=== PATIENT | male | born 1950 | race Hispanic/Latino ===

== ENCOUNTER 2018-11-11 11:47 | Inpatient (IN) | payer MEDICARE, BC, OTHER ==
[2018-11-11 11:47] VITALS: BMI 32.3
[2018-11-11] MEDS ORDERED: Piperacillin/Tazobact 3.375 GM in Sodium Chloride 0.9% 100 ML IVPB STA (12:49)
[2018-11-11] MEDS ORDERED: Morphine 4 MG/ML VIAL IVP STA (12:52)
[2018-11-11] MEDS ORDERED: Piperacillin/Tazobact 3.375 gm Inj IVPB ONE (13:08)
[2018-11-11] MEDS ORDERED: Vancomycin 1 g Inj ONE (13:09)
--- NOTE | 2018-11-11 13:09 | ED PDOC ---
Lower Extremity Pain/Injury Time Seen by Provider: 11/11/18 12:16 Chief Complaint (Nursing): Lower Extremity Problem/Injury Chief Complaint (Provider): Wound to left ankle History Per: Patient History/Exam Limitations: no limitations Onset/Duration Of Symptoms: Persistent Current Symptoms Are (Timing): Still Present Additional Complaint(s): 68yo male, with history of hypertension, HCH, diabetes, right BKA, comes to ER for evaluation of a wound on his left ankle. Patient states he was instructed by Dr. Deluna to come to ER for further evaluation. Patient states he had a wound vac placed on October 23 and since yesterday, he developed chill. He took a Tylenol as well as a Percocet, with no relief of symptoms. Patient otherwise denies any cough, congestion, shortness of breath, chest pain, numbness or tingling. He offers no additional complaints. PMD: Dr. Hutton Past Medical History Reviewed: Historical Data, Nursing Documentation, Vital Signs Vital Signs: Last Vital Signs Temp 98.5 F 11/11/18 12:11 Pulse 113 H 11/11/18 12:11 Resp 20 11/11/18 12:11 BP 132/79 11/11/18 12:11 Pulse Ox 97 11/11/18 12:11 - Medical History PMH: CAD, Diabetes, HTN, Hypercholesterolemia, Peripheral Edema Denies: Fractures, Chronic Kidney Disease - Surgical History Surgical History: Coronary Stent (x 4 ) - Family History Family History: States: Unknown Family Hx - Home Medications Home Medications: Ambulatory Orders Medication Instructions Recorded Atorvastatin [Lipitor] 40 mg PO HS 07/25/18 Carvedilol [Coreg] 3.125 mg PO Q12 07/25/18 Clopidogrel [Plavix] 75 mg PO DAILY 07/25/18 Empagliflozin/Metformin HCl 1 tab PO BID 07/25/18 [Synjardy Xr 12.5-1,000 mg Tab] Ergocalciferol (Vitamin D2) 50,000 unit PO SAT 07/25/18 [Vitamin D2] Insulin Degludec/Liraglutide 38 units SQ HS 07/25/18 [Xultophy 100 Unit-3.6 mg/ml] Lisinopril [Zestril] 5 mg PO DAILY 07/25/18 Multivit-Min/FA/Lycopen/Lutein 1 each PO DAILY 07/25/18 [Centrum Silver Tablet] Propylene Glycol/Peg 400 [Systane 1 drop BOTHEYES DAILY 07/25/18 0.3-0.4% Eye Drops] RX: Aspirin 325 mg PO DAILY 07/25/18 Cu/Se/Vit A/Vit C/Vit E/Zinc 1 tab PO DAILY 11/11/18 [Ocuvite] Ojiis-5-Ewpl Ethyl Esters 1 GM 2 gm PO HS 11/11/18 [Lovaza] - Allergies Allergies/Adverse Reactions: Allergies Allergy/AdvReac Type Severity Reaction Status Date / Time No Known Allergies Allergy Verified 07/25/18 13:54 Review of Systems ROS Statement: Except As Marked, All Systems Reviewed And Found Negative Constitutional: Positive for: Chills. Negative for: Fever Cardiovascular: Negative for: Chest Pain Respiratory: Negative for: Shortness of Breath Musculoskeletal: Positive for: Other (wound to left foot) Skin: Negative for: Rash Physical Exam - Reviewed Nursing Documentation Reviewed: Yes Vital Signs Reviewed: Yes - Physical Exam Appears: Positive for: Non-toxic, No Acute Distress Head Exam: Positive for: ATRAUMATIC, NORMAL INSPECTION, NORMOCEPHALIC Skin: Positive for: Normal Color Eye Exam: Positive for: Normal appearance Neck: Positive for: Supple Cardiovascular/Chest: Positive for: Regular Rate, Rhythm Respiratory: Positive for: Normal Breath Sounds Pulses-Dorsalis Pedis (L): 1+ Back: Positive for: Normal Inspection Extremity: Positive for: Other (right BKA; left lateral malleolus with superficial ulcer; (+) yellow drainage noted, with moderate surrounding erythema and warmth). Negative for: Tenderness, Calf Tenderness Neurologic/Psych: Positive for: Alert, Oriented - Laboratory Results Result Diagrams: 11/11/18 13:15 11/11/18 13:15 - ECG ECG: Positive for: Interpreted By Me, Viewed By Me ECG Rhythm: Positive for: Sinus Tachycardia Rate: 105 O2 Sat by Pulse Oximetry: 97 (RA) Pulse Ox Interpretation: Normal - Radiology X-Ray: Interpreted by Me, Viewed By Me X-Ray Interpretation: No Acute Disease, Other (poor inspiration) Medical Decision Making Medical Decision Making: Impression: 68yo male with non-healing wound to left lateral malleolus Plan: -- Podiatry consult -- Labs -- Morphine 2mg IV -- Zofran 4mg IV 1250 Case discussed with Meenakshi, podiatry resident, who is requesting ankle films, IV Vancomysin and IV Zosyn. She states to not remove the dressing at this time. 1415 XR Left ankle FINDINGS: BONES: Plantar and Achilles Tendon insertion calcaneal spurs. No fractures identified. JOINTS: Normal. No osteoarthritis. Ankle mortise maintained. Talar dome intact SOFT TISSUES: Soft tissue swelling about the ankle anteriorly and laterally. There may be an ulcer related to the distal fibula. No adjacent underlying osseous abnormalities. OTHER FINDINGS: None. IMPRESSION: Soft tissue swelling without acute articular or osseous abnormality. 1415 Lactate noted to be 2.[address] Perkins, recommends bolus and repeat VBG in 3 hours. Patient informed of plan, agrees and states is pain has improved. 1545 Patient seen and evaluated by podiatry resident at bedside. [address] Pino, and patient to be admitted under his service. Dr. Anderson for ID consult per Dr. Pino's request. Plan for admission discussed with patient, who is agreeable. Scribe Attestation: Documented by Gracy Mcadams, acting as a scribe for KEVON Valverde. Provider Scribe Attestation: All medical record entries made by the Scribe were at my direction and personally dictated by me. I have reviewed the chart and agree that the record accurately reflects my personal performance of the history, physical exam, medical decision making, and the department course for this patient. I have also personally directed, reviewed, and agree with the discharge instructions and disposition. Disposition - Clinical Impression Clinical Impression: Cellulitis, Diabetic foot ulcer - Patient ED Disposition Is Patient to be Admitted: Yes - Disposition Disposition Time: 18:05 Condition: FAIR - Pt Status Changed To: Hospital Disposition Of: Inpatient - Admit Certification Admit to Inpatient:: After my assessment, the patient will require hospitalization for at least two midnights. This is because of the severity of symptoms shown, intensity of services needed, and/or the medical risk in this patient being treated as an outpatient.
--- NOTE | 2018-11-11 14:16 | RAD ---
Date of service: 11/11/2018 PROCEDURE: Left Ankle Radiographs. HISTORY: Pain. No history of recent/ related trauma provided COMPARISON: None available. FINDINGS: BONES: Plantar and Achilles Tendon insertion calcaneal spurs. No fractures identified. JOINTS: Normal. No osteoarthritis. Ankle mortise maintained. Talar dome intact SOFT TISSUES: Soft tissue swelling about the ankle anteriorly and laterally. There may be an ulcer related to the distal fibula. No adjacent underlying osseous abnormalities. OTHER FINDINGS: None. IMPRESSION: Soft tissue swelling without acute articular or osseous abnormality.
[2018-11-11 14:17] LABS: VENOUS BLOOD GAS BASE EXCESS 1.5 mmol/L (0.0-2.0); VENOUS BLOOD GAS PCO2 49 mmHg (40-60); VENOUS BLOOD GAS PO2 28 mm/Hg (30-55); VENOUS BLOOD PH 7.36 (7.32-7.43)
[2018-11-11] MEDS ORDERED: Sodium Chloride 0.9% 1,000 ML IV STA (14:21)
[2018-11-11 14:51] LABS: BASO # 0.1 K/uL (0.0-0.2); EOS # 0.3 K/uL (0.0-0.7); MEAN CORPUSCULAR HEMOGLOBIN 26.6 pg (27.0-31.0); MONO # 1.2 K/uL (0.0-0.8)
[2018-11-11 14:55] LABS: ALB/GLOB RATIO 1.2 (1.0-2.1); ALBUMIN 4.6 g/dL (3.5-5.0); BLOOD UREA NITROGEN 30 mg/dl (9-20); CALCIUM 10.2 mg/dL (8.4-10.2); GFR NON-AFRICAN AMERICAN > 60
[2018-11-11 14:56] LABS: ALT/SGPT 20 U/L (21-72); AST/SGOT 25 U/L (17-59)
[2018-11-11 15:00] LABS: BASO % 0.7 % (0.0-2.0); EOS % 2.7 % (0.0-4.0); HEMOGLOBIN 14.9 g/dL (12.0-18.0); LYMPH % 8.5 % (20.0-40.0); MEAN CELL VOLUME 82.8 fl (80.0-94.0); MEAN CORPUSCULAR HGB CONC 32.2 g/dL (33.0-37.0); MEAN PLATELET VOLUME 9.7 fl (7.2-11.7); MONO % 10.7 % (0.0-10.0); NEUT # 8.7 K/uL (1.8-7.0); NEUT % 77.4 % (50.0-75.0); NRBC % 0.1 % (0.0-0.0); PLATELET COUNT 199 K/uL (130-400); RBC 5.59 Mil/uL (4.40-5.90); RED CELL DISTRIBUTION WIDTH 14.9 % (11.5-14.5); WHITE BLOOD COUNT 11.2 K/uL (4.8-10.8)
--- NOTE | 2018-11-11 16:08 | CP.PCM.CON ---
History of Present Illness - History of Present Illness History of Present Illness: Podiatry Consult Note: Dr. Deluna 68 year old male patient with PMHx of DM, seen and evaluated for L ankle ulceration. Patient states that he saw Dr. Deluna today who recommended he come to the ED for IV antibiotics. Patient states that he has had the ulcer for over two and a half years, however it has not fully healed. He reports chills over the past day and states that his ulceration has caused him significant pain. Patient accompanied by his bedside at today's visit. Denies any additional acute complaints at this time. Denies N/V/F/SOB/CP. PMD: Dr. Hutton PMHx: DM2, HTN, CAD with stent placement, chronic PAD PSHx: R BKA SHx: Denies tobacco use, denies alcohol use ALL: NKDA Review of Systems - Constitutional Constitutional: As Per HPI Past Patient History - Past Medical History & Family History Past Medical History?: Yes - Past Social History Smoking Status: Never Smoked - CARDIAC Hx Hypercholesterolemia: Yes Hx Hypertension: Yes Hx Peripheral Edema: Yes - PULMONARY Hx Respiratory Disorders: No - NEUROLOGICAL Hx Neurological Disorder: No - HEENT Hx HEENT Problems: Yes Hx Cataracts: Yes Other/Comment: wears glasses, retinal hemorrhage 05/2014 - RENAL Hx Chronic Kidney Disease: No - ENDOCRINE/METABOLIC Hx Endocrine Disorders: Yes Hx Diabetes Mellitus Type 2: Yes - INTEGUMENTARY Hx Dermatological Problems: Yes (STUMP ULCER RT.) - MUSCULOSKELETAL/RHEUMATOLOGICAL Hx Fractures: No - GASTROINTESTINAL Hx Gastrointestinal Disorders: No Hx Gastroesophageal Reflux: Yes (no problems in the last 10 months) - GENITOURINARY/GYNECOLOGICAL Hx Genitourinary Disorders: No - PSYCHIATRIC Hx Emotional Abuse: No Hx Physical Abuse: No Hx Substance Use: No - SURGICAL HISTORY Hx Coronary Stent: Yes (x 4 ) - ANESTHESIA Hx Anesthesia Reactions: No Hx Malignant Hyperthermia: No Meds Allergies/Adverse Reactions: Allergies Allergy/AdvReac Type Severity Reaction Status Date / Time No Known Allergies Allergy Verified 07/25/18 13:54 Physical Exam - Constitutional Appears: Non-toxic, No Acute Distress - Head Exam Head Exam: ATRAUMATIC, NORMOCEPHALIC - Extremities Exam Additional comments: Left lower extremity exam, right BKA: Vascular: DP/PT 1/4, CFT < 3seconds, TG warm to [place]-wound area, + 1 edema noted perimalleolar region Ortho: Tenderness to palpation of malleolar site, R BKA, MMT 4/5, no pain with calf compression Neuro: Gross and protective sensation diminished Derm: Ulceration appreciated to lateral malleolus, measuring approximately 3cm x2cm x .4cm, with fibrous wound base. Mild serous drainage appreciated, no purulence, no malodor. Cellulitis appreciated to L anterior aspect of inferior 1/3 of leg extending to ankle joint and laterally to ulceration. No tunneling, no tracking, no probe to bone. - Neurological Exam Neurological exam: Alert, Oriented x3 - Psychiatric Exam Psychiatric exam: Normal Affect, Normal Mood Results - Vital Signs Recent Vital Signs: Last Vital Signs Temp 98.5 F 11/11/18 12:11 Pulse 105 H 11/11/18 15:47 Resp 20 11/11/18 12:11 BP 132/79 11/11/18 12:11 Pulse Ox 97 11/11/18 15:47 - Labs Result Diagrams: 11/11/18 13:15 11/11/18 13:15 Labs: Laboratory Results - last 24 hr 11/11/18 11/11/18 11/11/18 13:15 13:15 14:08 WBC 11.2 H RBC 5.59 Hgb 14.9 Hct 46.3 MCV 82.8 MCH 26.6 L MCHC 32.2 L RDW 14.9 H Plt Count 199 MPV 9.7 Neut % (Auto) 77.4 H Lymph % (Auto) 8.5 L Warren % (Auto) 10.7 H Eos % (Auto) 2.7 Baso % (Auto) 0.7 Neut # (Auto) 8.7 H Lymph # (Auto) 1.0 Warren # (Auto) 1.2 H Eos # (Auto) 0.3 Baso # (Auto) 0.1 pO2 28 L VBG pH 7.36 VBG pCO2 49 VBG HCO3 24.8 VBG Total CO2 29.2 H VBG O2 Sat (Calc) 54.5 VBG Base Excess 1.5 VBG Potassium 4.8 Glucose 162 H Lactate 2.3 H FiO2 21.0 Sodium 139 135.0 Potassium 4.8 Chloride 101 107.0 Carbon Dioxide 22 Anion Gap 21 H BUN 30 H Creatinine 0.9 Est GFR ( Amer) > 60 Est GFR (Non-Af Amer) > 60 Random Glucose 156 H Calcium 10.2 Total Bilirubin 0.7 AST 25 ALT 20 L D Alkaline Phosphatase 140 H D Total Protein 8.5 H Albumin 4.6 Globulin 3.9 Albumin/Globulin Ratio 1.2 Venous Blood Potassium 4.8 Influenza Typ A,B (EIA) 11/11/18 14:55 WBC RBC Hgb Hct MCV MCH MCHC RDW Plt Count MPV Neut % (Auto) Lymph % (Auto) Warren % (Auto) Eos % (Auto) Baso % (Auto) Neut # (Auto) Lymph # (Auto) Warren # (Auto) Eos # (Auto) Baso # (Auto) pO2 VBG pH VBG pCO2 VBG HCO3 VBG Total CO2 VBG O2 Sat (Calc) VBG Base Excess VBG Potassium Glucose Lactate FiO2 Sodium Potassium Chloride Carbon Dioxide Anion Gap BUN Creatinine Est GFR ( Amer) Est GFR (Non-Af Amer) Random Glucose Calcium Total Bilirubin AST ALT Alkaline Phosphatase Total Protein Albumin Globulin Albumin/Globulin Ratio Venous Blood Potassium Influenza Typ A,B (EIA) Negative for flu a/b Assessment & Plan - Assessment and Plan (Free Text) Assessment: 68 year old male patient with PMHx of DM, seen and evaluated for L ankle ulcer ation secondary to PAD and Diabetes . Plan: Patient seen and evaluated with all questions and concerns addressed Labs, vitals, chart reviewed; WBC 11.2, afebrile, lactate 2.3 Local wound care to L ankle ulceration; betadine, telfa, DSD L ankle x-ray taken; soft tissue swelling without acute articular or osseous abnormality Continue IV abx; vanc/zosyn C/w with pain control Wound cx taken; pending Will continue to follow Thank you for the consult - Date & Time Date: 11/11/18 Time: 16:04
--- NOTE | 2018-11-11 16:54 | RAD ---
Date of service: 11/11/2018 HISTORY: tachycardia COMPARISON: 07/20/2014. FINDINGS: LUNGS: No active pulmonary disease. PLEURA: No significant pleural effusion identified, no pneumothorax apparent. CARDIOVASCULAR: Atherosclerotic calcifications identified primarily aortic arch. No radiographic findings to suggest acute or significant cardiovascular disease. OSSEOUS STRUCTURES: No significant abnormalities. VISUALIZED UPPER ABDOMEN: Normal. OTHER FINDINGS: None. IMPRESSION: No active disease. No significant interval change compared to the prior examination(s).
[2018-11-11 17:07] LABS: EOSINOPHIL 4 % (0-7); LYMPHOCYTE 14 % (20-50); MONOCYTE 9 % (0-10); NEUTROPHIL 73 % (42-75); PLATELET ESTIMATE NORMAL (NORMAL); TOTAL CELLS COUNTED 100
[2018-11-11 17:08] LABS: ANISOCYTOSIS SLIGHT; OVALOCYTES SLIGHT
[2018-11-11 17:41] LABS: VENOUS BLOOD GAS BASE EXCESS -1.3 mmol/L (0.0-2.0); VENOUS BLOOD GAS PCO2 46 mmHg (40-60); VENOUS BLOOD GAS PO2 36 mm/Hg (30-55); VENOUS BLOOD PH 7.34 (7.32-7.43)
[2018-11-11 18:52] LABS: URINE BACTERIA RARE (<OCC); URINE BILIRUBIN NEGATIVE (NEGATIVE); URINE BLOOD NEGATIVE (NEGATIVE); URINE CLARITY CLEAR (Clear); URINE COLOR YELLOW (YELLOW); URINE GLUCOSE (UA) >=500 mg/dL (NEGATIVE); URINE LEUKOCYTE ESTERASE TRACE Leu/uL (Negative); URINE PROTEIN NEGATIVE (NEGATIVE); URINE UROBILINOGEN 0.2-1.0 mg/dL (0.2-1.0)
[2018-11-11] MEDS: Omega-3-Acid Ethyl Esters 1 GM Cap PO SCH (23:00)
[2018-11-11] MEDS: Piperacillin/Tazobact 3.375 GM in Sodium Chloride 0.9% 100 ML IVPB SCH (23:00)
[2018-11-12] MEDS ORDERED: Morphine 4 MG/ML VIAL IVP ONE (00:33)
[2018-11-12] MEDS: Piperacillin/Tazobact 3.375 GM in Sodium Chloride 0.9% 100 ML IVPB SCH ×4 (04:12→21:14)
--- NOTE | 2018-11-12 08:14 | CP.PCM.PN ---
Subjective - Date & Time of Evaluation Date of Evaluation: 11/12/18 Time of Evaluation: 08:14 - Subjective Subjective: Podiatry Consult Note: Dr. Deluna 68 year old male patient seen and evaluated for L ankle ulceration. Patient is resting comfortably and in NAD. He states that the outside of his ankle where his ulceration is located causes pain when he walks. Denies any additional acute complaints at this time. Denies N/V/F/SOB/CP. Objective - Vital Signs/Intake and Output Vital Signs (last 24 hours): Temp Pulse Resp BP Pulse Ox 98.0 F 98 H 16 113/76 95 11/12/18 05:13 11/12/18 05:13 11/12/18 05:13 11/12/18 05:13 11/12/18 05:13 - Medications Medications: Current Medications Aspirin (Aspirin) 325 mg PO DAILY [facility] Atorvastatin Calcium (Lipitor) 40 mg PO HS [facility] Last Admin: 11/11/18 23:00 Dose: Not Given Carvedilol (Coreg) 3.125 mg PO Q12 [facility] Clopidogrel Bisulfate (Plavix) 75 mg PO DAILY [facility] Ergocalciferol (Drisdol 50,000 Intl Units Cap) 1 cap PO SAT [facility] Home Med (Cu/Se/Vit A/Vit C/Vit E/Zinc [Ocuvite]) 1 tab PO DAILY [facility] Home Med (Empagliflozin/Metformin Hcl [Synjardy Xr 12.5-1,000 Mg Tab]) 1 tab PO BID [facility] Home Med (Insulin Degludec/Liraglutide [Xultophy 100 Unit-3.6mg/Ml Pen]) 38 units SQ HS [facility] Home Med (Multivit-Min/Fa/Lycopen/Lutein [Centrum Silver Tablet]) 1 each PO DAILY [facility] Home Med (Propylene Glycol/Peg 400 [Systane 0.3-0.4% Eye Drops]) 1 drop BOTHEYES DAILY [facility] Vancomycin HCl 1 gm/ Sodium (Chloride) 250 mls @ 166.667 mls/hr IVPB DAILY [facility]; Protocol Piperacillin Sod/Tazobactam (Sod 3.375 gm/ Sodium Chloride) 100 mls @ 100 mls/hr IVPB Q6 [facility]; Protocol Last Admin: 11/12/18 04:12 Dose: 100 mls/hr Lisinopril (Zestril) 5 mg PO DAILY [facility] [id number] Ethyl Esters (Lovaza) 2 gm PO HS [facility] Last Admin: 11/11/18 23:00 Dose: Not Given - Labs Labs: 11/11/18 13:15 11/11/18 13:15 - Constitutional Appears: Non-toxic, No Acute Distress - Extremities Exam Additional comments: Left lower extremity exam, right BKA: Vascular: DP/PT 1/4, CFT < 3seconds, TG warm to touch to [place]-wound area, + 1 edema noted perimalleolar region Ortho: Tenderness to palpation of malleolar site, R BKA, MMT 4/5, no pain with calf compression Neuro: Gross and protective sensation diminished Derm: Ulceration appreciated to lateral malleolus, measuring approximately 3cm x2cm x .4cm, with fibrous wound base. Mild serous drainage appreciated, no purulence, no malodor. Cellulitis appreciated to L anterior aspect of inferior 1/3 of leg extending to ankle joint and laterally to ulceration. No tunneling, no tracking, no probe to bone. - Neurological Exam Neurological Exam: Alert, Awake, Oriented x3 - Psychiatric Exam Psychiatric exam: Normal Mood Assessment and Plan - Assessment and Plan (Free Text) Assessment: 68 year old male patient with PMHx of DM, seen and evaluated for L ankle ulceration secondary to PAD and diabetes Plan: Patient seen and evaluated with all questions and concerns addressed Labs, vitals, chart reviewed; WBC 11.2, afebrile Local wound care to L ankle ulceration; betadine, telfa, DSD L ankle x-ray taken; soft tissue swelling without acute articular or osseous abnormality Continue IV abx; vanc/zosyn ID reccs appreciated C/w with pain control Wound cx taken; results pending Will continue to follow
--- NOTE | 2018-11-12 10:09 | CP.PCM.CON ---
Past Patient History - Past Medical History & Family History Past Medical History?: Yes - Past Social History Smoking Status: Never Smoked - CARDIAC Hx Hypercholesterolemia: Yes Hx Hypertension: Yes Hx Peripheral Edema: Yes - PULMONARY Hx Respiratory Disorders: No - NEUROLOGICAL Hx Neurological Disorder: No - HEENT Hx HEENT Problems: Yes Hx Cataracts: Yes Other/Comment: wears glasses, retinal hemorrhage 05/2014 - RENAL Hx Chronic Kidney Disease: No - ENDOCRINE/METABOLIC Hx Endocrine Disorders: Yes Hx Diabetes Mellitus Type 2: Yes - INTEGUMENTARY Hx Dermatological Problems: No - MUSCULOSKELETAL/RHEUMATOLOGICAL Hx Fractures: No - GASTROINTESTINAL Hx Gastrointestinal Disorders: No Hx Gastroesophageal Reflux: No - GENITOURINARY/GYNECOLOGICAL Hx Genitourinary Disorders: No - PSYCHIATRIC Hx Psychophysiologic Disorder: No Hx Emotional Abuse: No Hx Physical Abuse: No Hx Substance Use: No - SURGICAL HISTORY Hx Coronary Stent: Yes (x 4 ) - ANESTHESIA Hx Anesthesia: Yes Hx Anesthesia Reactions: No Hx Malignant Hyperthermia: No Has any member of the family had a problem w/ anesthesia?: No Meds Allergies/Adverse Reactions: Allergies Allergy/AdvReac Type Severity Reaction Status Date / Time No Known Allergies Allergy Verified 07/25/18 13:54 - Medications Medications: Current Medications Aspirin (Aspirin) 325 mg PO DAILY [facility] Last Admin: 11/12/18 09:08 Dose: 325 mg Atorvastatin Calcium (Lipitor) 40 mg PO HS [facility] Last Admin: 11/11/18 23:00 Dose: Not Given Carvedilol (Coreg) 3.125 mg PO Q12 [facility] Last Admin: 11/12/18 09:02 Dose: 3.125 mg Clopidogrel Bisulfate (Plavix) 75 mg PO DAILY [facility] Last Admin: 11/12/18 09:02 Dose: 75 mg Ergocalciferol (Drisdol 50,000 Intl Units Cap) 1 cap PO SAT [facility] Home Med (Cu/Se/Vit A/Vit C/Vit E/Zinc [Ocuvite]) 1 tab PO DAILY [facility] Home Med (Empagliflozin/Metformin Hcl [Synjardy Xr 12.5-1,000 Mg Tab]) 1 tab PO BID [facility] Home Med (Insulin Degludec/Liraglutide [Xultophy 100 Unit-3.6mg/Ml Pen]) 38 units SQ HS [facility] Home Med (Multivit-Min/Fa/Lycopen/Lutein [Centrum Silver Tablet]) 1 each PO DAILY [facility] Home Med (Propylene Glycol/Peg 400 [Systane 0.3-0.4% Eye Drops]) 1 drop BOTHEYES DAILY [facility] Vancomycin HCl 1 gm/ Sodium (Chloride) 250 mls @ 166.667 mls/hr IVPB DAILY [facility]; Protocol Last Admin: 11/12/18 09:03 Dose: 166.667 mls/hr Piperacillin Sod/Tazobactam (Sod 3.375 gm/ Sodium Chloride) 100 mls @ 100 mls/hr IVPB Q6 [facility]; Protocol Last Admin: 11/12/18 09:04 Dose: 100 mls/hr Lisinopril (Zestril) 5 mg PO DAILY [facility] Last Admin: 11/12/18 09:04 Dose: 5 mg [id number] Ethyl Esters (Lovaza) 2 gm PO HS [facility] Last Admin: 11/11/18 23:00 Dose: Not Given Results - Vital Signs Recent Vital Signs: Last Vital Signs Temp 98.2 F 11/12/18 08:27 Pulse 97 H 11/12/18 09:04 Resp 18 11/12/18 08:27 BP 130/83 11/12/18 09:04 Pulse Ox 94 L 11/12/18 08:27 - Labs Result Diagrams: 11/11/18 13:15 11/11/18 13:15 Labs: Laboratory Results - last 24 hr 11/11/18 11/11/18 11/11/18 13:15 13:15 14:08 WBC 11.2 H RBC 5.59 Hgb 14.9 Hct 46.3 MCV 82.8 MCH 26.6 L MCHC 32.2 L RDW 14.9 H Plt Count 199 MPV 9.7 Neut % (Auto) 77.4 H Lymph % (Auto) 8.5 L Bond % (Auto) 10.7 H Eos % (Auto) 2.7 Baso % (Auto) 0.7 Neut # (Auto) 8.7 H Lymph # (Auto) 1.0 Bond # (Auto) 1.2 H Eos # (Auto) 0.3 Baso # (Auto) 0.1 Neutrophils % (Manual) 73 Lymphocytes % (Manual) 14 L Monocytes % (Manual) 9 Eosinophils % (Manual) 4 Platelet Estimate Normal Anisocytosis (manual) Slight Ovalocytes Slight pO2 28 L VBG pH 7.36 VBG pCO2 49 VBG HCO3 24.8 VBG Total CO2 29.2 H VBG O2 Sat (Calc) 54.5 VBG Base Excess 1.5 VBG Potassium 4.8 Glucose 162 H Lactate 2.3 H FiO2 21.0 Sodium 139 135.0 Potassium 4.8 Chloride 101 107.0 Carbon Dioxide 22 Anion Gap 21 H BUN 30 H Creatinine 0.9 Est GFR ( Amer) > 60 Est GFR (Non-Af Amer) > 60 POC Glucose (mg/dL) Random Glucose 156 H Calcium 10.2 Total Bilirubin 0.7 AST 25 ALT 20 L D Alkaline Phosphatase 140 H D Total Protein 8.5 H Albumin 4.6 Globulin 3.9 Albumin/Globulin Ratio 1.2 Venous Blood Potassium 4.8 Urine Color Urine Clarity Urine pH Ur Specific Franklin Urine Protein Urine Glucose (UA) Urine Ketones Urine Blood Urine Nitrate Urine Bilirubin Urine Urobilinogen Ur Leukocyte Esterase Urine RBC (Auto) Urine Microscopic WBC Urine Bacteria Influenza Typ A,B (EIA) 11/11/18 11/11/18 11/11/18 14:55 17:30 18:40 WBC RBC Hgb Hct MCV MCH MCHC RDW Plt Count MPV Neut % (Auto) Lymph % (Auto) Bond % (Auto) Eos % (Auto) Baso % (Auto) Neut # (Auto) Lymph # (Auto) Bond # (Auto) Eos # (Auto) Baso # (Auto) Neutrophils % (Manual) Lymphocytes % (Manual) Monocytes % (Manual) Eosinophils % (Manual) Platelet Estimate Anisocytosis (manual) Ovalocytes pO2 36 VBG pH 7.34 VBG pCO2 46 VBG HCO3 23.0 VBG Total CO2 26.2 VBG O2 Sat (Calc) 71.3 H VBG Base Excess -1.3 L VBG Potassium 4.1 Glucose 229 H Lactate 2.0 FiO2 21.0 Sodium 136.0 Potassium Chloride 107.0 Carbon Dioxide Anion Gap BUN Creatinine Est GFR ( Amer) Est GFR (Non-Af Amer) POC Glucose (mg/dL) Random Glucose Calcium Total Bilirubin AST ALT Alkaline Phosphatase Total Protein Albumin Globulin Albumin/Globulin Ratio Venous Blood Potassium 4.1 Urine Color Yellow Urine Clarity Clear Urine pH 6.0 Ur Specific Franklin 1.026 Urine Protein Negative Urine Glucose (UA) >=500 Urine Ketones Negative Urine Blood Negative Urine Nitrate Negative Urine Bilirubin Negative Urine Urobilinogen 0.2-1.0 Ur Leukocyte Esterase Trace Urine RBC (Auto) 3 Urine Microscopic WBC 9 H Urine Bacteria Rare Influenza Typ A,B (EIA) Negative for flu a/b 11/11/18 11/12/18 22:14 05:59 WBC RBC Hgb Hct MCV MCH MCHC RDW Plt Count MPV Neut % (Auto) Lymph % (Auto) Bond % (Auto) Eos % (Auto) Baso % (Auto) Neut # (Auto) Lymph # (Auto) Bond # (Auto) Eos # (Auto) Baso # (Auto) Neutrophils % (Manual) Lymphocytes % (Manual) Monocytes % (Manual) Eosinophils % (Manual) Platelet Estimate Anisocytosis (manual) Ovalocytes pO2 VBG pH VBG pCO2 VBG HCO3 VBG Total CO2 VBG O2 Sat (Calc) VBG Base Excess VBG Potassium Glucose Lactate FiO2 Sodium Potassium Chloride Carbon Dioxide Anion Gap BUN Creatinine Est GFR ( Amer) Est GFR (Non-Af Amer) POC Glucose (mg/dL) 194 H 165 H Random Glucose Calcium Total Bilirubin AST ALT Alkaline Phosphatase Total Protein Albumin Globulin Albumin/Globulin Ratio Venous Blood Potassium Urine Color Urine Clarity Urine pH Ur Specific Franklin Urine Protein Urine Glucose (UA) Urine Ketones Urine Blood Urine Nitrate Urine Bilirubin Urine Urobilinogen Ur Leukocyte Esterase Urine RBC (Auto) Urine Microscopic WBC Urine Bacteria Influenza Typ A,B (EIA)
--- NOTE | 2018-11-12 12:32 | CARD ---
APPROVED REPORT Date of service: 11/11/2018 EKG Measurement Heart [id number] <Conclusion> Sinus tachycardia with 1st degree AV block Left axis deviation Right bundle branch block Abnormal ECG
[2018-11-12] MEDS: Omega-3-Acid Ethyl Esters 1 GM Cap PO SCH (21:16)
--- NOTE | 2018-11-13 07:02 | CP.PCM.HP ---
History of Present Illness - History of Present Illness History of Present Illness: This is a 68 y/o male admitted due to left ankle wound infection. He has a hx of PVD and recurrent left ankle ulcer and follows up with Podiatry. At his last visit he was noted to have infected wound hence was advised hospitalization for Iv antibiotics. Medical Hx PVD HTN Uncontrolled DM 2 right BKA Present on Admission - Present on Admission Any Indicators Present on Admission: No History of DVT/PE: No History of Uncontrolled Diabetes: Yes Urinary Catheter: No Decubitus Ulcer Present: No Review of Systems - Genitourinary Genitourinary: Urinary Frequency, Urinary Urgency Past Patient History - Past Medical History & Family History Past Medical History?: Yes - Past Social History Smoking Status: Never Smoked - CARDIAC Hx Hypercholesterolemia: Yes Hx Hypertension: Yes Hx Peripheral Edema: Yes - PULMONARY Hx Respiratory Disorders: No - NEUROLOGICAL Hx Neurological Disorder: No - HEENT Hx HEENT Problems: Yes Hx Cataracts: Yes Other/Comment: wears glasses, retinal hemorrhage 05/2014 - RENAL Hx Chronic Kidney Disease: No - ENDOCRINE/METABOLIC Hx Endocrine Disorders: Yes Hx Diabetes Mellitus Type 2: Yes - INTEGUMENTARY Hx Dermatological Problems: No - MUSCULOSKELETAL/RHEUMATOLOGICAL Hx Fractures: No - GASTROINTESTINAL Hx Gastrointestinal Disorders: No Hx Gastroesophageal Reflux: No - GENITOURINARY/GYNECOLOGICAL Hx Genitourinary Disorders: No - PSYCHIATRIC Hx Psychophysiologic Disorder: No Hx Emotional Abuse: No Hx Physical Abuse: No Hx Substance Use: No - SURGICAL HISTORY Hx Coronary Stent: Yes (x 4 ) - ANESTHESIA Hx Anesthesia: Yes Hx Anesthesia Reactions: No Hx Malignant Hyperthermia: No Has any member of the family had a problem w/ anesthesia?: No Meds Allergies/Adverse Reactions: Allergies Allergy/AdvReac Type Severity Reaction Status Date / Time No Known Allergies Allergy Verified 07/25/18 13:54 Physical Exam - Head Exam Head Exam: NORMAL INSPECTION - Eye Exam Eye Exam: Normal appearance - ENT Exam ENT Exam: Mucous Membranes Moist - Respiratory Exam Respiratory Exam: Clear to Auscultation Bilateral - Cardiovascular Exam Cardiovascular Exam: REGULAR RHYTHM - GI/Abdominal Exam GI & Abdominal Exam: Normal Bowel Sounds - Neurological Exam Neurological exam: CN II-XII Intact, Oriented x3 - Psychiatric Exam Psychiatric exam: Normal Mood Results - Vital Signs Recent Vital Signs: Last Vital Signs Temp 98.4 F 11/13/18 01:00 Pulse 100 H 11/13/18 01:00 Resp 18 11/13/18 01:00 BP 112/72 11/13/18 01:00 Pulse Ox 94 L 11/13/18 01:00 - Labs Result Diagrams: 11/11/18 13:15 11/11/18 13:15 Labs: Laboratory Results - last 24 hr 11/12/18 11/12/18 11/12/18 11:21 16:09 21:43 POC Glucose (mg/dL) 246 H 269 H 221 H Vancomycin Trough 11/13/18 11/13/18 05:05 05:16 POC Glucose (mg/dL) 226 H Vancomycin Trough 6.4 Assessment & Plan (1) Diabetic foot ulcer Status: Acute (2) Cellulitis Status: Acute (3) Diabetes mellitus type 2 in obese Status: Acute (4) Anemia Status: Chronic (5) CAD (coronary artery disease) Status: Chronic Priority: Medium (6) Hypertension Status: Chronic (7) Peripheral vascular disease of extremity Status: Chronic Priority: High Onset Date: 10/20/14 - Assessment and Plan (Free Text) Plan: start IV antibiotics ID eval podiatry cont home meds. pain meds.
[2018-11-13] MEDS ORDERED: Povidone Iodine Topical 10% Sol ONE (07:52)
[2018-11-13] MEDS: METFORMIN HCL PO SCH ×2 (08:31→17:21)
[2018-11-13] MEDS: Patient's Own Med (Cu/Se/Vit A/Vit C/Vit E/Zinc [Ocuvite] 1 TAB) PO SCH (08:31)
[2018-11-13] MEDS: EMPAGLIFLOZIN PO SCH ×2 (08:31→17:21)
[2018-11-13] MEDS: LYCOPEN PO SCH ×2 (08:32→08:34)
[2018-11-13] MEDS: [UNRECOGNIZED DRUG - OTHER] PO SCH ×2 (08:32→08:34)
[2018-11-13] MEDS: MULTIVIT MIN PO SCH ×2 (08:32→08:34)
[2018-11-13] MEDS: LUTEIN PO SCH ×2 (08:32→08:34)
[2018-11-13] MEDS: PEG BOTHEYES SCH (08:35)
[2018-11-13] MEDS: PROPYLENE GLYCOL BOTHEYES SCH (08:35)
--- NOTE | 2018-11-13 09:09 | CP.PCM.PN ---
Subjective - Date & Time of Evaluation Date of Evaluation: 11/13/18 Time of Evaluation: 09:09 - Subjective Subjective: Podiatry Consult Note: Dr. Deluna 68 year old male patient seen and evaluated for L ankle ulceration and cellulitis. Patient AAOx3 and in NAD. Patient states that he has not been able to sleep well the past two days. He states that his leg is causing him pain especially during the middle of the night, however the Tylenol typically helps. Patient denies any additional acute pedal complaints at this time. Denies N/V/F/SOB/CP. Objective - Vital Signs/Intake and Output Vital Signs (last 24 hours): Temp Pulse Resp BP Pulse Ox 97.2 F L 95 H 20 129/74 95 11/13/18 08:49 11/13/18 08:49 11/13/18 08:49 11/13/18 08:49 11/13/18 08:49 - Medications Medications: Current Medications Acetaminophen (Tylenol 325mg Tab) 650 mg PO Q6 PRN PRN Reason: Pain, Mild (1-3) Last Admin: 11/13/18 08:25 Dose: 650 mg Aspirin (Aspirin) 325 mg PO DAILY [facility] Last Admin: 11/12/18 09:08 Dose: 325 mg Atorvastatin Calcium (Lipitor) 40 mg PO HS [facility] Last Admin: 11/12/18 21:15 Dose: 40 mg Carvedilol (Coreg) 3.125 mg PO Q12 [facility] Last Admin: 11/13/18 08:30 Dose: 3.125 mg Clopidogrel Bisulfate (Plavix) 75 mg PO DAILY [facility] Last Admin: 11/13/18 08:34 Dose: 75 mg Ergocalciferol (Drisdol 50,000 Intl Units Cap) 1 cap PO SAT [facility] Home Med (Cu/Se/Vit A/Vit C/Vit E/Zinc [Ocuvite]) 1 tab PO DAILY [facility] Last Admin: 11/13/18 08:31 Dose: 1 tab Home Med (Empagliflozin/Metformin Hcl [Synjardy Xr 12.5-1,000 Mg Tab]) 1 tab PO BID [facility] Last Admin: 11/13/18 08:31 Dose: 1 tab Home Med (Insulin Degludec/Liraglutide [Xultophy 100 Unit-3.6mg/Ml Pen]) 38 units SQ [facility] Home Med (Multivit-Min/Fa/Lycopen/Lutein [Centrum Silver Tablet]) 1 each PO DAILY [facility] Last Admin: 11/13/18 08:34 Dose: 1 each Home Med (Propylene Glycol/Peg 400 [Systane 0.3-0.4% Eye Drops]) 1 drop BOTHEYES DAILY [facility] Last Admin: 11/13/18 08:35 Dose: 1 drop Lisinopril (Zestril) 5 mg PO DAILY [facility] Last Admin: 11/13/18 08:35 Dose: 5 mg [id number]-9-[id number] Ethyl Esters (Lovaza) 2 gm PO HS [facility] Last Admin: 11/12/18 21:16 Dose: 2 gm - Labs Labs: 11/11/18 13:15 11/11/18 13:15 - Constitutional Appears: Non-toxic, No Acute Distress - Head Exam Head Exam: ATRAUMATIC, NORMOCEPHALIC - Extremities Exam Additional comments: Vascular: DP/PT 1/4, CFT < 3seconds, TG warm to touch to [place]-wound area, + 1 edema noted perimalleolar region Ortho: Tenderness to palpation of malleolar site, R BKA, MMT 4/5, no pain with calf compression Neuro: Gross and protective sensation diminished Derm: Ulceration appreciated to lateral malleolus, measuring approximately 3cm x2cm x .4cm, with fibrous wound base and macerated wound border. Mild serous drainage appreciated, no purulence, no malodor. Cellulitis appreciated to L anterior aspect of inferior 1/3 of leg extending to ankle joint and laterally to ulceration. No tunneling, no tracking, no probe to bone. - Neurological Exam Neurological Exam: Alert, Awake, Oriented x3 - Psychiatric Exam Psychiatric exam: Normal Affect, Normal Mood Assessment and Plan - Assessment and Plan (Free Text) Assessment: 68 year old male patient with PMHx of DM, seen and evaluated for L ankle ulceration secondary to PAD and diabetes Plan: Patient seen and evaluated with all questions and concerns addressed Labs, vitals, chart reviewed; afebrile Local wound care to L ankle ulceration; betadine, DSD L ankle x-ray taken; soft tissue swelling without acute articular or osseous abnormality Continue IV abx; vanc/zosyn Wound cx taken; staph aureus ID reccs appreciated C/w with pain control Will continue to follow
[2018-11-13 10:19] LABS: BASO % 0.3 % (0.0-2.0); EOS # 0.4 K/uL (0.0-0.7); EOS % 3.8 % (0.0-4.0); HEMOGLOBIN 13.6 g/dL (12.0-18.0); LYMPH # 0.9 K/uL (1.0-4.3); LYMPH % 8.2 % (20.0-40.0); MEAN CORPUSCULAR HEMOGLOBIN 26.7 pg (27.0-31.0); MEAN CORPUSCULAR HGB CONC 31.8 g/dL (33.0-37.0); MEAN PLATELET VOLUME 9.8 fl (7.2-11.7); MONO % 9.5 % (0.0-10.0); NEUT # 8.4 K/uL (1.8-7.0); NEUT % 78.2 % (50.0-75.0); NRBC % 0.1 % (0.0-0.0); RBC 5.1 Mil/uL (4.40-5.90); RED CELL DISTRIBUTION WIDTH 14.8 % (11.5-14.5); WHITE BLOOD COUNT 10.8 K/uL (4.8-10.8)
--- NOTE | 2018-11-13 11:37 | CP.PCM.CON ---
History of Present Illness - History of Present Illness History of Present Illness: 68 year old male patient with PMHx of DM, seen and evaluated for L ankle ulceration. Patient states that he has had the ulcer for over two and a half years, however it has not fully healed. He reports chills over the past day and states that his ulceration has caused him significant pain. Referred for ID evl for antibiotic management Started on empiric Vanco/Zosyn PMHx: DM2, HTN, CAD with stent placement, chronic PAD PSHx: R BKA SHx: Denies tobacco use, denies alcohol use ALL: NKDA Review of Systems - Review of Systems All systems: reviewed and no additional remarkable complaints except - Constitutional Constitutional: As Per HPI - EENT Eyes: absent: As Per HPI, Blind Spots, Blurred Vision, Change in Vision, Decreased Night Vision, Diplopia, Discharge, Dry Eye, Exophthalmos, Floaters, Irritation, Itchy Eyes, Loss of Peripheral Vision, Pain, Photophobia, Requires Corrective Lenses, Sees Flashes, Spots in Vision, Tunnel Vision, Other Visual Disturbances, Loss of Vision, Other Ears: absent: As Per HPI, Decreased Hearing, Ear Discharge, Ear Pain, Tinnitus, Abnormal Hearing, Disequilibrium, Dizziness, Other Nose/Mouth/Throat: absent: As Per HPI, Epistaxis, Nasal Congestion, Nasal Discharge, Nasal Obstruction, Nasal Trauma, Nose Pain, Post Nasal Drip, Sinus Pain, Sinus Pressure, Bleeding Gums, Change in Voice, Dental Pain, Dry Mouth, Dysphagia, Halitosis, Hoarsness, Lip Swelling, Mouth Lesions, Mouth Pain, Odyn ophagia, Sore Throat, Throat Swelling, Tongue Swelling, Facial Pain, Neck Pain, Neck Mass, Other - Cardiovascular Cardiovascular: absent: As Per HPI, Acrocyanosis, Chest Pain, Chest Pain at Rest, Chest Pain with Activity, Claudication, Diaphoresis, Dyspnea, Dyspnea on Exertion, Edema, Irregular Heart Rhythm, Pain Radiating to Arm/Neck/Jaw, Leg Edema, Leg Ulcers, Lightheadedness, Orthopnea, Palpitations, Paroxysmal Nocturnal Dyspnea, Pedal Edema, Radiating Pain, Rapid Heart Rate, Slow Heart Rate, Syncope, Other - Respiratory Respiratory: absent: Cough, Dyspnea, Hemoptysis, Dyspnea on Exertion, Wheezing, Snoring, Stridor, Pain on Inspiration, Chest Congestion, Excessive Mucous Production, Change in Mucous Color, Pain with Coughing, Other - Gastrointestinal Gastrointestinal: absent: As Per HPI, Abdominal Pain, Belching, Bloating, Change in Bowel Habits, Change in Stool Character, Coffee Ground Emesis, Constipation, Cramping, Diarrhea, Dyspepsia, Dysphagia, Early Satiety, Excessive Flatus, Fecal Incontinence, Heartburn, Hematemesis, Hematochezia, Loose Stools, Melena, Na usea, Odynophagia, Temesmus, Vomiting, Other - Genitourinary Genitourinary: absent: As Per HPI, Change in Urinary Stream, Difficulty Urinating, Dysuria, Flank Pain, Hematuria, Pyuria, Nocturia, Urinary Incontinence, Urinary Frequency, Urinary Hesitance, Urinary Urgency, Voiding Freq/Small Amts, Freq UTI, Hx Renal/Bladder Calculi, Hx /Renal Surgery, Bladder Distension, Other - Musculoskeletal Musculoskeletal: As Per HPI - Integumentary Integumentary: As Per HPI, Skin Pain, Wounds - Neurological Neurological: As Per HPI - Psychiatric Psychiatric: absent: As Per HPI, Abnormal Sleep Pattern, Anhedonia, Anxiety, Auditory Hallucinations, Behavioral Changes, Change in Appetite, Change in Libido, Confusion, Depression, Difficulty Concentrating, Hallucinations, Homicidal Ideation, Hopelessness, Irritability, Memory Loss, Mood Swings, Panic Attacks, Paranoia, Suicidal Ideation, Visual Hallucinations, Tactile Hallucinations, Other - Endocrine Endocrine: absent: As Per HPI, Change in Body Appearance, Change in Libido, Cold Intolorance, Deepening of Voice, Excessive Sweating, Fatigue, Flushing, Heat Intolorance, Increase in Ring/Shoe/Hat Size, Palpitations, Polydipsia, Polyphagia, Polyuria, Other Past Patient History - Past Medical History & Family History Past Medical History?: Yes - Past Social History Smoking Status: Never Smoked - CARDIAC Hx Hypercholesterolemia: Yes Hx Hypertension: Yes Hx Peripheral Edema: Yes - PULMONARY Hx Respiratory Disorders: No - NEUROLOGICAL Hx Neurological Disorder: No - HEENT Hx HEENT Problems: Yes Hx Cataracts: Yes Other/Comment: wears glasses, retinal hemorrhage 05/2014 - RENAL Hx Chronic Kidney Disease: No - ENDOCRINE/METABOLIC Hx Endocrine Disorders: Yes Hx Diabetes Mellitus Type 2: Yes - INTEGUMENTARY Hx Dermatological Problems: No - MUSCULOSKELETAL/RHEUMATOLOGICAL Hx Fractures: No - GASTROINTESTINAL Hx Gastrointestinal Disorders: No Hx Gastroesophageal Reflux: No - GENITOURINARY/GYNECOLOGICAL Hx Genitourinary Disorders: No - PSYCHIATRIC Hx Psychophysiologic Disorder: No Hx Emotional Abuse: No Hx Physical Abuse: No Hx Substance Use: No - SURGICAL HISTORY Hx Coronary Stent: Yes (x 4 ) - ANESTHESIA Hx Anesthesia: Yes Hx Anesthesia Reactions: No Hx Malignant Hyperthermia: No Has any member of the family had a problem w/ anesthesia?: No Meds Allergies/Adverse Reactions: Allergies Allergy/AdvReac Type Severity Reaction Status Date / Time No Known Allergies Allergy Verified 07/25/18 13:54 - Medications Medications: Current Medications Acetaminophen (Tylenol 325mg Tab) 650 mg PO Q6 PRN PRN Reason: Pain, Mild (1-3) Last Admin: 11/13/18 08:25 Dose: 650 mg Aspirin (Aspirin) 325 mg PO DAILY [facility] Last Admin: 11/12/18 09:08 Dose: 325 mg Atorvastatin Calcium (Lipitor) 40 mg PO HS [facility] Last Admin: 11/12/18 21:15 Dose: 40 mg Carvedilol (Coreg) 3.125 mg PO Q12 [facility] Last Admin: 11/13/18 08:30 Dose: 3.125 mg Clopidogrel Bisulfate (Plavix) 75 mg PO DAILY [facility] Last Admin: 11/13/18 08:34 Dose: 75 mg Ergocalciferol (Drisdol 50,000 Intl Units Cap) 1 cap PO SAT [facility] Home Med (Cu/Se/Vit A/Vit C/Vit E/Zinc [Ocuvite]) 1 tab PO DAILY [facility] Last Admin: 11/13/18 08:31 Dose: 1 tab Home Med (Empagliflozin/Metformin Hcl [Synjardy Xr 12.5-1,000 Mg Tab]) 1 tab PO BID [facility] Last Admin: 11/13/18 08:31 Dose: 1 tab Home Med (Insulin Degludec/Liraglutide [Xultophy 100 Unit-3.6mg/Ml Pen]) 38 units SQ HS [facility] Home Med (Multivit-Min/Fa/Lycopen/Lutein [Centrum Silver Tablet]) 1 each PO DAILY [facility] Last Admin: 11/13/18 08:34 Dose: 1 each Home Med (Propylene Glycol/Peg 400 [Systane 0.3-0.4% Eye Drops]) 1 drop BOTHEYES DAILY [facility] Last Admin: 11/13/18 08:35 Dose: 1 drop Vancomycin HCl 1 gm/ Sodium (Chloride) 250 mls @ 166.667 mls/hr IVPB Q12H [facility]; Protocol Piperacillin Sod/Tazobactam (Sod 3.375 gm/ Sodium Chloride) 100 mls @ 100 mls/hr IVPB Q6 [facility]; Protocol Lisinopril (Zestril) 5 mg PO DAILY [facility] Last Admin: 11/13/18 08:35 Dose: 5 mg Ihxrh-3-Oztp Ethyl Esters (Lovaza) 2 gm PO HS [facility] Last Admin: 11/12/18 21:16 Dose: 2 gm Tramadol HCl (Ultram) 50 mg PO Q6 PRN PRN Reason: Pain, moderate (4-7) Physical Exam - Constitutional Appears: Non-toxic, Chronically Ill - Head Exam Head Exam: NORMOCEPHALIC - Eye Exam Eye Exam: absent: Scleral icterus - ENT Exam ENT Exam: Mucous Membranes Dry - Neck Exam Neck exam: Negative for: Lymphadenopathy - Respiratory Exam Respiratory Exam: Decreased Breath Sounds, Prolonged Expiratory Phase, Rhonchi - Cardiovascular Exam Cardiovascular Exam: REGULAR RHYTHM, +S1, +S2 - GI/Abdominal Exam GI & Abdominal Exam: Diminished Bowel Sounds, Soft. absent: Tenderness - Rectal Exam Rectal Exam: Deferred - Exam Exam: NORMAL INSPECTION - Extremities Exam Extremities exam: Negative for: calf tenderness Additional comments: right BKA left foot with 4th and 5th digits amputated ulcer lateral malleolus ankle cellulitis ; left ankle pulses diminished - n/p Results - Vital Signs Recent Vital Signs: Last Vital Signs Temp 97.2 F L 11/13/18 08:49 Pulse 95 H 11/13/18 08:49 Resp 20 11/13/18 08:49 BP 129/74 11/13/18 08:49 Pulse Ox 95 11/13/18 08:49 - Labs Result Diagrams: 11/13/18 10:08 11/11/18 13:15 Labs: Laboratory Results - last 24 hr 11/12/18 11/12/18 11/12/18 11:21 16:09 21:43 WBC RBC Hgb Hct MCV MCH MCHC RDW Plt Count MPV Neut % (Auto) Lymph % (Auto) [place] % (Auto) Eos % (Auto) Baso % (Auto) Neut # (Auto) Lymph # (Auto) [place] # (Auto) Eos # (Auto) Baso # (Auto) POC Glucose (mg/dL) 246 H 269 H 221 H Vancomycin Trough 11/13/18 11/13/18 11/13/18 05:05 05:16 10:08 WBC 10.8 RBC 5.10 Hgb 13.6 Hct 42.8 MCV 84.0 MCH 26.7 L MCHC 31.8 L RDW 14.8 H Plt Count 200 MPV 9.8 Neut % (Auto) 78.2 H Lymph % (Auto) 8.2 L [place] % (Auto) 9.5 Eos % (Auto) 3.8 Baso % (Auto) 0.3 Neut # (Auto) 8.4 H Lymph # (Auto) 0.9 L [place] # (Auto) 1.0 H Eos # (Auto) 0.4 Baso # (Auto) 0.0 POC Glucose (mg/dL) 226 H Vancomycin Trough 6.4 11/13/18 11:04 WBC RBC Hgb Hct MCV MCH MCHC RDW Plt Count MPV Neut % (Auto) Lymph % (Auto) [place] % (Auto) Eos % (Auto) Baso % (Auto) Neut # (Auto) Lymph # (Auto) [place] # (Auto) Eos # (Auto) Baso # (Auto) POC Glucose (mg/dL) 290 H Vancomycin Trough Assessment & Plan (1) Cellulitis Status: Acute (2) Diabetic foot ulcer Status: Acute - Assessment and Plan (Free Text) Assessment: r/o OM left ankle cultures + for MSSA consider vascular eval await MRI for debridement will need assisted IV antibiotics 6-8 weeks likely
[2018-11-13] MEDS: Piperacillin/Tazobact 3.375 GM in Sodium Chloride 0.9% 100 ML IVPB SCH ×2 (17:21→22:37)
[2018-11-13] MEDS: Omega-3-Acid Ethyl Esters 1 GM Cap PO SCH (22:37)
[2018-11-13] MEDS: LIRAGLUTIDE SQ SCH (22:38)
[2018-11-13] MEDS: [UNRECOGNIZED DRUG - OTHER] SQ SCH (22:38)
[2018-11-13] MEDS: INSULIN DEGLUDEC SQ SCH (22:38)
--- NOTE | 2018-11-14 02:51 | CP.PCM.PN ---
Subjective - Date & Time of Evaluation Date of Evaluation: 11/13/18 Time of Evaluation: 08:30 - Subjective Subjective: Pt seen and assessed at bedside. Currently being treated for infected left ankle ulcer. Pt previously had a wound vac on affected wound, which he states was not working properly and led to the worsening of the infection. Wound cultures revealed staph aureus; pt is being treated with Zosyn and Vancomycin. Review of Systems - Review of Systems Review of Systems: left ankle ulcer Objective - Vital Signs/Intake and Output Vital Signs (last 24 hours): Temp Pulse Resp BP Pulse Ox 97.4 F L 87 18 112/64 95 11/14/18 01:28 11/14/18 01:28 11/14/18 01:28 11/14/18 01:28 11/14/18 01:28 - Medications Medications: Current Medications Acetaminophen (Tylenol 325mg Tab) 650 mg PO Q6 PRN PRN Reason: Pain, Mild (1-3) Last Admin: 11/13/18 08:25 Dose: 650 mg Aspirin (Aspirin) 325 mg PO DAILY [facility] Last Admin: 11/13/18 11:42 Dose: 325 mg Atorvastatin Calcium (Lipitor) 40 mg PO HS [facility] Last Admin: 11/13/18 22:37 Dose: 40 mg Carvedilol (Coreg) 3.125 mg PO Q12 [facility] Last Admin: 11/13/18 22:37 Dose: 3.125 mg Clopidogrel Bisulfate (Plavix) 75 mg PO DAILY [facility] Last Admin: 11/13/18 08:34 Dose: 75 mg Ergocalciferol (Drisdol 50,000 Intl Units Cap) 1 cap PO SAT [facility] Home Med (Cu/Se/Vit A/Vit C/Vit E/Zinc [Ocuvite]) 1 tab PO DAILY [facility] Last Admin: 11/13/18 08:31 Dose: 1 tab Home Med (Empagliflozin/Metformin Hcl [Synjardy Xr 12.5-1,000 Mg Tab]) 1 tab PO BID [facility] Last Admin: 11/13/18 17:21 Dose: 1 tab Home Med (Insulin Degludec/Liraglutide [Xultophy 100 Unit-3.6mg/Ml Pen]) 38 units SQ HS [facility] Last Admin: 11/13/18 22:38 Dose: 38 units Home Med (Multivit-Min/Fa/Lycopen/Lutein [Centrum Silver Tablet]) 1 each PO DAILY [facility] Last Admin: 11/13/18 08:34 Dose: 1 each Home Med (Propylene Glycol/Peg 400 [Systane 0.3-0.4% Eye Drops]) 1 drop BOTHEYES DAILY [facility] Last Admin: 11/13/18 08:35 Dose: 1 drop Vancomycin HCl 1 gm/ Sodium (Chloride) 250 mls @ 166.667 mls/hr IVPB Q12H [facility]; Protocol Last Admin: 11/13/18 22:36 Dose: 166.667 mls/hr Piperacillin Sod/Tazobactam (Sod 3.375 gm/ Sodium Chloride) 100 mls @ 100 mls/hr IVPB Q6 [facility]; Protocol Last Admin: 11/13/18 22:37 Dose: 100 mls/hr Lisinopril (Zestril) 5 mg PO DAILY [facility] Last Admin: 11/13/18 08:35 Dose: 5 mg Hhjwg-3-Vzjt Ethyl Esters (Lovaza) 2 gm PO HS [facility] Last Admin: 11/13/18 22:37 Dose: 2 gm Tramadol HCl (Ultram) 50 mg PO Q6 PRN PRN Reason: Pain, moderate (4-7) Last Admin: 11/13/18 22:35 Dose: 50 mg - Labs Labs: 11/13/18 10:08 11/11/18 13:15 - Constitutional Appears: Well - Head Exam Head Exam: NORMOCEPHALIC - Eye Exam Eye Exam: PERRL - ENT Exam ENT Exam: Mucous Membranes Moist - Neck Exam Neck Exam: Full ROM - Respiratory Exam Respiratory Exam: Clear to Ausculation Bilateral - Cardiovascular Exam Cardiovascular Exam: REGULAR RHYTHM, +S1, +S2 - GI/Abdominal Exam GI & Abdominal Exam: Soft - Extremities Exam Additional comments: Right BKA - Back Exam Back Exam: NORMAL INSPECTION - Neurological Exam Neurological Exam: Alert, Awake, Oriented x3 - Psychiatric Exam Psychiatric exam: Normal Mood - Skin Additional comments: left ankle diabetic foot ulcer Assessment and Plan (1) Diabetic foot ulcer Assessment & Plan: Assessment/Impression/Major Problems Now: 1.) Infected foot ulcer -Wound culture showed staph aureus -Infectious disease consult appreciated. -currently on Zosyn And vancomycin IVPB. -wound dressings done by podiatry. -monitor for s/s infection. -Pain uncontrolled by Tylenol, added on Ultram 50 mg. -strict glycemic control. Status: Acute
[2018-11-14] MEDS: Piperacillin/Tazobact 3.375 GM in Sodium Chloride 0.9% 100 ML IVPB SCH ×4 (04:46→21:10)
--- NOTE | 2018-11-14 08:34 | CP.PCM.PN ---
Subjective - Date & Time of Evaluation Date of Evaluation: 11/14/18 Time of Evaluation: 08:34 - Subjective Subjective: Podiatry Progres Note: Dr. Deluna 68 year old male patient seen and evaluated for L ankle ulceration and cellulitis. Patient AAOx3 and in NAD. Patient is aware of plan for surgery tomorrow for L ankle ulcer debridement. He states that his pain is more controlled today and his pain decreases when his foot is in the dependent position. Denies N/V/F/SOB/CP. Objective - Vital Signs/Intake and Output Vital Signs (last 24 hours): Temp Pulse Resp BP Pulse Ox 97.7 F 87 18 125/77 93 L 11/14/18 05:00 11/14/18 05:00 11/14/18 05:00 11/14/18 05:00 11/14/18 05:00 - Medications Medications: Current Medications Acetaminophen (Tylenol 325mg Tab) 650 mg PO Q6 PRN PRN Reason: Pain, Mild (1-3) Last Admin: 11/13/18 08:25 Dose: 650 mg Aspirin (Aspirin) 325 mg PO DAILY [facility] Last Admin: 11/13/18 11:42 Dose: 325 mg Atorvastatin Calcium (Lipitor) 40 mg PO HS [facility] Last Admin: 11/13/18 22:37 Dose: 40 mg Carvedilol (Coreg) 3.125 mg PO Q12 [facility] Last Admin: 11/13/18 22:37 Dose: 3.125 mg Clopidogrel Bisulfate (Plavix) 75 mg PO DAILY [facility] Last Admin: 11/13/18 08:34 Dose: 75 mg Ergocalciferol (Drisdol 50,000 Intl Units Cap) 1 cap PO SAT [facility] Home Med (Cu/Se/Vit A/Vit C/Vit E/Zinc [Ocuvite]) 1 tab PO DAILY [facility] Last Admin: 11/13/18 08:31 Dose: 1 tab Home Med (Empagliflozin/Metformin Hcl [Synjardy Xr 12.5-1,000 Mg Tab]) 1 tab PO BID [facility] Last Admin: 11/13/18 17:21 Dose: 1 tab Home Med (Insulin Degludec/Liraglutide [Xultophy 100 Unit-3.6mg/Ml Pen]) 38 units SQ HS [facility] Last Admin: 11/13/18 22:38 Dose: 38 units Home Med (Multivit-Min/Fa/Lycopen/Lutein [Centrum Silver Tablet]) 1 each PO DAILY [facility] Last Admin: 11/13/18 08:34 Dose: 1 each Home Med (Propylene Glycol/Peg 400 [Systane 0.3-0.4% Eye Drops]) 1 drop BOTHEYES DAILY [facility] Last Admin: 11/13/18 08:35 Dose: 1 drop Vancomycin HCl 1 gm/ Sodium (Chloride) 250 mls @ 166.667 mls/hr IVPB Q12H [facility]; Protocol Last Admin: 11/13/18 22:36 Dose: 166.667 mls/hr Piperacillin Sod/Tazobactam (Sod 3.375 gm/ Sodium Chloride) 100 mls @ 100 mls/hr IVPB Q6 [facility]; Protocol Last Admin: 11/14/18 04:46 Dose: 100 mls/hr Lisinopril (Zestril) 5 mg PO DAILY [facility] Last Admin: 11/13/18 08:35 Dose: 5 mg Suabd-5-Ccky Ethyl Esters (Lovaza) 2 gm PO HS [facility] Last Admin: 11/13/18 22:37 Dose: 2 gm Tramadol HCl (Ultram) 50 mg PO Q6 PRN PRN Reason: Pain, moderate (4-7) Last Admin: 11/14/18 05:51 Dose: 50 mg - Labs Labs: 11/13/18 10:08 11/11/18 13:15 - Constitutional Appears: Non-toxic, No Acute Distress - Head Exam Head Exam: ATRAUMATIC, NORMOCEPHALIC - Extremities Exam Additional comments: Vascular: DP/PT 1/4, CFT < 3seconds, TG warm to touch to [place]-wound area, + 1 edema noted perimalleolar region Ortho: Tenderness to palpation of malleolar site, R BKA, MMT 4/5, no pain with calf compression Neuro: Gross and protective sensation diminished Derm: Ulceration appreciated to lateral malleolus, measuring approximately 3cm x2cm x .4cm, with fibrous wound base and macerated wound border. Mild serous drainage appreciated, no purulence, no malodor. Cellulitis appreciated to L anterior aspect of inferior 1/3 of leg extending to ankle joint and laterally to ulceration; resolving. No tunneling, no tracking, no probe to bone. - Psychiatric Exam Psychiatric exam: Normal Affect, Normal Mood Assessment and Plan - Assessment and Plan (Free Text) Assessment: 68 year old male patient seen and evaluated for L ankle ulceration with cellulitis secondary to PAD and diabetes; cellulitis resolving Plan: Patient seen and evaluated with all questions and concerns addressed Labs, vitals, chart reviewed; afebrile, WBC trending down Local wound care to L ankle ulceration; betadine, DSD L ankle x-ray taken; soft tissue swelling without acute articular or osseous abnormality Wound cx taken; staph aureus C/w with pain control Per Dr. Deluna- patient has had extensive vascular workup with unsuccessful intervention ID reccs per Dr. Anderson Plan for OR Sunday at 1pm for wound debridement with Dr. Deluna NPO past midnight Will continue to follow
[2018-11-14] MEDS: Patient's Own Med (Cu/Se/Vit A/Vit C/Vit E/Zinc [Ocuvite] 1 TAB) PO SCH (09:07)
[2018-11-14] MEDS: EMPAGLIFLOZIN PO SCH ×2 (09:07→17:30)
[2018-11-14] MEDS: METFORMIN HCL PO SCH ×2 (09:07→17:30)
[2018-11-14] MEDS: [UNRECOGNIZED DRUG - OTHER] PO SCH (09:08)
[2018-11-14] MEDS: MULTIVIT MIN PO SCH (09:08)
[2018-11-14] MEDS: LYCOPEN PO SCH (09:08)
[2018-11-14] MEDS: LUTEIN PO SCH (09:08)
[2018-11-14] MEDS: PEG BOTHEYES SCH (09:09)
[2018-11-14] MEDS: PROPYLENE GLYCOL BOTHEYES SCH (09:09)
--- NOTE | 2018-11-14 12:29 | CP.PCM.CON ---
History of Present Illness - History of Present Illness History of Present Illness: I was asked to evaluate patient by Dr Hutton patient seen 11/14/18 [id number] Patient is a 68 yea rold male with HTN hypercholesterolemia DM CAD R BKA who presents with daibetic foot ulcer. He requires debridement. he denies chest pain or dyspnea. he has undergone outpatient workup and LV function is normal by echcardiogram. The patinet as multiple severe tibial occlusion swhich are not revascularizable form endovascular standpoint. Review of Systems - Constitutional Constitutional: absent: As Per HPI, Anorexia, Chills, Daytime Sleepiness, Excessive Sweating, Fatigue, Fever, Frequent Falls, Headache, Increased Appetite, Lethargy, Malaise, Night Sweats, Snoring, Sleep Apnea, Weight Gain, Weight Loss, Weakness, Other - EENT Eyes: absent: As Per HPI, Blind Spots, Blurred Vision, Change in Vision, Decreased Night Vision, Diplopia, Discharge, Dry Eye, Exophthalmos, Floaters, Irritation, Itchy Eyes, Loss of Peripheral Vision, Pain, Photophobia, Requires Corrective Lenses, Sees Flashes, Spots in Vision, Tunnel Vision, Other Visual Disturbances, Loss of Vision, Other Ears: absent: As Per HPI, Decreased Hearing, Ear Discharge, Ear Pain, Tinnitus, Abnormal Hearing, Disequilibrium, Dizziness, Other Nose/Mouth/Throat: absent: As Per HPI, Epistaxis, Nasal Congestion, Nasal Discharge, Nasal Obstruction, Nasal Trauma, Nose Pain, Post Nasal Drip, Sinus Pain, Sinus Pressure, Bleeding Gums, Change in Voice, Dental Pain, Dry Mouth, Dysphagia, Halitosis, Hoarsness, Lip Swelling, Mouth Lesions, Mouth Pain, Odynophagia, Sore Throat, Throat Swelling, Tongue Swelling, Facial Pain, Neck Pain, Neck Mass, Other - Cardiovascular Cardiovascular: absent: As Per HPI, Acrocyanosis, Chest Pain, Chest Pain at Rest, Chest Pain with Activity, Claudication, Diaphoresis, Dyspnea, Dyspnea on Exertion, Edema, Irregular Heart Rhythm, Pain Radiating to Arm/Neck/Jaw, Leg Edema, Leg Ulcers, Lightheadedness, Orthopnea, Palpitations, Paroxysmal Nocturnal Dyspnea, Pedal Edema, Radiating Pain, Rapid Heart Rate, Slow Heart Rate, Syncope, Other - Respiratory Respiratory: absent: As Per HPI, Cough, Dyspnea, Hemoptysis, Dyspnea on Exertion, Wheezing, Snoring, Stridor, Pain on Inspiration, Chest Congestion, Excessive Mucous Production, Change in Mucous Color, Pain with Coughing, Other - Gastrointestinal Gastrointestinal: absent: As Per HPI, Abdominal Pain, Belching, Bloating, Change in Bowel Habits, Change in Stool Character, Coffee Ground Emesis, Constipation, Cramping, Diarrhea, Dyspepsia, Dysphagia, Early Satiety, Excessive Flatus, Fecal Incontinence, Heartburn, Hematemesis, Hematochezia, Loose Stools, Melena, Nausea, Odynophagia, Temesmus, Vomiting, Other - Genitourinary Genitourinary: absent: As Per HPI, Change in Urinary Stream, Difficulty Urinating, Dysuria, Flank Pain, Hematuria, Pyuria, Nocturia, Urinary Incontinence, Urinary Frequency, Urinary Hesitance, Urinary Urgency, Voiding Freq/Small Amts, Freq UTI, Hx Renal/Bladder Calculi, Hx /Renal Surgery, Bladder Distension, Other - Musculoskeletal Musculoskeletal: Radiating Pain into Limb - Integumentary Integumentary: absent: As Per HPI, Acne, Alopecia, Bleeding Lesions, Change in Hair, Change in Nails, Change in Pigmentation, Changing Lesions, Dry Skin, Erythema, Furuncle, Hirsutism, Lesions, New Lesions, Non-Healing Lesions, Photosensitivity, Pruritus, Rash, Skin Pain, Skin Ulcer, Sores, Striae, Swelling, Unusual Bruising, Wounds, Jaundice, Other - Neurological Neurological: absent: As Per HPI, Abnormal Gait, Abnormal Hearing, Abnormal Movements, Abnormal Speech, Behavioral Changes, Burning Sensations, Confusion, Convulsions, Disequilibrium, Dizziness, Numbness, Focal Weakness, Frequent Falls, Headaches, Lack of Coordination, Loss of Vision, Memory Loss, Paresthesias, Radicular Pain, Restless Legs, Sensory Deficit, Syncope, Tingling, Tremor, Vertigo, Weakness, Other Visual Disturbances, Other - Psychiatric Psychiatric: absent: As Per HPI, Abnormal Sleep Pattern, Anhedonia, Anxiety, Auditory Hallucinations, Behavioral Changes, Change in Appetite, Change in Libido, Confusion, Depression, Difficulty Concentrating, Hallucinations, Homicidal Ideation, Hopelessness, Irritability, Memory Loss, Mood Swings, Panic Attacks, Paranoia, Suicidal Ideation, Visual Hallucinations, Tactile Hallucina tions, Other - Endocrine Endocrine: absent: As Per HPI, Change in Body Appearance, Change in Libido, Cold Intolorance, Deepening of Voice, Excessive Sweating, Fatigue, Flushing, Heat Intolorance, Increase in Ring/Shoe/Hat Size, Palpitations, Polydipsia, Polypha dariusz, Polyuria, Other - Hematologic/Lymphatic Hematologic: absent: As Per HPI, Easy Bleeding, Easy Bruising, Lymphadenopathy, Other Past Patient History - Past Medical History & Family History Past Medical History?: Yes - Past Social History Smoking Status: Never Smoked - CARDIAC Hx Hypercholesterolemia: Yes Hx Hypertension: Yes Hx Peripheral Edema: Yes - PULMONARY Hx Respiratory Disorders: No - NEUROLOGICAL Hx Neurological Disorder: No - HEENT Hx HEENT Problems: Yes Hx Cataracts: Yes Other/Comment: wears glasses, retinal hemorrhage 05/2014 - RENAL Hx Chronic Kidney Disease: No - ENDOCRINE/METABOLIC Hx Endocrine Disorders: Yes Hx Diabetes Mellitus Type 2: Yes - INTEGUMENTARY Hx Dermatological Problems: No - MUSCULOSKELETAL/RHEUMATOLOGICAL Hx Fractures: No - GASTROINTESTINAL Hx Gastrointestinal Disorders: No Hx Gastroesophageal Reflux: No - GENITOURINARY/GYNECOLOGICAL Hx Genitourinary Disorders: No - PSYCHIATRIC Hx Psychophysiologic Disorder: No Hx Emotional Abuse: No Hx Physical Abuse: No Hx Substance Use: No - SURGICAL HISTORY Hx Coronary Stent: Yes (x 4 ) - ANESTHESIA Hx Anesthesia: Yes Hx Anesthesia Reactions: No Hx Malignant Hyperthermia: No Has any member of the family had a problem w/ anesthesia?: No Meds Allergies/Adverse Reactions: Allergies Allergy/AdvReac Type Severity Reaction Status Date / Time No Known Allergies Allergy Verified 07/25/18 13:54 - Medications Medications: Current Medications Acetaminophen (Tylenol 325mg Tab) 650 mg PO Q6 PRN PRN Reason: Pain, Mild (1-3) Last Admin: 11/13/18 08:25 Dose: 650 mg Aspirin (Aspirin) 325 mg PO DAILY [facility] Last Admin: 11/13/18 11:42 Dose: 325 mg Atorvastatin Calcium (Lipitor) 40 mg PO HS [facility] Last Admin: 11/13/18 22:37 Dose: 40 mg Carvedilol (Coreg) 3.125 mg PO Q12 [facility] Last Admin: 11/14/18 09:05 Dose: 3.125 mg Clopidogrel Bisulfate (Plavix) 75 mg PO DAILY [facility] Last Admin: 11/13/18 08:34 Dose: 75 mg Ergocalciferol (Drisdol 50,000 Intl Units Cap) 1 cap PO SAT [facility] Home Med (Cu/Se/Vit A/Vit C/Vit E/Zinc [Ocuvite]) 1 tab PO DAILY [facility] Last Admin: 11/14/18 09:07 Dose: 1 tab Home Med (Empagliflozin/Metformin Hcl [Synjardy Xr 12.5-1,000 Mg Tab]) 1 tab PO BID [facility] Last Admin: 11/14/18 09:07 Dose: 1 tab Home Med (Insulin Degludec/Liraglutide [Xultophy 100 Unit-3.6mg/Ml Pen]) 38 units SQ HS [facility] Last Admin: 11/13/18 22:38 Dose: 38 units Home Med (Multivit-Min/Fa/Lycopen/Lutein [Centrum Silver Tablet]) 1 each PO DAILY [facility] Last Admin: 11/14/18 09:08 Dose: 1 each Home Med (Propylene Glycol/Peg 400 [Systane 0.3-0.4% Eye Drops]) 1 drop BOTHEYES DAILY [facility] Last Admin: 11/14/18 09:09 Dose: 1 drop Vancomycin HCl 1 gm/ Sodium (Chloride) 250 mls @ 166.667 mls/hr IVPB Q12H [facility]; Protocol Last Admin: 11/14/18 10:38 Dose: 166.667 mls/hr Piperacillin Sod/Tazobactam (Sod 3.375 gm/ Sodium Chloride) 100 mls @ 100 mls/hr IVPB Q6 [facility]; Protocol Last Admin: 11/14/18 09:10 Dose: 100 mls/hr Lisinopril (Zestril) 5 mg PO DAILY [facility] Last Admin: 11/14/18 09:09 Dose: 5 mg Prhci-3-Dphg Ethyl Esters (Lovaza) 2 gm PO HS [facility] Last Admin: 11/13/18 22:37 Dose: 2 gm Tramadol HCl (Ultram) 50 mg PO Q6 PRN PRN Reason: Pain, moderate (4-7) Last Admin: 11/14/18 05:51 Dose: 50 mg Physical Exam - Constitutional Appears: Non-toxic - Head Exam Head Exam: NORMAL INSPECTION - Eye Exam Eye Exam: Normal appearance - ENT Exam ENT Exam: Mucous Membranes Moist - Neck Exam Neck exam: Positive for: Full Rom - Respiratory Exam Respiratory Exam: NORMAL BREATHING PATTERN - Cardiovascular Exam Cardiovascular Exam: REGULAR RHYTHM - GI/Abdominal Exam GI & Abdominal Exam: Normal Bowel Sounds - Rectal Exam Rectal Exam: Deferred - Extremities Exam Extremities exam: Negative for: pedal edema - Back Exam Back exam: NORMAL INSPECTION - Neurological Exam Neurological exam: Alert, Oriented x3 - Psychiatric Exam Psychiatric exam: Normal Affect - Skin Skin Exam: Normal Color Results - Vital Signs Recent Vital Signs: Last Vital Signs Temp 97.7 F 11/14/18 08:44 Pulse 91 H 11/14/18 09:09 Resp 20 11/14/18 08:44 BP 126/81 11/14/18 09:09 Pulse Ox 94 L 11/14/18 08:44 - Labs Result Diagrams: 11/13/18 10:08 11/11/18 13:15 Labs: Laboratory Results - last 24 hr 11/13/18 11/13/18 11/14/18 16:27 22:25 05:39 POC Glucose (mg/dL) 215 H 181 H 155 H 11/14/18 11:03 POC Glucose (mg/dL) 238 H - EKG Data EKG Interpreted by: Myself EKG shows normal: Sinus rhythm Assessment & Plan (1) Diabetic foot ulcer Assessment and Plan: patient requires cleaning of diabetic foot ulcer. He is scheduled for OR april ridement. There is no cardiovascular contraindication. The patient is medically optimzied. Status: Acute (2) CAD (coronary artery disease) Assessment and Plan: stable. no current angina Status: Chronic Priority: Medium (3) Diabetes Assessment and Plan: blood glucose control Status: Chronic (4) Hypertension Assessment and Plan: blood pressure control Status: Chronic
--- NOTE | 2018-11-14 17:45 | CP.PCM.PN ---
Subjective - Date & Time of Evaluation Date of Evaluation: 11/14/18 Time of Evaluation: 11:00 - Subjective Subjective: patient seen and examined at bedside. Interim events noted No complaints offered at this time denies cp/sob/fever/chills. available diagnostic data reviewed Review of Systems All systems: reviewed and no additional remarkable complaints except mentioned above Objective Vital Signs Stable - Constitutional Appears: Non-toxic, No Acute Distress - Head Exam Head Exam: NORMAL INSPECTION - Eye Exam Eye Exam: Normal appearance - Respiratory Exam Respiratory Exam: NORMAL BREATHING PATTERN - Cardiovascular Exam Cardiovascular Exam: +S1, +S2 - GI/Abdominal Exam GI & Abdominal Exam: Soft - Neurological Exam Neurological Exam: Alert, Awake - Psychiatric Exam Psychiatric exam: Normal Affect, Normal Mood - Skin Skin Exam: Normal Color, Warm Assessment and Plan monitor vitals monitor labs Cont meds Cont tx consultants appreciated input for OR tomorrow, debridement pending cardiac clearance rest of plan as ordered Assessment and Plan (1) Diabetic foot ulcer Status: Acute
[2018-11-14] MEDS: Omega-3-Acid Ethyl Esters 1 GM Cap PO SCH (21:11)
[2018-11-14] MEDS: LIRAGLUTIDE SQ SCH (22:15)
[2018-11-14] MEDS: INSULIN DEGLUDEC SQ SCH (22:15)
[2018-11-14] MEDS: [UNRECOGNIZED DRUG - OTHER] SQ SCH (22:15)
[2018-11-15] MEDS: Piperacillin/Tazobact 3.375 GM in Sodium Chloride 0.9% 100 ML IVPB SCH ×4 (05:08→21:09)
[2018-11-15 05:19] LABS: HEMOGLOBIN 13.2 g/dL (12.0-18.0); MEAN CELL VOLUME 81.9 fl (80.0-94.0); MEAN CORPUSCULAR HGB CONC 32.9 g/dL (33.0-37.0); RBC 4.89 Mil/uL (4.40-5.90); RED CELL DISTRIBUTION WIDTH 14.3 % (11.5-14.5); WHITE BLOOD COUNT 7.4 K/uL (4.8-10.8)
[2018-11-15 05:40] LABS: ALB/GLOB RATIO 1.1 (1.0-2.1); ALBUMIN 3.8 g/dL (3.5-5.0); ALT/SGPT 30 U/L (21-72); AST/SGOT 25 U/L (17-59); BLOOD UREA NITROGEN 21 mg/dl (9-20); CALCIUM 9.4 mg/dL (8.4-10.2); GFR NON-AFRICAN AMERICAN > 60
[2018-11-15 05:53] LABS: INR 1.1; PROTHROMBIN TIME 12.7 Seconds (9.8-13.1)
--- NOTE | 2018-11-15 08:02 | CP.PCM.PN ---
Subjective - Date & Time of Evaluation Date of Evaluation: 11/15/18 Time of Evaluation: 07:58 - Subjective Subjective: Podiatry Progres Note: Dr. Deluna 68 year old male patient seen and evaluated for L ankle ulceration with cellulitis. Patient AAOx3 and in NAD. Patient is aware of plan for surgery today and the post operative course. Patient states that he has been NPO past midnight. He admits to having anesthesia in the past and denies any adverse reactions. Denies N/V/F/SOB/CP. Objective - Vital Signs/Intake and Output Vital Signs (last 24 hours): Temp Pulse Resp BP Pulse Ox 97.3 F L 87 18 133/81 95 11/15/18 05:53 11/15/18 05:53 11/15/18 05:53 11/15/18 05:53 11/15/18 05:53 - Medications Medications: Current Medications Acetaminophen (Tylenol 325mg Tab) 650 mg PO Q6 PRN PRN Reason: Pain, Mild (1-3) Last Admin: 11/13/18 08:25 Dose: 650 mg Aspirin (Aspirin) 325 mg PO DAILY [facility] Last Admin: 11/13/18 11:42 Dose: 325 mg Atorvastatin Calcium (Lipitor) 40 mg PO HS [facility] Last Admin: 11/14/18 21:11 Dose: 40 mg Carvedilol (Coreg) 3.125 mg PO Q12 [facility] Last Admin: 11/14/18 21:11 Dose: 3.125 mg Clopidogrel Bisulfate (Plavix) 75 mg PO DAILY [facility] Last Admin: 11/13/18 08:34 Dose: 75 mg Ergocalciferol (Drisdol 50,000 Intl Units Cap) 1 cap PO SAT [facility] Home Med (Cu/Se/Vit A/Vit C/Vit E/Zinc [Ocuvite]) 1 tab PO DAILY [facility] Last Admin: 11/14/18 09:07 Dose: 1 tab Home Med (Empagliflozin/Metformin Hcl [Synjardy Xr 12.5-1,000 Mg Tab]) 1 tab PO BID [facility] Last Admin: 11/14/18 17:30 Dose: 1 tab Home Med (Insulin Degludec/Liraglutide [Xultophy 100 Unit-3.6mg/Ml Pen]) 38 units SQ HS [facility] Last Admin: 11/14/18 22:15 Dose: 38 units Home Med (Multivit-Min/Fa/Lycopen/Lutein [Centrum Silver Tablet]) 1 each PO DAILY [facility] Last Admin: 11/14/18 09:08 Dose: 1 each Home Med (Propylene Glycol/Peg 400 [Systane 0.3-0.4% Eye Drops]) 1 drop BOTHEYES DAILY [facility] Last Admin: 11/14/18 09:09 Dose: 1 drop Vancomycin HCl 1 gm/ Sodium (Chloride) 250 mls @ 166.667 mls/hr IVPB Q12H [facility]; Protocol Last Admin: 11/14/18 22:14 Dose: 166.667 mls/hr Piperacillin Sod/Tazobactam (Sod 3.375 gm/ Sodium Chloride) 100 mls @ 100 mls/hr IVPB Q6 [facility]; Protocol Last Admin: 11/15/18 05:08 Dose: 100 mls/hr Lisinopril (Zestril) 5 mg PO DAILY [facility] Last Admin: 11/14/18 09:09 Dose: 5 mg Aaehf-6-Mjyd Ethyl Esters (Lovaza) 2 gm PO HS [facility] Last Admin: 11/14/18 21:11 Dose: 2 gm Tramadol HCl (Ultram) 50 mg PO Q6 PRN PRN Reason: Pain, moderate (4-7) Last Admin: 11/15/18 02:31 Dose: 50 mg - Labs Labs: 11/15/18 04:25 11/15/18 04:25 PT 12.7 Seconds (9.8-13.1) 11/15/18 04:25 INR 1.1 11/15/18 04:25 - Constitutional Appears: Non-toxic, No Acute Distress - Head Exam Head Exam: ATRAUMATIC, NORMOCEPHALIC - Extremities Exam Additional comments: Dressing left C/D/I NVS intact CFT > 3 seconds - Neurological Exam Neurological Exam: Alert, Awake, Oriented x3 - Psychiatric Exam Psychiatric exam: Normal Affect, Normal Mood Assessment and Plan - Assessment and Plan (Free Text) Assessment: 68 year old male patient seen and evaluated for L ankle ulceration with cellulitis secondary to PAD and diabetes; cellulitis resolving Plan: Patient seen and evaluated with all questions and concerns addressed Labs, vitals, chart reviewed; afebrile, WBC trending down Local wound care to L ankle ulceration; betadine, DSD L ankle x-ray taken; soft tissue swelling without acute articular or osseous abnormality Wound cx taken; staph aureus C/w with pain control Per Dr. Deluna- patient has had extensive vascular workup with unsuccessful intervention ID reccs per Dr. Anderson Plan for OR today for wound debridement with Dr. Deluna Will continue to follow
[2018-11-15] MEDS: EMPAGLIFLOZIN PO SCH ×2 (08:58→16:04)
[2018-11-15] MEDS: METFORMIN HCL PO SCH ×2 (08:58→16:04)
[2018-11-15] MEDS: Patient's Own Med (Cu/Se/Vit A/Vit C/Vit E/Zinc [Ocuvite] 1 TAB) PO SCH (08:58)
[2018-11-15] MEDS: LYCOPEN PO SCH (08:59)
[2018-11-15] MEDS: LUTEIN PO SCH (08:59)
[2018-11-15] MEDS: [UNRECOGNIZED DRUG - OTHER] PO SCH (08:59)
[2018-11-15] MEDS: MULTIVIT MIN PO SCH (08:59)
[2018-11-15] MEDS: PROPYLENE GLYCOL BOTHEYES SCH (08:59)
[2018-11-15] MEDS: PEG BOTHEYES SCH (08:59)
[2018-11-15] MEDS ORDERED: Bupivacaine 0.5% Inj(30mL) ONE (12:35)
[2018-11-15] MEDS ORDERED: Mineral Oil Light Sterile 25 ml ONE (12:35)
[2018-11-15] MEDS ORDERED: Lidocaine 1% Inj (20ml) ONE (12:35)
[2018-11-15] MEDS ORDERED: Propofol 10 mg/ml Inj (20 ML) ONE (13:18)
--- NOTE | 2018-11-15 13:18 | CP.PCM.PN ---
Subjective - Date & Time of Evaluation Date of Evaluation: 11/15/18 Time of Evaluation: 07:00 - Subjective Subjective: 68 year old male patient with PMHx of DM, seen and evaluated for L ankle ulceration. Patient states that he has had the ulcer for over two and a half years, however it has not fully healed. He reports chills over the past day and states that his ulceration has caused him significant pain. Referred for ID evl for antibiotic management Started on empiric Vanco/Zosyn Objective - Vital Signs/Intake and Output Vital Signs (last 24 hours): Temp Pulse Resp BP Pulse Ox 97.3 F L 87 18 133/81 95 11/15/18 13:00 11/15/18 13:00 11/15/18 13:00 11/15/18 13:00 11/15/18 13:00 - Medications Medications: Current Medications Acetaminophen (Tylenol 325mg Tab) 650 mg PO Q6 PRN PRN Reason: Pain, Mild (1-3) Last Admin: 11/13/18 08:25 Dose: 650 mg Aspirin (Aspirin) 325 mg PO DAILY [facility] Last Admin: 11/15/18 08:58 Dose: Not Given Atorvastatin Calcium (Lipitor) 40 mg PO HS [facility] Last Admin: 11/14/18 21:11 Dose: 40 mg Carvedilol (Coreg) 3.125 mg PO Q12 [facility] Last Admin: 11/15/18 08:58 Dose: 3.125 mg Clopidogrel Bisulfate (Plavix) 75 mg PO DAILY [facility] Last Admin: 11/15/18 08:59 Dose: Not Given Ergocalciferol (Drisdol 50,000 Intl Units Cap) 1 cap PO SAT [facility] Home Med (Cu/Se/Vit A/Vit C/Vit E/Zinc [Ocuvite]) 1 tab PO DAILY [facility] Last Admin: 11/15/18 08:58 Dose: Not Given Home Med (Empagliflozin/Metformin Hcl [Synjardy Xr 12.5-1,000 Mg Tab]) 1 tab PO BID [facility] Last Admin: 11/15/18 08:58 Dose: Not Given Home Med (Insulin Degludec/Liraglutide [Xultophy 100 Unit-3.6mg/Ml Pen]) 38 units SQ HS [facility] Last Admin: 11/14/18 22:15 Dose: 38 units Home Med (Multivit-Min/Fa/Lycopen/Lutein [Centrum Silver Tablet]) 1 each PO DAILY [facility] Last Admin: 11/15/18 08:59 Dose: Not Given Home Med (Propylene Glycol/Peg 400 [Systane 0.3-0.4% Eye Drops]) 1 drop BOTHEYES DAILY [facility] Last Admin: 11/15/18 08:59 Dose: 1 drop Vancomycin HCl 1 gm/ Sodium (Chloride) 250 mls @ 166.667 mls/hr IVPB Q12H [facility]; Protocol Last Admin: 11/15/18 10:37 Dose: 166.667 mls/hr Piperacillin Sod/Tazobactam (Sod 3.375 gm/ Sodium Chloride) 100 mls @ 100 mls/hr IVPB Q6 [facility]; Protocol Last Admin: 11/15/18 09:00 Dose: 100 mls/hr Lisinopril (Zestril) 5 mg PO DAILY [facility] Last Admin: 11/15/18 08:59 Dose: Not Given Lngau-7-Hymy Ethyl Esters (Lovaza) 2 gm PO HS [facility] Last Admin: 11/14/18 21:11 Dose: 2 gm Tramadol HCl (Ultram) 50 mg PO Q6 PRN PRN Reason: Pain, moderate (4-7) Last Admin: 11/15/18 02:31 Dose: 50 mg - Labs Labs: 11/15/18 04:25 11/15/18 04:25 PT 12.7 Seconds (9.8-13.1) 11/15/18 04:25 INR 1.1 11/15/18 04:25 - Constitutional Appears: Non-toxic, Chronically Ill - Head Exam Head Exam: NORMOCEPHALIC - Eye Exam Eye Exam: absent: Scleral icterus - ENT Exam ENT Exam: Mucous Membranes Dry - Neck Exam Neck Exam: absent: Lymphadenopathy - Respiratory Exam Respiratory Exam: Decreased Breath Sounds - Cardiovascular Exam Cardiovascular Exam: REGULAR RHYTHM - GI/Abdominal Exam GI & Abdominal Exam: Distended - Rectal Exam Rectal Exam: Deferred - Exam Exam: NORMAL INSPECTION - Extremities Exam Extremities Exam: Pedal Edema, Tenderness Additional comments: right bka Assessment and Plan (1) Cellulitis Status: Acute (2) Diabetic foot ulcer Status: Acute - Assessment and Plan (Free Text) Assessment: possible OM PVD consider vascular evaal, MRI cont IV antibiotics wound care Plan: for or DEBRIDEMENT PROGNOSIS GUARDED
[2018-11-15] MEDS ORDERED: Midazolam 2 MG/2 ML VIAL ONE (13:19)
[2018-11-15] MEDS ORDERED: Sodium Chloride 0.9% 1,000 ML IV ONE (13:20)
[2018-11-15] MEDS ORDERED: HYDROmorphone 0.5 mg/0.5 ml ISec IVP PRN (14:05)
--- NOTE | 2018-11-15 14:05 | PCM.SURG1 ---
Surgeon's Initial Post Op Note - Surgeon's Notes Surgeon: Dr. Deluna Online Communications Manager: Dr. Carey Type of Anesthesia: IV Sedation, Local Pre-Operative Diagnosis: L ankle ulceration with cellulitis Operative Findings: See dictation. I: Pre-op 6cc 1% lidocaine, 0.5% marcaine. M: 1/4 inch iodoform packing Post-Operative Diagnosis: Same Operation Performed: L ankle wound I&D with debridement of all non-viable soft tissue with the use of Versajet Specimen/Specimens Removed: None Estimated Blood Loss: EBL {In ML}: 5 Blood Products Given: N/A Post-Op Condition: Good Date of Surgery/Procedure: 11/15/18 Time of Surgery/Procedure: 14:05
[2018-11-15] MEDS ORDERED: Oxycodone/Acetaminophen 5/325 mg Tab PO PRN (14:36)
[2018-11-15] MEDS: Oxycodone/Acetaminophen 5/325 mg Tab PO PRN ×2 (15:39→21:04)
[2018-11-15] MEDS: Omega-3-Acid Ethyl Esters 1 GM Cap PO SCH (21:10)
[2018-11-15] MEDS: INSULIN DEGLUDEC SQ SCH (22:20)
[2018-11-15] MEDS: LIRAGLUTIDE SQ SCH (22:20)
[2018-11-15] MEDS: [UNRECOGNIZED DRUG - OTHER] SQ SCH (22:20)
[2018-11-16] MEDS: Oxycodone/Acetaminophen 5/325 mg Tab PO PRN (03:24)
[2018-11-16] MEDS: Piperacillin/Tazobact 3.375 GM in Sodium Chloride 0.9% 100 ML IVPB SCH ×4 (03:25→22:22)
--- NOTE | 2018-11-16 08:25 | CP.PCM.PN ---
Subjective - Date & Time of Evaluation Date of Evaluation: 11/16/18 Time of Evaluation: 08:25 - Subjective Subjective: Podiatry Progres Note: Dr. Deluna 68 year old male patient seen and evaluated for left ankle ulcer, 1 day s/p debridement of ulceration. Patient AAOx3 and in NAD. Patient states he had mild to moderate pain overnight. Says dressings have remained dry and clean since his surgery. Denies tingling or numbness in the lower extremity. Denies N/V/F/SOB/CP. Objective - Vital Signs/Intake and Output Vital Signs (last 24 hours): Temp Pulse Resp BP Pulse Ox 97.6 F 80 18 131/78 95 11/16/18 04:57 11/16/18 04:57 11/16/18 04:57 11/16/18 04:57 11/16/18 04:57 - Medications Medications: Current Medications Acetaminophen (Tylenol 325mg Tab) 650 mg PO Q6 PRN PRN Reason: Pain, Mild (1-3) Last Admin: 11/13/18 08:25 Dose: 650 mg Aspirin (Aspirin) 325 mg PO DAILY [facility] Last Admin: 11/15/18 08:58 Dose: Not Given Atorvastatin Calcium (Lipitor) 40 mg PO HS [facility] Last Admin: 11/15/18 21:10 Dose: 40 mg Carvedilol (Coreg) 3.125 mg PO Q12 [facility] Last Admin: 11/15/18 21:10 Dose: 3.125 mg Clopidogrel Bisulfate (Plavix) 75 mg PO DAILY [facility] Last Admin: 11/15/18 08:59 Dose: Not Given Ergocalciferol (Drisdol 50,000 Intl Units Cap) 1 cap PO SAT [facility] Home Med (Cu/Se/Vit A/Vit C/Vit E/Zinc [Ocuvite]) 1 tab PO DAILY [facility] Last Admin: 11/15/18 08:58 Dose: Not Given Home Med (Empagliflozin/Metformin Hcl [Synjardy Xr 12.5-1,000 Mg Tab]) 1 tab PO BID [facility] Last Admin: 11/15/18 16:04 Dose: 1 tab Home Med (Insulin Degludec/Liraglutide [Xultophy 100 Unit-3.6mg/Ml Pen]) 38 units SQ HS [facility] Last Admin: 11/15/18 22:20 Dose: 38 units Home Med (Multivit-Min/Fa/Lycopen/Lutein [Centrum Silver Tablet]) 1 each PO DAILY [facility] Last Admin: 11/15/18 08:59 Dose: Not Given Home Med (Propylene Glycol/Peg 400 [Systane 0.3-0.4% Eye Drops]) 1 drop BOTHEYES DAILY [facility] Last Admin: 11/15/18 08:59 Dose: 1 drop Hydromorphone HCl (Dilaudid) 0.5 mg IVP Q15M PRN PRN Reason: Pain, moderate (4-7) Vancomycin HCl 1 gm/ Sodium (Chloride) 250 mls @ 166.667 mls/hr IVPB Q12H [facility]; Protocol Last Admin: 11/15/18 22:20 Dose: 166.667 mls/hr Piperacillin Sod/Tazobactam (Sod 3.375 gm/ Sodium Chloride) 100 mls @ 100 mls/hr IVPB Q6 [facility]; Protocol Last Admin: 11/16/18 03:25 Dose: 100 mls/hr Lisinopril (Zestril) 5 mg PO DAILY [facility] Last Admin: 11/15/18 08:59 Dose: Not Given Rccvu-3-Vrpm Ethyl Esters (Lovaza) 2 gm PO HS [facility] Last Admin: 11/15/18 21:10 Dose: 2 gm Oxycodone/Acetaminophen (Percocet 5/325 Mg Tab) 1 tab PO Q4 PRN PRN Reason: Pain, moderate (4-7) Stop: 11/18/18 14:37 Oxycodone/Acetaminophen (Percocet 5/325 Mg Tab) 2 tab PO Q6 PRN PRN Reason: Pain, severe (8-10) Stop: 11/18/18 14:37 Last Admin: 11/16/18 03:24 Dose: 2 tab Tramadol HCl (Ultram) 50 mg PO Q6 PRN PRN Reason: Pain, moderate (4-7) Last Admin: 11/15/18 02:31 Dose: 50 mg - Labs Labs: 11/15/18 04:25 11/15/18 04:25 PT 12.7 Seconds (9.8-13.1) 11/15/18 04:25 INR 1.1 11/15/18 04:25 - Constitutional Appears: Well, Non-toxic, No Acute Distress - Extremities Exam Additional comments: Right BKA noted Left lower extremity focused exam: Derm: Open ulceration appreciated to lateral malleolus with exposed tendon noted. Ulceration measures approximately 3cm x2cm x .4cm, with fibrous wound base and macerated wound border. 1/4" iodoform packing noted to be in place - saturated in sanguinous drainage upon removal. No active drainage noted, no malodor, no purulence, no fluctuance. Vascular: DP/PT 1/4. CFT < 3seconds. Temperature gradient is warm to touch to [place]-wound area. + 1 edema noted perimalleolar region Ortho: Tenderness to palpation of malleolar site. MMT 4/5. No pain with calf compression Neuro: Gross and protective sensation diminished - Neurological Exam Neurological Exam: Alert, Oriented x3 - Psychiatric Exam Psychiatric exam: Normal Affect, Normal Mood Assessment and Plan - Assessment and Plan (Free Text) Assessment: 68 year old diabetic male who is 1 day s/p debridement of left ankle ulcer 2' diabetes with peripheral vascular disease Plan: Patient seen and evaluated at bedside Discussed plan with Dr. Deluna Local wound care to L ankle ulceration performed with saline cleanse and application of xeroform, DSD L ankle x-ray taken; soft tissue swelling without acute articular or osseous abnormality Wound cx taken: Staph aureus C/w with pain control per primary team Per Dr. Deluna- patient has had extensive vascular workup with unsuccessful intervention ID recs per Dr. Anderson, appreciate consultation Patient may be full WB with use of surgical shoe to L foot Will continue to follow
[2018-11-16] MEDS ORDERED: Ergocalciferol 50,000 Intl Units Cap PO SCH (09:00)
[2018-11-16] MEDS: PROPYLENE GLYCOL BOTHEYES SCH (09:23)
[2018-11-16] MEDS: PEG BOTHEYES SCH (09:23)
[2018-11-16] MEDS: EMPAGLIFLOZIN PO SCH ×3 (09:24→17:33)
[2018-11-16] MEDS: METFORMIN HCL PO SCH ×3 (09:24→17:33)
[2018-11-16] MEDS: LUTEIN PO SCH (09:24)
[2018-11-16] MEDS: [UNRECOGNIZED DRUG - OTHER] PO SCH (09:24)
[2018-11-16] MEDS: MULTIVIT MIN PO SCH (09:24)
[2018-11-16] MEDS: LYCOPEN PO SCH (09:24)
[2018-11-16] MEDS: Patient's Own Med (Cu/Se/Vit A/Vit C/Vit E/Zinc [Ocuvite] 1 TAB) PO SCH (09:25)
[2018-11-16] MEDS: LIRAGLUTIDE SQ SCH (22:02)
[2018-11-16] MEDS: [UNRECOGNIZED DRUG - OTHER] SQ SCH (22:02)
[2018-11-16] MEDS: Omega-3-Acid Ethyl Esters 1 GM Cap PO SCH (22:02)
[2018-11-16] MEDS: INSULIN DEGLUDEC SQ SCH (22:02)
[2018-11-17] MEDS: Oxycodone/Acetaminophen 5/325 mg Tab PO PRN (00:51)
[2018-11-17] MEDS: Piperacillin/Tazobact 3.375 GM in Sodium Chloride 0.9% 100 ML IVPB SCH ×4 (04:06→21:12)
[2018-11-17] MEDS: PROPYLENE GLYCOL BOTHEYES SCH ×2 (08:21→08:24)
[2018-11-17] MEDS: PEG BOTHEYES SCH ×2 (08:21→08:24)
[2018-11-17] MEDS: MULTIVIT MIN PO SCH (08:22)
[2018-11-17] MEDS: Patient's Own Med (Cu/Se/Vit A/Vit C/Vit E/Zinc [Ocuvite] 1 TAB) PO SCH (08:22)
[2018-11-17] MEDS: LUTEIN PO SCH (08:22)
[2018-11-17] MEDS: [UNRECOGNIZED DRUG - OTHER] PO SCH (08:22)
[2018-11-17] MEDS: LYCOPEN PO SCH (08:22)
[2018-11-17] MEDS: EMPAGLIFLOZIN PO SCH ×2 (08:23→17:35)
[2018-11-17] MEDS: METFORMIN HCL PO SCH ×2 (08:23→17:35)
--- NOTE | 2018-11-17 09:51 | CP.PCM.PN ---
Subjective - Date & Time of Evaluation Date of Evaluation: 11/17/18 Time of Evaluation: 09:51 - Subjective Subjective: Podiatry Progres Note: Dr. Deluna 68 year old male patient seen and evaluated for left ankle ulcer, 2 days s/p debridement of ulceration. Patient AAOx3 and in NAD. Patient states his pain has decreased since yesterday and is well controlled. Reports walking with physical therapy with use of surgical shoe. Denies tingling or numbness in the lower extremity. Denies N/V/F/SOB/CP. Objective - Vital Signs/Intake and Output Vital Signs (last 24 hours): Temp Pulse Resp BP Pulse Ox 97.5 F L 81 18 115/78 95 11/17/18 09:00 11/17/18 09:00 11/17/18 09:00 11/17/18 09:00 11/17/18 09:00 - Medications Medications: Current Medications Acetaminophen (Tylenol 325mg Tab) 650 mg PO Q6 PRN PRN Reason: Pain, Mild (1-3) Last Admin: 11/13/18 08:25 Dose: 650 mg Aspirin (Aspirin) 325 mg PO DAILY [facility] Last Admin: 11/16/18 09:57 Dose: 325 mg Atorvastatin Calcium (Lipitor) 40 mg PO HS [facility] Last Admin: 11/16/18 22:02 Dose: 40 mg Carvedilol (Coreg) 3.125 mg PO Q12 [facility] Last Admin: 11/17/18 08:24 Dose: 3.125 mg Clopidogrel Bisulfate (Plavix) 75 mg PO DAILY [facility] Last Admin: 11/17/18 08:22 Dose: 75 mg Docusate Sodium (Colace) 100 mg PO BID [facility] Last Admin: 11/17/18 08:23 Dose: 100 mg Ergocalciferol (Drisdol 50,000 Intl Units Cap) 1 cap PO SAT [facility] Last Admin: 11/16/18 09:23 Dose: 1 cap Home Med (Cu/Se/Vit A/Vit C/Vit E/Zinc [Ocuvite]) 1 tab PO DAILY [facility] Last Admin: 11/17/18 08:22 Dose: 1 tab Home Med (Empagliflozin/Metformin Hcl [Synjardy Xr 12.5-1,000 Mg Tab]) 1 tab PO BID [facility] Last Admin: 11/17/18 08:23 Dose: 1 tab Home Med (Insulin Degludec/Liraglutide [Xultophy 100 Unit-3.6mg/Ml Pen]) 38 units SQ HS [facility] Last Admin: 11/16/18 22:02 Dose: 38 units Home Med (Multivit-Min/Fa/Lycopen/Lutein [Centrum Silver Tablet]) 1 each PO DAILY [facility] Last Admin: 11/17/18 08:22 Dose: 1 each Home Med (Propylene Glycol/Peg 400 [Systane 0.3-0.4% Eye Drops]) 1 drop BOTHEYES DAILY [facility] Last Admin: 11/17/18 08:24 Dose: 1 drop Hydromorphone HCl (Dilaudid) 0.5 mg IVP Q15M PRN PRN Reason: Pain, moderate (4-7) Vancomycin HCl 1 gm/ Sodium (Chloride) 250 mls @ 166.667 mls/hr IVPB Q12H [facility]; Protocol Last Admin: 11/16/18 22:24 Dose: 166.667 mls/hr Piperacillin Sod/Tazobactam (Sod 3.375 gm/ Sodium Chloride) 100 mls @ 100 mls/hr IVPB Q6 [facility]; Protocol Last Admin: 11/17/18 04:06 Dose: 100 mls/hr Lisinopril (Zestril) 5 mg PO DAILY [facility] Last Admin: 11/17/18 08:25 Dose: 5 mg Lumow-1-Ffqi Ethyl Esters (Lovaza) 2 gm PO HS [facility] Last Admin: 11/16/18 22:02 Dose: 2 gm Oxycodone/Acetaminophen (Percocet 5/325 Mg Tab) 1 tab PO Q4 PRN PRN Reason: Pain, moderate (4-7) Stop: 11/18/18 14:37 Oxycodone/Acetaminophen (Percocet 5/325 Mg Tab) 2 tab PO Q6 PRN PRN Reason: Pain, severe (8-10) Stop: 11/18/18 14:37 Last Admin: 11/17/18 00:51 Dose: 2 tab - Labs Labs: 11/15/18 04:25 11/15/18 04:25 PT 12.7 Seconds (9.8-13.1) 11/15/18 04:25 INR 1.1 11/15/18 04:25 - Constitutional Appears: Well, Non-toxic, No Acute Distress - Extremities Exam Additional comments: Right BKA noted Left lower extremity focused exam: Derm: Open ulceration appreciated to lateral malleolus with exposed tendon noted. Ulceration measures approximately 3cm x2cm x .4cm, with fibrous wound base and macerated wound border. No active drainage noted, no malodor, no purulence, no fluctuance. Vascular: DP/PT 1/4. CFT < 3seconds. Temperature gradient is warm to touch to [place]-wound area. + 1 edema noted perimalleolar region Ortho: Tenderness to palpation of malleolar site. MMT 4/5. No pain with calf compression Neuro: Gross and protective sensation diminished - Neurological Exam Neurological Exam: Alert, Awake, Oriented x3 - Psychiatric Exam Psychiatric exam: Normal Affect, Normal Mood Assessment and Plan - Assessment and Plan (Free Text) Assessment: 68 year old diabetic male who is 2 days s/p debridement of left ankle ulcer 2' diabetes with peripheral vascular disease Plan: Patient seen and evaluated at bedside Discussed patient's treatment plan with Dr. Deluna Local wound care to L ankle ulceration performed with saline cleanse and application of xeroform, DSD L ankle x-ray taken; soft tissue swelling without acute articular or osseous abnormality Wound cx taken: Staph aureus C/w with pain control per primary team Per Dr. Deluna- patient has had extensive vascular workup with unsuccessful intervention ID recs per Dr. Anderson, appreciate consultation Patient may be full WB with use of surgical shoe to L foot Will continue to follow
--- NOTE | 2018-11-17 14:30 | CP.PCM.PN ---
Subjective - Date & Time of Evaluation Date of Evaluation: 11/17/18 Time of Evaluation: 08:00 - Subjective Subjective: no new cultures s/p debridement left ankle lateral malleolus ulcer- cultures showing MSSA no MRI imaging done Plain films negative Has known PVD Objective - Vital Signs/Intake and Output Vital Signs (last 24 hours): Temp Pulse Resp BP Pulse Ox 97.2 F L 91 H 20 134/81 97 11/17/18 12:20 11/17/18 12:20 11/17/18 12:20 11/17/18 12:20 11/17/18 12:20 - Medications Medications: Current Medications Acetaminophen (Tylenol 325mg Tab) 650 mg PO Q6 PRN PRN Reason: Pain, Mild (1-3) Last Admin: 11/13/18 08:25 Dose: 650 mg Aspirin (Aspirin) 325 mg PO DAILY [facility] Last Admin: 11/17/18 10:27 Dose: 325 mg Atorvastatin Calcium (Lipitor) 40 mg PO HS [facility] Last Admin: 11/16/18 22:02 Dose: 40 mg Carvedilol (Coreg) 3.125 mg PO Q12 [facility] Last Admin: 11/17/18 08:24 Dose: 3.125 mg Clopidogrel Bisulfate (Plavix) 75 mg PO DAILY [facility] Last Admin: 11/17/18 08:22 Dose: 75 mg Docusate Sodium (Colace) 100 mg PO BID [facility] Last Admin: 11/17/18 08:23 Dose: 100 mg Ergocalciferol (Drisdol 50,000 Intl Units Cap) 1 cap PO SAT [facility] Last Admin: 11/16/18 09:23 Dose: 1 cap Home Med (Cu/Se/Vit A/Vit C/Vit E/Zinc [Ocuvite]) 1 tab PO DAILY [facility] Last Admin: 11/17/18 08:22 Dose: 1 tab Home Med (Empagliflozin/Metformin Hcl [Synjardy Xr 12.5-1,000 Mg Tab]) 1 tab PO BID [facility] Last Admin: 11/17/18 08:23 Dose: 1 tab Home Med (Insulin Degludec/Liraglutide [Xultophy 100 Unit-3.6mg/Ml Pen]) 38 units SQ HS [facility] Last Admin: 11/16/18 22:02 Dose: 38 units Home Med (Multivit-Min/Fa/Lycopen/Lutein [Centrum Silver Tablet]) 1 each PO DAILY [facility] Last Admin: 11/17/18 08:22 Dose: 1 each Home Med (Propylene Glycol/Peg 400 [Systane 0.3-0.4% Eye Drops]) 1 drop BOTHEYES DAILY [facility] Last Admin: 11/17/18 08:24 Dose: 1 drop Hydromorphone HCl (Dilaudid) 0.5 mg IVP Q15M PRN PRN Reason: Pain, moderate (4-7) Vancomycin HCl 1 gm/ Sodium (Chloride) 250 mls @ 166.667 mls/hr IVPB Q12H [facility]; Protocol Last Admin: 11/17/18 11:40 Dose: 166.667 mls/hr Piperacillin Sod/Tazobactam (Sod 3.375 gm/ Sodium Chloride) 100 mls @ 100 mls/ hr IVPB Q6 [facility]; Protocol Last Admin: 11/17/18 10:27 Dose: 100 mls/hr Lisinopril (Zestril) 5 mg PO DAILY [facility] Last Admin: 11/17/18 08:25 Dose: 5 mg Dxoqo-1-Jfpm Ethyl Esters (Lovaza) 2 gm PO HS [facility] Last Admin: 11/16/18 22:02 Dose: 2 gm Oxycodone/Acetaminophen (Percocet 5/325 Mg Tab) 1 tab PO Q4 PRN PRN Reason: Pain, moderate (4-7) Stop: 11/18/18 14:37 Oxycodone/Acetaminophen (Percocet 5/325 Mg Tab) 2 tab PO Q6 PRN PRN Reason: Pain, severe (8-10) Stop: 11/18/18 14:37 Last Admin: 11/17/18 00:51 Dose: 2 tab - Labs Labs: 11/15/18 04:25 11/15/18 04:25 PT 12.7 Seconds (9.8-13.1) 11/15/18 04:25 INR 1.1 11/15/18 04:25 - Constitutional Appears: Non-toxic - Head Exam Head Exam: NORMOCEPHALIC - Eye Exam Eye Exam: absent: Scleral icterus - ENT Exam ENT Exam: Mucous Membranes Dry - Neck Exam Neck Exam: absent: Lymphadenopathy - Respiratory Exam Respiratory Exam: Decreased Breath Sounds, Clear to Ausculation Bilateral - Cardiovascular Exam Cardiovascular Exam: REGULAR RHYTHM, +S1, +S2 - GI/Abdominal Exam GI & Abdominal Exam: Distended, Soft. absent: Tenderness - Rectal Exam Rectal Exam: Deferred - Exam Exam: NORMAL INSPECTION - Extremities Exam Extremities Exam: absent: Calf Tenderness, Normal Inspection Additional comments: right BKA Left foot wound dressing dry - Back Exam Back Exam: absent: CVA tenderness (L), CVA tenderness (R), paraspinal tenderness - Neurological Exam Neurological Exam: Alert, Awake, Normal Gait, Oriented x3 - Psychiatric Exam Psychiatric exam: Depressed - Skin Skin Exam: Dry, Intact Assessment and Plan (1) Cellulitis Status: Acute (2) Diabetic foot ulcer Status: Acute - Assessment and Plan (Free Text) Assessment: no new cultures s/p debridement left ankle lateral malleolus ulcer- cultures showing MSSA no MRI imaging done Plain films negative Has known hx PVD await OR cultures Possible d/c on IV antibiotics with wound vac
[2018-11-17] MEDS: Omega-3-Acid Ethyl Esters 1 GM Cap PO SCH (21:12)
[2018-11-17] MEDS: INSULIN DEGLUDEC SQ SCH (22:54)
[2018-11-17] MEDS: [UNRECOGNIZED DRUG - OTHER] SQ SCH (22:54)
[2018-11-17] MEDS: LIRAGLUTIDE SQ SCH (22:54)
[2018-11-18] MEDS: Piperacillin/Tazobact 3.375 GM in Sodium Chloride 0.9% 100 ML IVPB SCH ×4 (03:30→22:09)
[2018-11-18] MEDS: Oxycodone/Acetaminophen 5/325 mg Tab PO PRN (04:44)
--- NOTE | 2018-11-18 07:47 | CP.PCM.PN ---
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 Patient AAOx3 and in NAD. Patient states his pain has decreased since yesterday and is well controlled. Reports walking with physical therapy with use of surgical shoe. Denies tingling or numbness in the lower extremity. Denies N/V/F/SOB/CP. Objective - Vital Signs/Intake and Output Vital Signs (last 24 hours): Temp Pulse Resp BP Pulse Ox 97.4 F L 82 16 135/80 95 11/18/18 05:00 11/18/18 05:00 11/18/18 05:00 11/18/18 05:00 11/18/18 05:00 - Medications Medications: Current Medications Acetaminophen (Tylenol 325mg Tab) 650 mg PO Q6 PRN PRN Reason: Pain, Mild (1-3) Last Admin: 11/13/18 08:25 Dose: 650 mg Aspirin (Aspirin) 325 mg PO DAILY [facility] Last Admin: 11/17/18 10:27 Dose: 325 mg Atorvastatin Calcium (Lipitor) 40 mg PO HS [facility] Last Admin: 11/17/18 21:13 Dose: 40 mg Carvedilol (Coreg) 3.125 mg PO Q12 [facility] Last Admin: 11/17/18 21:13 Dose: 3.125 mg Clopidogrel Bisulfate (Plavix) 75 mg PO DAILY [facility] Last Admin: 11/17/18 08:22 Dose: 75 mg Docusate Sodium (Colace) 100 mg PO BID [facility] Last Admin: 11/17/18 18:36 Dose: 100 mg Ergocalciferol (Drisdol 50,000 Intl Units Cap) 1 cap PO SAT [facility] Last Admin: 11/16/18 09:23 Dose: 1 cap Home Med (Cu/Se/Vit A/Vit C/Vit E/Zinc [Ocuvite]) 1 tab PO DAILY [facility] Last Admin: 11/17/18 08:22 Dose: 1 tab Home Med (Empagliflozin/Metformin Hcl [Synjardy Xr 12.5-1,000 Mg Tab]) 1 tab PO BID [facility] Last Admin: 11/17/18 17:35 Dose: 1 tab Home Med (Insulin Degludec/Liraglutide [Xultophy 100 Unit-3.6mg/Ml Pen]) 38 units SQ HS [facility] Last Admin: 11/17/18 22:54 Dose: Not Given Home Med (Multivit-Min/Fa/Lycopen/Lutein [Centrum Silver Tablet]) 1 each PO DAILY [facility] Last Admin: 11/17/18 08:22 Dose: 1 each Home Med (Propylene Glycol/Peg 400 [Systane 0.3-0.4% Eye Drops]) 1 drop BOTHEYES DAILY [facility] Last Admin: 11/17/18 08:24 Dose: 1 drop Hydromorphone HCl (Dilaudid) 0.5 mg IVP Q15M PRN PRN Reason: Pain, moderate (4-7) Vancomycin HCl 1 gm/ Sodium (Chloride) 250 mls @ 166.667 mls/hr IVPB Q12H [facility]; Protocol Last Admin: 11/17/18 22:55 Dose: 166.667 mls/hr Piperacillin Sod/Tazobactam (Sod 3.375 gm/ Sodium Chloride) 100 mls @ 100 mls/hr IVPB Q6 [facility]; Protocol Last Admin: 11/18/18 03:30 Dose: 100 mls/hr Lisinopril (Zestril) 5 mg PO DAILY [facility] Last Admin: 11/17/18 08:25 Dose: 5 mg [id number]-7-[id number] Ethyl Esters (Lovaza) 2 gm PO HS [facility] Last Admin: 11/17/18 21:12 Dose: 2 gm Oxycodone/Acetaminophen (Percocet 5/325 Mg Tab) 1 tab PO Q4 PRN PRN Reason: Pain, moderate (4-7) Stop: 11/18/18 14:37 Oxycodone/Acetaminophen (Percocet 5/325 Mg Tab) 2 tab PO Q6 PRN PRN Reason: Pain, severe (8-10) Stop: 11/18/18 14:37 Last Admin: 11/18/18 04:44 Dose: 2 tab - Labs Labs: 11/15/18 04:25 11/15/18 04:25 PT 12.7 Seconds (9.8-13.1) 11/15/18 04:25 INR 1.1 11/15/18 04:25 - Constitutional Appears: Well, Non-toxic, No Acute Distress - Head Exam Head Exam: ATRAUMATIC, NORMOCEPHALIC - Eye Exam Eye Exam: Normal appearance Pupil Exam: NORMAL ACCOMODATION - ENT Exam ENT Exam: Mucous Membranes Moist - Extremities Exam Additional comments: Right BKA noted Left lower extremity focused exam: Derm: Open ulceration appreciated to lateral malleolus with exposed tendon noted. Ulceration measures approximately 3cm x2cm x .4cm, with fibrous wound base and macerated wound border. No active drainage noted, no malodor, no purulence, no fluctuance. Vascular: DP/PT 1/4. CFT < 3seconds. Temperature gradient is warm to touch to [place]-wound area. + 1 edema noted perimalleolar region Ortho: Tenderness to palpation of malleolar site. MMT 4/5. No pain with calf co mpression Neuro: Gross and protective sensation diminished Assessment and Plan - Assessment and Plan (Free Text) Assessment: 68 year old diabetic male 3 days s/p debridement of left ankle ulcer secondary to diabetes with peripheral vascular disease Plan: Patient seen and evaluated at bedside Discussed patient's treatment plan with Dr. Deluna Local wound care to L ankle ulceration performed with saline cleanse and application of xeroform, DSD L ankle x-ray taken; soft tissue swelling without acute articular or osseous abnormality Wound cx taken: Staph aureus C/w with pain control per primary team Per Dr. Deluna- patient has had extensive vascular workup with unsuccessful intervention ID recs per Dr. Anderson, appreciate consultation Patient may be full WB with use of surgical shoe to L foot Will continue to follow
--- NOTE | 2018-11-18 07:48 | CP.PCM.PN ---
Subjective - Date & Time of Evaluation Date of Evaluation: 11/15/18 Time of Evaluation: 08:00 - Subjective Subjective: Patient remains stable For surgery Has no fever. Objective - Vital Signs/Intake and Output Vital Signs (last 24 hours): Temp Pulse Resp BP Pulse Ox 97.4 F L 82 16 135/80 95 11/18/18 05:00 11/18/18 05:00 11/18/18 05:00 11/18/18 05:00 11/18/18 05:00 - Medications Medications: Current Medications Acetaminophen (Tylenol 325mg Tab) 650 mg PO Q6 PRN PRN Reason: Pain, Mild (1-3) Last Admin: 11/13/18 08:25 Dose: 650 mg Aspirin (Aspirin) 325 mg PO DAILY [facility] Last Admin: 11/17/18 10:27 Dose: 325 mg Atorvastatin Calcium (Lipitor) 40 mg PO HS [facility] Last Admin: 11/17/18 21:13 Dose: 40 mg Carvedilol (Coreg) 3.125 mg PO Q12 [facility] Last Admin: 11/17/18 21:13 Dose: 3.125 mg Clopidogrel Bisulfate (Plavix) 75 mg PO DAILY [facility] Last Admin: 11/17/18 08:22 Dose: 75 mg Docusate Sodium (Colace) 100 mg PO BID [facility] Last Admin: 11/17/18 18:36 Dose: 100 mg Ergocalciferol (Drisdol 50,000 Intl Units Cap) 1 cap PO SAT [facility] Last Admin: 11/16/18 09:23 Dose: 1 cap Home Med (Cu/Se/Vit A/Vit C/Vit E/Zinc [Ocuvite]) 1 tab PO DAILY [facility] Last Admin: 11/17/18 08:22 Dose: 1 tab Home Med (Empagliflozin/Metformin Hcl [Synjardy Xr 12.5-1,000 Mg Tab]) 1 tab PO BID [facility] Last Admin: 11/17/18 17:35 Dose: 1 tab Home Med (Insulin Degludec/Liraglutide [Xultophy 100 Unit-3.6mg/Ml Pen]) 38 units SQ HS [facility] Last Admin: 11/17/18 22:54 Dose: Not Given Home Med (Multivit-Min/Fa/Lycopen/Lutein [Centrum Silver Tablet]) 1 each PO DAILY [facility] Last Admin: 11/17/18 08:22 Dose: 1 each Home Med (Propylene Glycol/Peg 400 [Systane 0.3-0.4% Eye Drops]) 1 drop BOTHEYES DAILY [facility] Last Admin: 11/17/18 08:24 Dose: 1 drop Hydromorphone HCl (Dilaudid) 0.5 mg IVP Q15M PRN PRN Reason: Pain, moderate (4-7) Vancomycin HCl 1 gm/ Sodium (Chloride) 250 mls @ 166.667 mls/hr IVPB Q12H [facility]; Protocol Last Admin: 11/17/18 22:55 Dose: 166.667 mls/hr Piperacillin Sod/Tazobactam (Sod 3.375 gm/ Sodium Chloride) 100 mls @ 100 mls/ hr IVPB Q6 [facility]; Protocol Last Admin: 11/18/18 03:30 Dose: 100 mls/hr Lisinopril (Zestril) 5 mg PO DAILY [facility] Last Admin: 11/17/18 08:25 Dose: 5 mg [id number]-[id number] Ethyl Esters (Lovaza) 2 gm PO HS [facility] Last Admin: 11/17/18 21:12 Dose: 2 gm Oxycodone/Acetaminophen (Percocet 5/325 Mg Tab) 1 tab PO Q4 PRN PRN Reason: Pain, moderate (4-7) Stop: 11/18/18 14:37 Oxycodone/Acetaminophen (Percocet 5/325 Mg Tab) 2 tab PO Q6 PRN PRN Reason: Pain, severe (8-10) Stop: 11/18/18 14:37 Last Admin: 11/18/18 04:44 Dose: 2 tab - Labs Labs: 11/15/18 04:25 11/15/18 04:25 PT 12.7 Seconds (9.8-13.1) 11/15/18 04:25 INR 1.1 11/15/18 04:25 - Head Exam Head Exam: NORMAL INSPECTION - Eye Exam Eye Exam: Normal appearance - ENT Exam ENT Exam: Mucous Membranes Moist - Respiratory Exam Respiratory Exam: Clear to Ausculation Bilateral - Cardiovascular Exam Cardiovascular Exam: Tachycardia - GI/Abdominal Exam GI & Abdominal Exam: Normal Bowel Sounds - Neurological Exam Neurological Exam: Awake Assessment and Plan (1) Diabetic foot ulcer Status: Acute (2) Cellulitis Status: Acute (3) Diabetes mellitus type 2 in obese Status: Acute (4) Anemia Status: Chronic (5) CAD (coronary artery disease) Status: Chronic (6) Hypertension Status: Chronic (7) Peripheral vascular disease of extremity Status: Chronic - Assessment and Plan (Free Text) Plan: Cont meds Follow up with ID for IV antibiotics
--- NOTE | 2018-11-18 07:51 | CP.PCM.PN ---
Subjective - Date & Time of Evaluation Date of Evaluation: 11/16/18 Time of Evaluation: 11:00 - Subjective Subjective: Patient is stable post op. Has no fever. Has minimal pain. Objective - Vital Signs/Intake and Output Vital Signs (last 24 hours): Temp Pulse Resp BP Pulse Ox 97.4 F L 82 16 135/80 95 11/18/18 05:00 11/18/18 05:00 11/18/18 05:00 11/18/18 05:00 11/18/18 05:00 - Medications Medications: Current Medications Acetaminophen (Tylenol 325mg Tab) 650 mg PO Q6 PRN PRN Reason: Pain, Mild (1-3) Last Admin: 11/13/18 08:25 Dose: 650 mg Aspirin (Aspirin) 325 mg PO DAILY [facility] Last Admin: 11/17/18 10:27 Dose: 325 mg Atorvastatin Calcium (Lipitor) 40 mg PO HS [facility] Last Admin: 11/17/18 21:13 Dose: 40 mg Carvedilol (Coreg) 3.125 mg PO Q12 [facility] Last Admin: 11/17/18 21:13 Dose: 3.125 mg Clopidogrel Bisulfate (Plavix) 75 mg PO DAILY [facility] Last Admin: 11/17/18 08:22 Dose: 75 mg Docusate Sodium (Colace) 100 mg PO BID [facility] Last Admin: 11/17/18 18:36 Dose: 100 mg Ergocalciferol (Drisdol 50,000 Intl Units Cap) 1 cap PO SAT [facility] Last Admin: 11/16/18 09:23 Dose: 1 cap Home Med (Cu/Se/Vit A/Vit C/Vit E/Zinc [Ocuvite]) 1 tab PO DAILY [facility] Last Admin: 11/17/18 08:22 Dose: 1 tab Home Med (Empagliflozin/Metformin Hcl [Synjardy Xr 12.5-1,000 Mg Tab]) 1 tab PO BID [facility] Last Admin: 11/17/18 17:35 Dose: 1 tab Home Med (Insulin Degludec/Liraglutide [Xultophy 100 Unit-3.6mg/Ml Pen]) 38 units SQ HS [facility] Last Admin: 11/17/18 22:54 Dose: Not Given Home Med (Multivit-Min/Fa/Lycopen/Lutein [Centrum Silver Tablet]) 1 each PO DAILY [facility] Last Admin: 11/17/18 08:22 Dose: 1 each Home Med (Propylene Glycol/Peg 400 [Systane 0.3-0.4% Eye Drops]) 1 drop BOTHEYES DAILY [facility] Last Admin: 11/17/18 08:24 Dose: 1 drop Hydromorphone HCl (Dilaudid) 0.5 mg IVP Q15M PRN PRN Reason: Pain, moderate (4-7) Vancomycin HCl 1 gm/ Sodium (Chloride) 250 mls @ 166.667 mls/hr IVPB Q12H [facility]; Protocol Last Admin: 11/17/18 22:55 Dose: 166.667 mls/hr Piperacillin Sod/Tazobactam (Sod 3.375 gm/ Sodium Chloride) 100 mls @ 100 mls/hr IVPB Q6 [facility]; Protocol Last Admin: 11/18/18 03:30 Dose: 100 mls/hr Lisinopril (Zestril) 5 mg PO DAILY [facility] Last Admin: 11/17/18 08:25 Dose: 5 mg Dsosv-5-Hhnc Ethyl Esters (Lovaza) 2 gm PO HS [facility] Last Admin: 11/17/18 21:12 Dose: 2 gm Oxycodone/Acetaminophen (Percocet 5/325 Mg Tab) 1 tab PO Q4 PRN PRN Reason: Pain, moderate (4-7) Stop: 11/18/18 14:37 Oxycodone/Acetaminophen (Percocet 5/325 Mg Tab) 2 tab PO Q6 PRN PRN Reason: Pain, severe (8-10) Stop: 11/18/18 14:37 Last Admin: 11/18/18 04:44 Dose: 2 tab - Labs Labs: 11/15/18 04:25 11/15/18 04:25 PT 12.7 Seconds (9.8-13.1) 11/15/18 04:25 INR 1.1 11/15/18 04:25 - Head Exam Head Exam: NORMAL INSPECTION - ENT Exam ENT Exam: Mucous Membranes Moist - Respiratory Exam Respiratory Exam: Clear to Ausculation Bilateral - Cardiovascular Exam Cardiovascular Exam: REGULAR RHYTHM - GI/Abdominal Exam GI & Abdominal Exam: Normal Bowel Sounds Assessment and Plan (1) Diabetic foot ulcer Status: Acute (2) Cellulitis Status: Acute (3) Diabetes mellitus type 2 in obese Status: Acute (4) Anemia Status: Chronic (5) CAD (coronary artery disease) Status: Chronic (6) Hypertension Status: Chronic (7) Peripheral vascular disease of extremity Status: Chronic - Assessment and Plan (Free Text) Plan: Cont meds Cont tx Cont PT pain meds arrange for IV
--- NOTE | 2018-11-18 07:54 | CP.PCM.PN ---
Subjective - Date & Time of Evaluation Date of Evaluation: 11/17/18 Time of Evaluation: 10:30 - Subjective Subjective: Patient remains well Has minimal pain On IV antibiotics Objective - Vital Signs/Intake and Output Vital Signs (last 24 hours): Temp Pulse Resp BP Pulse Ox 97.4 F L 82 16 135/80 95 11/18/18 05:00 11/18/18 05:00 11/18/18 05:00 11/18/18 05:00 11/18/18 05:00 - Medications Medications: Current Medications Acetaminophen (Tylenol 325mg Tab) 650 mg PO Q6 PRN PRN Reason: Pain, Mild (1-3) Last Admin: 11/13/18 08:25 Dose: 650 mg Aspirin (Aspirin) 325 mg PO DAILY [facility] Last Admin: 11/17/18 10:27 Dose: 325 mg Atorvastatin Calcium (Lipitor) 40 mg PO HS [facility] Last Admin: 11/17/18 21:13 Dose: 40 mg Carvedilol (Coreg) 3.125 mg PO Q12 [facility] Last Admin: 11/17/18 21:13 Dose: 3.125 mg Clopidogrel Bisulfate (Plavix) 75 mg PO DAILY [facility] Last Admin: 11/17/18 08:22 Dose: 75 mg Docusate Sodium (Colace) 100 mg PO BID [facility] Last Admin: 11/17/18 18:36 Dose: 100 mg Ergocalciferol (Drisdol 50,000 Intl Units Cap) 1 cap PO SAT [facility] Last Admin: 11/16/18 09:23 Dose: 1 cap Home Med (Cu/Se/Vit A/Vit C/Vit E/Zinc [Ocuvite]) 1 tab PO DAILY [facility] Last Admin: 11/17/18 08:22 Dose: 1 tab Home Med (Empagliflozin/Metformin Hcl [Synjardy Xr 12.5-1,000 Mg Tab]) 1 tab PO BID [facility] Last Admin: 11/17/18 17:35 Dose: 1 tab Home Med (Insulin Degludec/Liraglutide [Xultophy 100 Unit-3.6mg/Ml Pen]) 38 units SQ HS [facility] Last Admin: 11/17/18 22:54 Dose: Not Given Home Med (Multivit-Min/Fa/Lycopen/Lutein [Centrum Silver Tablet]) 1 each PO DAILY [facility] Last Admin: 11/17/18 08:22 Dose: 1 each Home Med (Propylene Glycol/Peg 400 [Systane 0.3-0.4% Eye Drops]) 1 drop BOTHEYES DAILY [facility] Last Admin: 11/17/18 08:24 Dose: 1 drop Hydromorphone HCl (Dilaudid) 0.5 mg IVP Q15M PRN PRN Reason: Pain, moderate (4-7) Vancomycin HCl 1 gm/ Sodium (Chloride) 250 mls @ 166.667 mls/hr IVPB Q12H [facility]; Protocol Last Admin: 11/17/18 22:55 Dose: 166.667 mls/hr Piperacillin Sod/Tazobactam (Sod 3.375 gm/ Sodium Chloride) 100 mls @ 100 mls/hr IVPB Q6 [facility]; Protocol Last Admin: 11/18/18 03:30 Dose: 100 mls/hr Lisinopril (Zestril) 5 mg PO DAILY [facility] Last Admin: 11/17/18 08:25 Dose: 5 mg Tgtji-5-Bpbj Ethyl Esters (Lovaza) 2 gm PO HS [facility] Last Admin: 11/17/18 21:12 Dose: 2 gm Oxycodone/Acetaminophen (Percocet 5/325 Mg Tab) 1 tab PO Q4 PRN PRN Reason: Pain, moderate (4-7) Stop: 11/18/18 14:37 Oxycodone/Acetaminophen (Percocet 5/325 Mg Tab) 2 tab PO Q6 PRN PRN Reason: Pain, severe (8-10) Stop: 11/18/18 14:37 Last Admin: 11/18/18 04:44 Dose: 2 tab - Labs Labs: 11/15/18 04:25 11/15/18 04:25 PT 12.7 Seconds (9.8-13.1) 11/15/18 04:25 INR 1.1 11/15/18 04:25 - Head Exam Head Exam: NORMAL INSPECTION - Eye Exam Eye Exam: Normal appearance - ENT Exam ENT Exam: Mucous Membranes Moist - Respiratory Exam Respiratory Exam: Clear to Ausculation Bilateral - Cardiovascular Exam Cardiovascular Exam: REGULAR RHYTHM - GI/Abdominal Exam GI & Abdominal Exam: Soft - Neurological Exam Neurological Exam: Awake, Oriented x3 Assessment and Plan (1) Diabetic foot ulcer Status: Acute (2) Cellulitis Status: Acute (3) Diabetes mellitus type 2 in obese Status: Acute (4) Anemia Status: Chronic (5) CAD (coronary artery disease) Status: Chronic (6) Hypertension Status: Chronic (7) Peripheral vascular disease of extremity Status: Chronic - Assessment and Plan (Free Text) Plan: Cont meds Cont tx Cont PT arrange for iv antibiotics home vs subacute
[2018-11-18] MEDS ORDERED: Lactulose 10 gm/15 ml Syrup PO PRN (08:27)
[2018-11-18] MEDS: [UNRECOGNIZED DRUG - OTHER] PO SCH (08:59)
[2018-11-18] MEDS: LYCOPEN PO SCH (08:59)
[2018-11-18] MEDS: PROPYLENE GLYCOL BOTHEYES SCH (08:59)
[2018-11-18] MEDS: MULTIVIT MIN PO SCH (08:59)
[2018-11-18] MEDS: Patient's Own Med (Cu/Se/Vit A/Vit C/Vit E/Zinc [Ocuvite] 1 TAB) PO SCH ×2 (08:59→09:03)
[2018-11-18] MEDS: LUTEIN PO SCH (08:59)
[2018-11-18] MEDS: PEG BOTHEYES SCH (08:59)
[2018-11-18] MEDS: METFORMIN HCL PO SCH ×2 (09:01→16:39)
[2018-11-18] MEDS: EMPAGLIFLOZIN PO SCH ×2 (09:01→16:39)
[2018-11-18 09:25] LABS: HEMOGLOBIN 13.6 g/dL (12.0-18.0); MEAN CELL VOLUME 81.7 fl (80.0-94.0); MEAN CORPUSCULAR HEMOGLOBIN 26.5 pg (27.0-31.0); MEAN CORPUSCULAR HGB CONC 32.5 g/dL (33.0-37.0); RBC 5.14 Mil/uL (4.40-5.90); RED CELL DISTRIBUTION WIDTH 14.7 % (11.5-14.5); WHITE BLOOD COUNT 7.6 K/uL (4.8-10.8)
[2018-11-18] MEDS: Bisacodyl 5mg EC Tab PO SCH ×3 (09:50→22:10)
[2018-11-18 09:53] LABS: BLOOD UREA NITROGEN 16 mg/dl (9-20); CALCIUM 9.8 mg/dL (8.4-10.2); GFR NON-AFRICAN AMERICAN > 60
--- NOTE | 2018-11-18 21:31 | CP.PCM.PN ---
Subjective - Date & Time of Evaluation Date of Evaluation: 11/18/18 Time of Evaluation: 11:00 Objective - Vital Signs/Intake and Output Vital Signs (last 24 hours): Temp Pulse Resp BP Pulse Ox 98.4 F 83 16 126/74 96 11/18/18 20:11 11/18/18 20:11 11/18/18 20:11 11/18/18 20:11 11/18/18 20:11 Intake and Output: 11/18/18 11/19/18 18:59 06:59 Intake Total 1100 Balance 1100 - Medications Medications: Current Medications Acetaminophen (Tylenol 325mg Tab) 650 mg PO Q6 PRN PRN Reason: Pain, Mild (1-3) Last Admin: 11/13/18 08:25 Dose: 650 mg Aspirin (Aspirin) 325 mg PO DAILY [facility] Last Admin: 11/18/18 09:46 Dose: 325 mg Atorvastatin Calcium (Lipitor) 40 mg PO HS [facility] Last Admin: 11/17/18 21:13 Dose: 40 mg Bisacodyl (Dulcolax) 5 mg PO [facility] Carvedilol (Coreg) 3.125 mg PO Q12 [facility] Last Admin: 11/18/18 09:00 Dose: 3.125 mg Clopidogrel Bisulfate (Plavix) 75 mg PO DAILY [facility] Last Admin: 11/18/18 08:59 Dose: 75 mg Docusate Sodium (Colace) 100 mg PO BID [facility] Last Admin: 11/18/18 16:40 Dose: 100 mg Ergocalciferol (Drisdol 50,000 Intl Units Cap) 1 cap PO SAT [facility] Last Admin: 11/16/18 09:23 Dose: 1 cap Home Med (Cu/Se/Vit A/Vit C/Vit E/Zinc [Ocuvite]) 1 tab PO DAILY [facility] Last Admin: 11/18/18 09:03 Dose: 1 tab Home Med (Empagliflozin/Metformin Hcl [Synjardy Xr 12.5-1,000 Mg Tab]) 1 tab PO BID [facility] Last Admin: 11/18/18 16:39 Dose: 1 tab Home Med (Insulin Degludec/Liraglutide [Xultophy 100 Unit-3.6mg/Ml Pen]) 38 units SQ HS [facility] Last Admin: 11/17/18 22:54 Dose: Not Given Home Med (Multivit-Min/Fa/Lycopen/Lutein [Centrum Silver Tablet]) 1 each PO DAILY [facility] Last Admin: 11/18/18 08:59 Dose: 1 each Home Med (Propylene Glycol/Peg 400 [Systane 0.3-0.4% Eye Drops]) 1 drop BOTHEYES DAILY [facility] Last Admin: 11/18/18 08:59 Dose: 1 drop Piperacillin Sod/Tazobactam (Sod 3.375 gm/ Sodium Chloride) 100 mls @ 100 mls/hr IVPB Q6 [facility]; Protocol Last Admin: 11/18/18 16:38 Dose: 100 mls/hr Vancomycin HCl 1 gm/ Sodium (Chloride) 250 mls @ 166.667 mls/hr IVPB Q12@0900,2100 [facility]; Protocol Lactulose (Enulose) 10 gm PO DAILY PRN PRN Reason: Constipation Lisinopril (Zestril) 5 mg PO DAILY [facility] Last Admin: 11/18/18 09:00 Dose: 5 mg Hurnc-3-Fpar Ethyl Esters (Lovaza) 2 gm PO HS [facility] Last Admin: 11/17/18 21:12 Dose: 2 gm - Labs Labs: 11/18/18 09:22 11/18/18 09:22 PT 12.7 Seconds (9.8-13.1) 11/15/18 04:25 INR 1.1 11/15/18 04:25 Assessment and Plan (1) Diabetic foot ulcer Status: Acute
[2018-11-18] MEDS: Omega-3-Acid Ethyl Esters 1 GM Cap PO SCH (22:08)
[2018-11-18] MEDS: [UNRECOGNIZED DRUG - OTHER] SQ SCH (23:04)
[2018-11-18] MEDS: LIRAGLUTIDE SQ SCH (23:04)
[2018-11-18] MEDS: INSULIN DEGLUDEC SQ SCH (23:04)
[2018-11-19] MEDS: Piperacillin/Tazobact 3.375 GM in Sodium Chloride 0.9% 100 ML IVPB SCH ×4 (03:20→21:53)
--- NOTE | 2018-11-19 07:47 | CP.PCM.PN ---
Subjective - Date & Time of Evaluation Date of Evaluation: 11/19/18 Time of Evaluation: 07:45 - Subjective Subjective: Podiatry [place] Note: Dr. Deluna 68 year old male patient seen and evaluated for left ankle ulcer, 4 days s/p debridement of ulceration. Patient AAOx3 and in NAD. Patient states his pain has decreased since yesterday and is well controlled. Reports walking with physical therapy with use of surgical shoe. Denies tingling or numbness in the lower extremity. States he was told he might go to TCU for IV antibiotics Denies N/V/F/SOB/CP. Objective - Vital Signs/Intake and Output Vital Signs (last 24 hours): Temp Pulse Resp BP Pulse Ox 98.2 F 80 18 140/87 94 L 11/19/18 05:00 11/19/18 05:00 11/19/18 05:00 11/19/18 05:00 11/19/18 05:00 - Medications Medications: Current Medications Acetaminophen (Tylenol 325mg Tab) 650 mg PO Q6 PRN PRN Reason: Pain, Mild (1-3) Last Admin: 11/13/18 08:25 Dose: 650 mg Aspirin (Aspirin) 325 mg PO DAILY [facility] Last Admin: 11/18/18 09:46 Dose: 325 mg Atorvastatin Calcium (Lipitor) 40 mg PO HS [facility] Last Admin: 11/18/18 22:11 Dose: 40 mg Bisacodyl (Dulcolax) 5 mg PO HS [facility] Last Admin: 11/18/18 22:10 Dose: 5 mg Carvedilol (Coreg) 3.125 mg PO Q12 [facility] Last Admin: 11/18/18 22:08 Dose: 3.125 mg Clopidogrel Bisulfate (Plavix) 75 mg PO DAILY [facility] Last Admin: 11/18/18 08:59 Dose: 75 mg Docusate Sodium (Colace) 100 mg PO BID [facility] Last Admin: 11/18/18 16:40 Dose: 100 mg Ergocalciferol (Drisdol 50,000 Intl Units Cap) 1 cap PO SAT [facility] Last Admin: 11/16/18 09:23 Dose: 1 cap Home Med (Cu/Se/Vit A/Vit C/Vit E/Zinc [Ocuvite]) 1 tab PO DAILY [facility] Last Admin: 11/18/18 09:03 Dose: 1 tab Home Med (Empagliflozin/Metformin Hcl [Synjardy Xr 12.5-1,000 Mg Tab]) 1 tab PO BID [facility] Last Admin: 11/18/18 16:39 Dose: 1 tab Home Med (Insulin Degludec/Liraglutide [Xultophy 100 Unit-3.6mg/Ml Pen]) 38 units SQ HS [facility] Last Admin: 11/18/18 23:04 Dose: 38 units Home Med (Multivit-Min/Fa/Lycopen/Lutein [Centrum Silver Tablet]) 1 each PO DAILY [facility] Last Admin: 11/18/18 08:59 Dose: 1 each Home Med (Propylene Glycol/Peg 400 [Systane 0.3-0.4% Eye Drops]) 1 drop BOTHEYES DAILY [facility] Last Admin: 11/18/18 08:59 Dose: 1 drop Piperacillin Sod/Tazobactam (Sod 3.375 gm/ Sodium Chloride) 100 mls @ 100 mls/hr IVPB Q6 [facility]; Protocol Last Admin: 11/19/18 03:20 Dose: 100 mls/hr Vancomycin HCl 1 gm/ Sodium (Chloride) 250 mls @ 166.667 mls/hr IVPB Q12@0900,2100 [facility]; Protocol Last Admin: 11/18/18 22:09 Dose: 166.667 mls/hr Lactulose (Enulose) 10 gm PO DAILY PRN PRN Reason: Constipation Lisinopril (Zestril) 5 mg PO DAILY [facility] Last Admin: 11/18/18 09:00 Dose: 5 mg Anqyn-8-Eqyz Ethyl Esters (Lovaza) 2 gm PO HS [facility] Last Admin: 11/18/18 22:08 Dose: 2 gm - Labs Labs: 11/18/18 09:22 11/18/18 09:22 PT 12.7 Seconds (9.8-13.1) 11/15/18 04:25 INR 1.1 11/15/18 04:25 - Constitutional Appears: Well, Non-toxic, No Acute Distress - Head Exam Head Exam: ATRAUMATIC - Extremities Exam Additional comments: Right BKA noted Left lower extremity focused exam: Derm: Open ulceration appreciated to lateral malleolus with exposed tendon noted. Ulceration measures approximately 3cm x2cm x .4cm, with fibrous wound base and macerated wound border. No active drainage noted, no malodor, no purulence, no fluctuance. Vascular: DP/PT 1/4. CFT < 3seconds. Temperature gradient is warm to touch to [place]-wound area. + 1 edema noted perimalleolar region Ortho: Tenderness to palpation of malleolar site. MMT 4/5. No pain with calf compression Neuro: Gross and protective sensation diminished - Neurological Exam Neurological Exam: Alert, Awake, Oriented x3 Assessment and Plan - Assessment and Plan (Free Text) Assessment: 68 year old diabetic male 4 days s/p debridement of left ankle ulcer secondary to diabetes with peripheral vascular disease Plan: Patient seen and evaluated at bedside Discussed patient's treatment plan with Dr. Deluna Local wound care to L ankle ulceration performed with saline cleanse and application of xeroform, DSD L ankle x-ray taken; soft tissue swelling without acute articular or osseous abnormality Wound cx taken: Staph aureus Intra-operative wound cultures: pending C/w with pain control per primary team Per Dr. Deluna- patient has had extensive vascular workup with unsuccessful intervention ID recs per Dr. Anderson, appreciate recommendations Patient may be full WB with use of surgical shoe to L foot Will continue to follow
--- NOTE | 2018-11-19 08:25 | OP ---
PROCEDURE DATE: 11/15/2018 SURGEON: Dr. Deluna. DIGITAL MARKETING STRATEGIST: Meenakshi Freeman, PGY-1 ANESTHESIA: IV sedation with local. PREOPERATIVE DIAGNOSIS: Left ankle nonhealing ulcer. POSTOPERATIVE DIAGNOSIS: Left ankle nonhealing ulcer. NAME OF PROCEDURE: Left ankle wound incision and drainage with the use of versajet. INDICATIONS: The patient is a 68-year-old male patient with the above diagnosis. The patient has exhausted all conservative treatment at this time and now requires surgical intervention. The patient signed the consent after careful explanation of risks, benefits, complications, and alternatives for surgical procedure. No guarantees were given nor implied. N.p.o. status was confirmed prior to taking the patient to the operating room. PREPARATION: The patient was brought into the operating room and placed on the operating room table in the supine position. Time-out was performed for identification of the correct patient and procedure. After induction of IV sedation, the patient received a total of 6 mL of 1:1 mixture of 0.5% Marcaine plain and 2% lidocaine plain in an ankle block type fashion. Once local anesthesia was achieved, the left lower extremity was then prepped and draped in the normal sterile manner and the procedure began. No tourniquet was used during this procedure. DESCRIPTION OF PROCEDURE: Attention was directed to the lateral aspect of the left ankle where an ulceration measuring approximately 5.3 cm x 3 cm was appreciated. The ulceration was noted to be composed of fibrotic wound base and probed down to bone and tracked proximally along the course of the peroneal tendon. Next, using sharp mechanical debridement with a large curette, all fibrotic tissue was excised from the wound bed. At this time, 2 mL of purulent drainage was expressed from the proximal margin of the wound tracking along the course of the peroneal. Two deep wound cultures were taken at this time and passed off the operating field. Next, the area was copiously irrigated with normal sterile saline with a bulb syringe. Then, using Versajet the wound bed edges were excisionally debrided of all remaining fibrotic and nonviable tissue until a healthy bleeding granular tissue appeared. The surgical site was then irrigated again using normal sterile saline solution with a bulb syringe. The site was packed with a 1/4-inch iodoform packing and dressed with Xeroform, DSD, ABD and Kerlix. POSTOPERATIVE CONDITION: The patient tolerated the anesthesia and procedure well and was escorted to the recovery room with vital signs stable and neurovascular status intact to the left foot and lower extremity. The patient is to be weightbearing as tolerated to the left foot in a surgical shoe. Podiatry will continue to follow the patient while in-house and will be seen by Dr. Deluna in his office upon discharge. Meenakshi Carey Hector Deluna DPM [email or web address]
[2018-11-19] MEDS: PEG BOTHEYES SCH (11:39)
[2018-11-19] MEDS: PROPYLENE GLYCOL BOTHEYES SCH (11:39)
[2018-11-19] MEDS: Patient's Own Med (Cu/Se/Vit A/Vit C/Vit E/Zinc [Ocuvite] 1 TAB) PO SCH (11:41)
[2018-11-19] MEDS: METFORMIN HCL PO SCH ×2 (11:41→17:00)
[2018-11-19] MEDS: EMPAGLIFLOZIN PO SCH ×2 (11:41→17:00)
[2018-11-19] MEDS: [UNRECOGNIZED DRUG - OTHER] PO SCH (11:50)
[2018-11-19] MEDS: LYCOPEN PO SCH (11:50)
[2018-11-19] MEDS: MULTIVIT MIN PO SCH (11:50)
[2018-11-19] MEDS: LUTEIN PO SCH (11:50)
--- NOTE | 2018-11-19 17:32 | CP.PCM.PN ---
Subjective - Date & Time of Evaluation Date of Evaluation: 11/19/18 Time of Evaluation: 11:20 - Subjective Subjective: Patient is doing well post op Has no fever. Has minimal pain. Objective - Vital Signs/Intake and Output Vital Signs (last 24 hours): Temp Pulse Resp BP Pulse Ox 98.8 F 80 17 120/73 97 11/19/18 15:46 11/19/18 15:46 11/19/18 15:46 11/19/18 15:46 11/19/18 15:46 - Medications Medications: Current Medications Acetaminophen (Tylenol 325mg Tab) 650 mg PO Q6 PRN PRN Reason: Pain, Mild (1-3) Last Admin: 11/13/18 08:25 Dose: 650 mg Aspirin (Aspirin) 325 mg PO DAILY [facility] Last Admin: 11/19/18 11:39 Dose: 325 mg Atorvastatin Calcium (Lipitor) 40 mg PO HS [facility] Last Admin: 11/18/18 22:11 Dose: 40 mg Bisacodyl (Dulcolax) 5 mg PO [facility] Last Admin: 11/18/18 22:10 Dose: 5 mg Carvedilol (Coreg) 3.125 mg PO Q12 [facility] Last Admin: 11/19/18 11:43 Dose: 3.125 mg Clopidogrel Bisulfate (Plavix) 75 mg PO DAILY [facility] Last Admin: 11/19/18 11:43 Dose: 75 mg Collagenase (Santyl) 1 applic TOP DAILY [facility] Docusate Sodium (Colace) 100 mg PO BID [facility] Last Admin: 11/19/18 11:43 Dose: 100 mg Ergocalciferol (Drisdol 50,000 Intl Units Cap) 1 cap PO SAT [facility] Last Admin: 11/16/18 09:23 Dose: 1 cap Home Med (Cu/Se/Vit A/Vit C/Vit E/Zinc [Ocuvite]) 1 tab PO DAILY [facility] Last Admin: 11/19/18 11:41 Dose: 1 tab Home Med (Empagliflozin/Metformin Hcl [Synjardy Xr 12.5-1,000 Mg Tab]) 1 tab PO BID [facility] Last Admin: 11/19/18 11:41 Dose: 1 tab Home Med (Insulin Degludec/Liraglutide [Xultophy 100 Unit-3.6mg/Ml Pen]) 38 units SQ HS [facility] Last Admin: 11/18/18 23:04 Dose: 38 units Home Med (Multivit-Min/Fa/Lycopen/Lutein [Centrum Silver Tablet]) 1 each PO DAILY [facility] Last Admin: 11/19/18 11:50 Dose: 1 each Home Med (Propylene Glycol/Peg 400 [Systane 0.3-0.4% Eye Drops]) 1 drop BOTHEYES DAILY [facility] Last Admin: 11/19/18 11:39 Dose: 1 drop Piperacillin Sod/Tazobactam (Sod 3.375 gm/ Sodium Chloride) 100 mls @ 100 mls/hr IVPB Q6 [facility]; Protocol Last Admin: 11/19/18 11:44 Dose: 100 mls/hr Vancomycin HCl 1 gm/ Sodium (Chloride) 250 mls @ 166.667 mls/hr IVPB Q12@0900,2100 [facility]; Protocol Last Admin: 11/18/18 22:09 Dose: 166.667 mls/hr Lactulose (Enulose) 10 gm PO DAILY PRN PRN Reason: Constipation Lisinopril (Zestril) 5 mg PO DAILY [facility] Last Admin: 11/19/18 11:42 Dose: 5 mg Bwegg-0-Mhbg Ethyl Esters (Lovaza) 2 gm PO HS [facility] Last Admin: 11/18/18 22:08 Dose: 2 gm - Labs Labs: 11/18/18 09:22 11/18/18 09:22 PT 12.7 Seconds (9.8-13.1) 11/15/18 04:25 INR 1.1 11/15/18 04:25 - Head Exam Head Exam: NORMAL INSPECTION - Eye Exam Eye Exam: Normal appearance - ENT Exam ENT Exam: Mucous Membranes Moist - Respiratory Exam Respiratory Exam: Clear to Ausculation Bilateral - Cardiovascular Exam Cardiovascular Exam: REGULAR RHYTHM - GI/Abdominal Exam GI & Abdominal Exam: Normal Bowel Sounds - Neurological Exam Neurological Exam: Awake, Oriented x3 Assessment and Plan (1) Diabetic foot ulcer Status: Acute (2) Cellulitis Status: Acute (3) Diabetes mellitus type 2 in obese Status: Acute (4) Anemia Status: Chronic (5) CAD (coronary artery disease) Status: Chronic (6) Hypertension Status: Chronic (7) Peripheral vascular disease of extremity Status: Chronic - Assessment and Plan (Free Text) Plan: Con tmeds cont tx Phys therapy Subacute rehab eval
[2018-11-19] MEDS: Bisacodyl 5mg EC Tab PO SCH (21:42)
[2018-11-19] MEDS: Omega-3-Acid Ethyl Esters 1 GM Cap PO SCH (21:43)
[2018-11-19] MEDS: LIRAGLUTIDE SQ SCH (21:57)
[2018-11-19] MEDS: [UNRECOGNIZED DRUG - OTHER] SQ SCH (21:57)
[2018-11-19] MEDS: INSULIN DEGLUDEC SQ SCH (21:57)
[2018-11-20] MEDS: Piperacillin/Tazobact 3.375 GM in Sodium Chloride 0.9% 100 ML IVPB SCH ×4 (04:23→21:16)
--- NOTE | 2018-11-20 09:48 | CP.PCM.PN ---
Subjective - Date & Time of Evaluation Date of Evaluation: 11/20/18 Time of Evaluation: 09:46 - Subjective Subjective: Podiatry Progres Note: Dr. Deluna 68 year old male patient seen and evaluated for left ankle ulcer, 5 days s/p debridement of ulceration. Patient AAOx3 and in NAD. Patient states his pain has decreased since yesterday and is well controlled. Reports walking with physical therapy with use of surgical shoe. Denies tingling or numbness in the lower extremity. States he was told he might go to TCU for IV antibiotics Denies N/V/F/SOB/CP. Objective - Vital Signs/Intake and Output Vital Signs (last 24 hours): Temp Pulse Resp BP Pulse Ox 97.5 F L 75 18 138/81 97 11/20/18 08:13 11/20/18 08:13 11/20/18 08:13 11/20/18 08:13 11/20/18 08:13 - Medications Medications: Current Medications Acetaminophen (Tylenol 325mg Tab) 650 mg PO Q6 PRN PRN Reason: Pain, Mild (1-3) Last Admin: 11/13/18 08:25 Dose: 650 mg Aspirin (Aspirin) 325 mg PO DAILY [facility] Last Admin: 11/19/18 11:39 Dose: 325 mg Atorvastatin Calcium (Lipitor) 40 mg PO HS [facility] Last Admin: 11/19/18 21:44 Dose: 40 mg Bisacodyl (Dulcolax) 5 mg PO HS [facility] Last Admin: 11/19/18 21:42 Dose: 5 mg Carvedilol (Coreg) 3.125 mg PO Q12 [facility] Last Admin: 11/19/18 21:43 Dose: 3.125 mg Clopidogrel Bisulfate (Plavix) 75 mg PO DAILY [facility] Last Admin: 11/19/18 11:43 Dose: 75 mg Collagenase (Santyl) 1 applic TOP DAILY [facility] Docusate Sodium (Colace) 100 mg PO BID [facility] Last Admin: 11/19/18 16:20 Dose: Not Given Ergocalciferol (Drisdol 50,000 Intl Units Cap) 1 cap PO SAT [facility] Last Admin: 11/16/18 09:23 Dose: 1 cap Home Med (Cu/Se/Vit A/Vit C/Vit E/Zinc [Ocuvite]) 1 tab PO DAILY [facility] Last Admin: 11/19/18 11:41 Dose: 1 tab Home Med (Empagliflozin/Metformin Hcl [Synjardy Xr 12.5-1,000 Mg Tab]) 1 tab PO BID [facility] Last Admin: 11/19/18 17:00 Dose: Not Given Home Med (Insulin Degludec/Liraglutide [Xultophy 100 Unit-3.6mg/Ml Pen]) 38 units SQ HS [facility] Last Admin: 11/19/18 21:57 Dose: 38 units Home Med (Multivit-Min/Fa/Lycopen/Lutein [Centrum Silver Tablet]) 1 each PO DAILY [facility] Last Admin: 11/19/18 11:50 Dose: 1 each Home Med (Propylene Glycol/Peg 400 [Systane 0.3-0.4% Eye Drops]) 1 drop BOTHEYES DAILY [facility] Last Admin: 11/19/18 11:39 Dose: 1 drop Piperacillin Sod/Tazobactam (Sod 3.375 gm/ Sodium Chloride) 100 mls @ 100 mls/hr IVPB Q6 [facility]; Protocol Last Admin: 11/20/18 04:23 Dose: 100 mls/hr Vancomycin HCl 1 gm/ Sodium (Chloride) 250 mls @ 166.667 mls/hr IVPB Q12@0900,2100 [facility]; Protocol Last Admin: 11/19/18 21:55 Dose: 166.667 mls/hr Lactulose (Enulose) 10 gm PO DAILY PRN PRN Reason: Constipation Lisinopril (Zestril) 5 mg PO DAILY [facility] Last Admin: 11/19/18 11:42 Dose: 5 mg Asocd-6-Mxup Ethyl Esters (Lovaza) 2 gm PO [facility] Last Admin: 11/19/18 21:43 Dose: 2 gm - Labs Labs: 11/18/18 09:22 11/18/18 09:22 PT 12.7 Seconds (9.8-13.1) 11/15/18 04:25 INR 1.1 11/15/18 04:25 - Constitutional Appears: Well, Non-toxic, No Acute Distress - Head Exam Head Exam: ATRAUMATIC - Eye Exam Eye Exam: Normal appearance Pupil Exam: NORMAL ACCOMODATION - ENT Exam ENT Exam: Mucous Membranes Moist - Extremities Exam Additional comments: Right BKA noted Left lower extremity focused exam: Derm: Open ulceration appreciated to lateral malleolus with exposed tendon noted. Ulceration measures approximately 3cm x2cm x .4cm, with fibrous wound base and macerated wound border. No active drainage noted, no malodor, no purulence, no fluctuance. Vascular: DP/PT 1/4. CFT < 3seconds. Temperature gradient is warm to touch to [place]-wound area. + 1 edema noted perimalleolar region Ortho: Tenderness to palpation of malleolar site. MMT 4/5. No pain with calf compression Neuro: Gross and protective sensation diminished - Neurological Exam Neurological Exam: Alert, Awake, Oriented x3 Assessment and Plan - Assessment and Plan (Free Text) Assessment: 68 year old diabetic male 5 days s/p debridement of left ankle ulcer secondary to diabetes with peripheral vascular disease Plan: Patient seen and evaluated at bedside Discussed patient's treatment plan with Dr. Deluna Local wound care to L ankle ulceration performed with saline cleanse and applica tion of xeroform, DSD L ankle x-ray taken; soft tissue swelling without acute articular or osseous a bnormality Wound cx taken: Staph aureus Intra-operative wound cultures: pending C/w with pain control per primary team Per Dr. Deluna- patient has had extensive vascular workup with unsuccessful inte rvention ID recs per Dr. Anderson, appreciate recommendations Patient may be full WB with use of surgical shoe to L foot Will continue to follow
[2018-11-20] MEDS: LUTEIN PO SCH (10:15)
[2018-11-20] MEDS: MULTIVIT MIN PO SCH (10:15)
[2018-11-20] MEDS: LYCOPEN PO SCH (10:15)
[2018-11-20] MEDS: [UNRECOGNIZED DRUG - OTHER] PO SCH (10:15)
[2018-11-20] MEDS: PEG BOTHEYES SCH (10:17)
[2018-11-20] MEDS: Santyl Collagenase OINTMENT TOP SCH (10:17)
[2018-11-20] MEDS: PROPYLENE GLYCOL BOTHEYES SCH (10:17)
[2018-11-20] MEDS: Patient's Own Med (Cu/Se/Vit A/Vit C/Vit E/Zinc [Ocuvite] 1 TAB) PO SCH (10:32)
[2018-11-20] MEDS: EMPAGLIFLOZIN PO SCH ×2 (10:34→16:32)
[2018-11-20] MEDS: METFORMIN HCL PO SCH ×2 (10:34→16:32)
--- NOTE | 2018-11-20 13:31 | CP.PCM.PN ---
Subjective - Date & Time of Evaluation Date of Evaluation: 11/20/18 Time of Evaluation: 08:00 - Subjective Subjective: DOING OK AFEBRILE NAD Objective - Vital Signs/Intake and Output Vital Signs (last 24 hours): Temp Pulse Resp BP Pulse Ox 97.4 F L 80 18 128/80 94 L 11/20/18 12:16 11/20/18 12:16 11/20/18 12:16 11/20/18 12:16 11/20/18 12:16 - Medications Medications: Current Medications Acetaminophen (Tylenol 325mg Tab) 650 mg PO Q6 PRN PRN Reason: Pain, Mild (1-3) Last Admin: 11/13/18 08:25 Dose: 650 mg Aspirin (Aspirin) 325 mg PO DAILY [facility] Last Admin: 11/20/18 10:13 Dose: 325 mg Atorvastatin Calcium (Lipitor) 40 mg PO HS [facility] Last Admin: 11/19/18 21:44 Dose: 40 mg Bisacodyl (Dulcolax) 5 mg PO HS [facility] Last Admin: 11/19/18 21:42 Dose: 5 mg Carvedilol (Coreg) 3.125 mg PO Q12 [facility] Last Admin: 11/20/18 10:14 Dose: 3.125 mg Clopidogrel Bisulfate (Plavix) 75 mg PO DAILY [facility] Last Admin: 11/20/18 10:16 Dose: 75 mg Collagenase (Santyl) 1 applic TOP DAILY [facility] Last Admin: 11/20/18 10:17 Dose: 1 applic Docusate Sodium (Colace) 100 mg PO BID [facility] Last Admin: 11/20/18 10:13 Dose: 100 mg Ergocalciferol (Drisdol 50,000 Intl Units Cap) 1 cap PO SAT [facility] Last Admin: 11/16/18 09:23 Dose: 1 cap Home Med (Cu/Se/Vit A/Vit C/Vit E/Zinc [Ocuvite]) 1 tab PO DAILY [facility] Last Admin: 11/20/18 10:32 Dose: 1 tab Home Med (Empagliflozin/Metformin Hcl [Synjardy Xr 12.5-1,000 Mg Tab]) 1 tab PO BID [facility] Last Admin: 11/20/18 10:34 Dose: 1 tab Home Med (Insulin Degludec/Liraglutide [Xultophy 100 Unit-3.6mg/Ml Pen]) 38 units SQ [facility] Last Admin: 11/19/18 21:57 Dose: 38 units Home Med (Multivit-Min/Fa/Lycopen/Lutein [Centrum Silver Tablet]) 1 each PO DAILY [facility] Last Admin: 11/20/18 10:15 Dose: 1 each Home Med (Propylene Glycol/Peg 400 [Systane 0.3-0.4% Eye Drops]) 1 drop BOTHEYES DAILY [facility] Last Admin: 11/20/18 10:17 Dose: 1 drop Piperacillin Sod/Tazobactam (Sod 3.375 gm/ Sodium Chloride) 100 mls @ 100 mls/hr IVPB Q6 [facility]; Protocol Last Admin: 11/20/18 10:29 Dose: 100 mls/hr Vancomycin HCl 1 gm/ Sodium (Chloride) 250 mls @ 166.667 mls/hr IVPB Q12@0900,2100 [facility]; Protocol Last Admin: 11/20/18 10:18 Dose: 166.667 mls/hr Lactulose (Enulose) 10 gm PO DAILY PRN PRN Reason: Constipation Lisinopril (Zestril) 5 mg PO DAILY [facility] Last Admin: 11/20/18 10:20 Dose: 5 mg Qggbo-2-Znin Ethyl Esters (Lovaza) 2 gm PO [facility] Last Admin: 11/19/18 21:43 Dose: 2 gm - Labs Labs: 11/18/18 09:22 11/18/18 09:22 PT 12.7 Seconds (9.8-13.1) 11/15/18 04:25 INR 1.1 11/15/18 04:25 - Constitutional Appears: Well - Head Exam Head Exam: ATRAUMATIC, NORMAL INSPECTION, NORMOCEPHALIC - Eye Exam Eye Exam: EOMI, Normal appearance, PERRL Pupil Exam: NORMAL ACCOMODATION, PERRL - ENT Exam ENT Exam: Mucous Membranes Moist, Normal Exam - Neck Exam Neck Exam: Full ROM, Normal Inspection. absent: Lymphadenopathy - Respiratory Exam Respiratory Exam: Clear to Ausculation Bilateral, NORMAL BREATHING PATTERN - Cardiovascular Exam Cardiovascular Exam: REGULAR RHYTHM, +S1, +S2. absent: Murmur - GI/Abdominal Exam GI & Abdominal Exam: Soft, Normal Bowel Sounds. absent: Tenderness - Rectal Exam Rectal Exam: NORMAL INSPECTION - Extremities Exam Extremities Exam: Full ROM, Normal Capillary Refill, Normal Inspection. absent: Joint Swelling, Pedal Edema - Back Exam Back Exam: NORMAL INSPECTION - Neurological Exam Neurological Exam: Alert, Awake, CN II-XII Intact, Normal Gait, Oriented x3 - Psychiatric Exam Psychiatric exam: Normal Affect, Normal Mood - Skin Skin Exam: Dry, Intact, Normal Color, Warm Additional comments: RIGHT BKA + LEFT LAT MALLEOLUS WOUNFD IS C/D/I Assessment and Plan (1) Cellulitis Status: Acute (2) Diabetic foot ulcer Status: Acute - Assessment and Plan (Free Text) Assessment: CONT IV ANCEF FOR MSSA FOR 6-8 WEEKS
--- NOTE | 2018-11-20 19:24 | PQF ---
PROVIDER RESPONSE TEXT: Sepsis met with elevated wbc, tachycardia with source of infection. REVIEWER QUERY TEXT: Clarification of Clinical Diagnostic Findings Please clarify documentation of the Diagnosis of Sepsis listed in the Admission order and then the di agnosis is dropped: please document if Sepsis is ruled in or or Sepsis is ruled out V/S record: afebrile Pulse range:63->87 Respiratory Rate: 16->20 WBC:4.7 H and P:admitted due to left ankle wound infection. He has a hx of PVD and recurrent left ankle ulcer Assess: (1) Diabetic foot ulcer Status: Acute (2) Cellulitis Status: Acute (3) Diabetes mellitus type 2 in obese Status: Acute (4) Anemia Status: Chronic (5) CAD Status: Chronic (6) Hypertension Status: Chronic (7) Peripheral vascular disease of extremity Status: Chronic 11/13: ID note: Assessment :(1) Cellulitis Status: Acute (2) Diabetic foot ulcer Status: Acute Assess: r/o OM left ankle cultures + for MSSA consider vascular eval await MRI for debridement The patient's Clinical Indicators include: -- Query created by: Ariella Agudelo on 11/13/2018 12:22 PM Electronically signed by: Alfredo Hutton MD 11/20/2018 7:21 PM
--- NOTE | 2018-11-20 19:24 | PQF ---
PROVIDER RESPONSE TEXT: Provider was unable to determine a response for this query. REVIEWER QUERY TEXT: Conflicting Documentation Clarification Ankle Ulcer due to DM versus Ankle Ulcer due to DM and PAD -- Other, please specify H and P:HPI: He has a hx of PVD and recurrent left ankle ulcer and follows up with Podiatry. Assessment (1) Diabetic foot ulcer Status: Acute (2) Cellulitis Status: Acute (3) Diabetes mellitus type 2 in obese Status: Acute (4) Anemia Status: Chronic (5) CAD (coronary artery disease) Status: Chronic Priority: Medium (6) Hypertension Status: Chronic (7) Peripheral vascular disease of extremity Status: Chronic Priority: High Onset Date: 10/20/1411/11: Podiatry consult: seen and evaluated for L ankle ulceration secondary to PAD and Diabetes . The patient's Clinical Indicators include: --- Query created by: Ariella Agudelo on 11/14/2018 1:35 PM Electronically signed by: Alfredo Hutton MD 11/20/2018 7:21 PM
[2018-11-20] MEDS: Bisacodyl 5mg EC Tab PO SCH (22:03)
[2018-11-20] MEDS: Omega-3-Acid Ethyl Esters 1 GM Cap PO SCH (22:03)
[2018-11-20] MEDS: INSULIN DEGLUDEC SQ SCH (22:04)
[2018-11-20] MEDS: [UNRECOGNIZED DRUG - OTHER] SQ SCH (22:04)
[2018-11-20] MEDS: LIRAGLUTIDE SQ SCH (22:04)
--- NOTE | 2018-11-21 00:06 | CP.PCM.PN ---
Subjective - Date & Time of Evaluation Date of Evaluation: 11/20/18 Time of Evaluation: 16:00 - Subjective Subjective: Pt seen and assessed at bedside. S/P I&D left ankle/foot. Currently receiving Vancomycin IV. Plan of care discussed with Dr. Anderson. Pt to receive Ancef halfway antibiotic treatment. For possible Subacute Rehab. Review of Systems - EENT Eyes: UNREMARKABLE Ears: UNREMARKABLE Nose/Mouth/Throat: UNREMARKABLE - Cardiovascular Cardiovascular: UNREMARKABLE - Respiratory Respiratory: UNREMARKABLE - Gastrointestinal Gastrointestinal: UNREMARKABLE - Musculoskeletal Additional comments: mild pain left ankle - Integumentary Additional comments: left ankle surgical site mild pain - Neurological Neurological: UNREMARKABLE - Psychiatric Psychiatric: UNREMARKABLE - Endocrine Endocrine: UNREMARKABLE - Hematologic/Lymphatic Hematologic: UNREMARKABLE Objective - Vital Signs/Intake and Output Vital Signs (last 24 hours): Temp Pulse Resp BP Pulse Ox 97.6 F 78 20 123/69 95 11/20/18 18:36 11/20/18 21:13 11/20/18 18:36 11/20/18 21:13 11/20/18 18:36 - Medications Medications: Current Medications Acetaminophen (Tylenol 325mg Tab) 650 mg PO Q6 PRN PRN Reason: Pain, Mild (1-3) Last Admin: 11/20/18 16:30 Dose: 650 mg Aspirin (Aspirin) 325 mg PO DAILY [facility] Last Admin: 11/20/18 10:13 Dose: 325 mg Atorvastatin Calcium (Lipitor) 40 mg PO HS [facility] Last Admin: 11/20/18 22:03 Dose: 40 mg Bisacodyl (Dulcolax) 5 mg PO HS [facility] Last Admin: 11/20/18 22:03 Dose: 5 mg Carvedilol (Coreg) 3.125 mg PO Q12 [facility] Last Admin: 11/20/18 21:13 Dose: 3.125 mg Clopidogrel Bisulfate (Plavix) 75 mg PO DAILY [facility] Last Admin: 11/20/18 10:16 Dose: 75 mg Collagenase (Santyl) 1 applic TOP DAILY [facility] Last Admin: 11/20/18 10:17 Dose: 1 applic Docusate Sodium (Colace) 100 mg PO BID [facility] Last Admin: 11/20/18 16:32 Dose: 100 mg Ergocalciferol (Drisdol 50,000 Intl Units Cap) 1 cap PO SAT [facility] Last Admin: 11/16/18 09:23 Dose: 1 cap Home Med (Cu/Se/Vit A/Vit C/Vit E/Zinc [Ocuvite]) 1 tab PO DAILY [facility] Last Admin: 11/20/18 10:32 Dose: 1 tab Home Med (Empagliflozin/Metformin Hcl [Synjardy Xr 12.5-1,000 Mg Tab]) 1 tab PO BID [facility] Last Admin: 11/20/18 16:32 Dose: 1 tab Home Med (Insulin Degludec/Liraglutide [Xultophy 100 Unit-3.6mg/Ml Pen]) 38 units SQ HS [facility] Last Admin: 11/20/18 22:04 Dose: 38 units Home Med (Multivit-Min/Fa/Lycopen/Lutein [Centrum Silver Tablet]) 1 each PO DAILY [facility] Last Admin: 11/20/18 10:15 Dose: 1 each Home Med (Propylene Glycol/Peg 400 [Systane 0.3-0.4% Eye Drops]) 1 drop BOTHEYES DAILY [facility] Last Admin: 11/20/18 10:17 Dose: 1 drop Piperacillin Sod/Tazobactam (Sod 3.375 gm/ Sodium Chloride) 100 mls @ 100 mls/hr IVPB Q6 [facility]; Protocol Last Admin: 11/20/18 21:16 Dose: 100 mls/hr Vancomycin HCl 1 gm/ Sodium (Chloride) 250 mls @ 166.667 mls/hr IVPB Q12@0900,2100 [facility]; Protocol Last Admin: 11/20/18 21:13 Dose: 166.667 mls/hr Lactulose (Enulose) 10 gm PO DAILY PRN PRN Reason: Constipation Lisinopril (Zestril) 5 mg PO DAILY [facility] Last Admin: 11/20/18 10:20 Dose: 5 mg Nkxso-4-Bzle Ethyl Esters (Lovaza) 2 gm PO HS [facility] Last Admin: 11/20/18 22:03 Dose: 2 gm - Labs Labs: 11/18/18 09:22 11/18/18 09:22 PT 12.7 Seconds (9.8-13.1) 11/15/18 04:25 INR 1.1 11/15/18 04:25 - Constitutional Appears: Well - Head Exam Head Exam: NORMOCEPHALIC - Eye Exam Eye Exam: EOMI, PERRL - ENT Exam ENT Exam: Mucous Membranes Moist - Neck Exam Neck Exam: Full ROM - Respiratory Exam Respiratory Exam: Clear to Ausculation Bilateral - Cardiovascular Exam Cardiovascular Exam: REGULAR RHYTHM, +S1, +S2 - GI/Abdominal Exam GI & Abdominal Exam: Soft, Normal Bowel Sounds - Extremities Exam Additional comments: dressing to left ankle; 2+ edema noted. - Back Exam Back Exam: NORMAL INSPECTION - Neurological Exam Neurological Exam: Alert, Awake, Oriented x3 - Psychiatric Exam Psychiatric exam: Normal Affect, Normal Mood - Skin Skin Exam: Dry, Normal Color Assessment and Plan (1) Diabetic foot ulcer Assessment & Plan: Assessment/Impression/Major Problems Now: 1.) MSSA to left ankle. -I&D done. -podiatry consult appreciated. -Pt on Vancomycin but will likely start Ancef to treat MSSA infection for 6-8 weeks. -Case discussed with Dr. Anderson. -Stable to transfer to medical floor. 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 Status: Acute
[2018-11-21] MEDS: Piperacillin/Tazobact 3.375 GM in Sodium Chloride 0.9% 100 ML IVPB SCH ×4 (04:10→21:31)
--- NOTE | 2018-11-21 08:26 | CP.PCM.PN ---
Subjective - Date & Time of Evaluation Date of Evaluation: 11/21/18 Time of Evaluation: 08:24 - Subjective Subjective: Podiatry Progres Note: Dr. Deluna 68 year old male patient seen and evaluated for left ankle ulcer, 6 days s/p debridement of ulceration. Patient AAOx3 and in NAD. Patient states his pain has decreased since yesterday and is well controlled. Reports walking with physical therapy with use of surgical shoe. Denies tingling or numbness in the lower extremity. States he was told he might go to TCU for IV antibiotics Denies N/V/F/SOB/CP. Objective - Vital Signs/Intake and Output Vital Signs (last 24 hours): Temp Pulse Resp BP Pulse Ox 97.9 F 80 18 125/75 95 11/21/18 00:15 11/21/18 00:15 11/21/18 00:15 11/21/18 00:15 11/21/18 00:15 - Medications Medications: Current Medications Acetaminophen (Tylenol 325mg Tab) 650 mg PO Q6 PRN PRN Reason: Pain, Mild (1-3) Last Admin: 11/20/18 16:30 Dose: 650 mg Aspirin (Aspirin) 325 mg PO DAILY [facility] Last Admin: 11/20/18 10:13 Dose: 325 mg Atorvastatin Calcium (Lipitor) 40 mg PO HS [facility] Last Admin: 11/20/18 22:03 Dose: 40 mg Bisacodyl (Dulcolax) 5 mg PO HS [facility] Last Admin: 11/20/18 22:03 Dose: 5 mg Carvedilol (Coreg) 3.125 mg PO Q12 [facility] Last Admin: 11/20/18 21:13 Dose: 3.125 mg Clopidogrel Bisulfate (Plavix) 75 mg PO DAILY [facility] Last Admin: 11/20/18 10:16 Dose: 75 mg Collagenase (Santyl) 1 applic TOP DAILY [facility] Last Admin: 11/20/18 10:17 Dose: 1 applic Docusate Sodium (Colace) 100 mg PO BID [facility] Last Admin: 11/20/18 16:32 Dose: 100 mg Ergocalciferol (Drisdol 50,000 Intl Units Cap) 1 cap PO SAT [facility] Last Admin: 11/16/18 09:23 Dose: 1 cap Home Med (Cu/Se/Vit A/Vit C/Vit E/Zinc [Ocuvite]) 1 tab PO DAILY [facility] Last Admin: 11/20/18 10:32 Dose: 1 tab Home Med (Empagliflozin/Metformin Hcl [Synjardy Xr 12.5-1,000 Mg Tab]) 1 tab PO BID [facility] Last Admin: 11/20/18 16:32 Dose: 1 tab Home Med (Insulin Degludec/Liraglutide [Xultophy 100 Unit-3.6mg/Ml Pen]) 38 units SQ HS [facility] Last Admin: 11/20/18 22:04 Dose: 38 units Home Med (Multivit-Min/Fa/Lycopen/Lutein [Centrum Silver Tablet]) 1 each PO DAILY [facility] Last Admin: 11/20/18 10:15 Dose: 1 each Home Med (Propylene Glycol/Peg 400 [Systane 0.3-0.4% Eye Drops]) 1 drop BOTHEYES DAILY [facility] Last Admin: 11/20/18 10:17 Dose: 1 drop Piperacillin Sod/Tazobactam (Sod 3.375 gm/ Sodium Chloride) 100 mls @ 100 mls/hr IVPB Q6 [facility]; Protocol Last Admin: 11/21/18 04:10 Dose: 100 mls/hr Vancomycin HCl 1 gm/ Sodium (Chloride) 250 mls @ 166.667 mls/hr IVPB Q12@0900,2100 [facility]; Protocol Last Admin: 11/20/18 21:13 Dose: 166.667 mls/hr Lactulose (Enulose) 10 gm PO DAILY PRN PRN Reason: Constipation Lisinopril (Zestril) 5 mg PO DAILY [facility] Last Admin: 11/20/18 10:20 Dose: 5 mg Nethn-4-Wsbb Ethyl Esters (Lovaza) 2 gm PO [facility] Last Admin: 11/20/18 22:03 Dose: 2 gm - Labs Labs: 11/18/18 09:22 11/18/18 09:22 PT 12.7 Seconds (9.8-13.1) 11/15/18 04:25 INR 1.1 11/15/18 04:25 - Constitutional Appears: Well, Non-toxic, No Acute Distress - Head Exam Head Exam: ATRAUMATIC, NORMOCEPHALIC - Eye Exam Eye Exam: Normal appearance - Extremities Exam Additional comments: Right BKA noted Left lower extremity focused exam: Derm: Open ulceration appreciated to lateral malleolus with exposed tendon noted. Ulceration measures approximately 3cm x2cm x .4cm, with fibrous wound base and macerated wound border. No active drainage noted, no malodor, no purulence, no fluctuance. Vascular: DP/PT 1/4. CFT < 3seconds. Temperature gradient is warm to touch to [place]-wound area. + 1 edema noted perimalleolar region Ortho: Tenderness to palpation of malleolar site. MMT 4/5. No pain with calf compression Neuro: Gross and protective sensation diminished Assessment and Plan - Assessment and Plan (Free Text) Assessment: 68 year old diabetic male 6 days s/p debridement of left ankle ulcer secondary to diabetes with peripheral vascular disease Plan: Patient seen and evaluated at bedside Discussed patient's treatment plan with Dr. Deluna Local wound care to L ankle ulceration performed with saline cleanse and application of xeroform, DSD L ankle x-ray taken; soft tissue swelling without acute articular or osseous abnormality Wound cx taken: Staph aureus Intra-operative wound cultures: MSSA C/w with pain control per primary team Per Dr. Deluna- patient has had extensive vascular workup with unsuccessful intervention ID recs per Dr. Anderson, appreciate recommendations- IV ancef for 6-8 weeks Patient may be full WB with use of surgical shoe to L foot Will continue to follow
[2018-11-21] MEDS: Patient's Own Med (Cu/Se/Vit A/Vit C/Vit E/Zinc [Ocuvite] 1 TAB) PO SCH (09:23)
[2018-11-21] MEDS: LYCOPEN PO SCH (09:24)
[2018-11-21] MEDS: MULTIVIT MIN PO SCH (09:24)
[2018-11-21] MEDS: [UNRECOGNIZED DRUG - OTHER] PO SCH (09:24)
[2018-11-21] MEDS: LUTEIN PO SCH (09:24)
[2018-11-21] MEDS: PEG BOTHEYES SCH (09:26)
[2018-11-21] MEDS: PROPYLENE GLYCOL BOTHEYES SCH (09:26)
[2018-11-21] MEDS: Santyl Collagenase OINTMENT TOP SCH (09:26)
--- NOTE | 2018-11-21 13:56 | CP.PCM.PN ---
Subjective - Date & Time of Evaluation Date of Evaluation: 11/21/18 Time of Evaluation: 10:00 - Subjective Subjective: patient currently getting PICC placed unable to examine Objective - Vital Signs/Intake and Output Vital Signs (last 24 hours): Temp Pulse Resp BP Pulse Ox 97.6 F 86 20 145/89 96 11/21/18 08:40 11/21/18 09:23 11/21/18 08:40 11/21/18 09:23 11/21/18 08:40 - Medications Medications: Current Medications Acetaminophen (Tylenol 325mg Tab) 650 mg PO Q6 PRN PRN Reason: Pain, Mild (1-3) Last Admin: 11/20/18 16:30 Dose: 650 mg Aspirin (Aspirin) 325 mg PO DAILY [facility] Last Admin: 11/21/18 09:23 Dose: 325 mg Atorvastatin Calcium (Lipitor) 40 mg PO HS [facility] Last Admin: 11/20/18 22:03 Dose: 40 mg Bisacodyl (Dulcolax) 5 mg PO HS [facility] Last Admin: 11/20/18 22:03 Dose: 5 mg Carvedilol (Coreg) 3.125 mg PO Q12 [facility] Last Admin: 11/21/18 09:23 Dose: 3.125 mg Clopidogrel Bisulfate (Plavix) 75 mg PO DAILY [facility] Last Admin: 11/21/18 09:21 Dose: 75 mg Collagenase (Santyl) 1 applic TOP DAILY [facility] Last Admin: 11/21/18 09:26 Dose: 1 applic Docusate Sodium (Colace) 100 mg PO BID [facility] Last Admin: 11/21/18 09:25 Dose: 100 mg Ergocalciferol (Drisdol 50,000 Intl Units Cap) 1 cap PO SAT [facility] Last Admin: 11/16/18 09:23 Dose: 1 cap Home Med (Cu/Se/Vit A/Vit C/Vit E/Zinc [Ocuvite]) 1 tab PO DAILY [facility] Last Admin: 11/21/18 09:23 Dose: 1 tab Home Med (Empagliflozin/Metformin Hcl [Synjardy Xr 12.5-1,000 Mg Tab]) 1 tab PO BID [facility] Last Admin: 11/20/18 16:32 Dose: 1 tab Home Med (Insulin Degludec/Liraglutide [Xultophy 100 Unit-3.6mg/Ml Pen]) 38 units SQ [facility] Last Admin: 11/20/18 22:04 Dose: 38 units Home Med (Multivit-Min/Fa/Lycopen/Lutein [Centrum Silver Tablet]) 1 each PO DAILY [facility] Last Admin: 11/21/18 09:24 Dose: 1 each Home Med (Propylene Glycol/Peg 400 [Systane 0.3-0.4% Eye Drops]) 1 drop BOTHEYES DAILY [facility] Last Admin: 11/21/18 09:26 Dose: 1 drop Piperacillin Sod/Tazobactam (Sod 3.375 gm/ Sodium Chloride) 100 mls @ 100 mls/hr IVPB Q6 [facility]; Protocol Last Admin: 11/21/18 09:26 Dose: 100 mls/hr Vancomycin HCl 1 gm/ Sodium (Chloride) 250 mls @ 166.667 mls/hr IVPB Q12@0900,2100 [facility]; Protocol Last Admin: 11/21/18 09:27 Dose: 166.667 mls/hr Lactulose (Enulose) 10 gm PO DAILY PRN PRN Reason: Constipation Lisinopril (Zestril) 5 mg PO DAILY [facility] Last Admin: 11/21/18 09:22 Dose: 5 mg [id number] Ethyl Esters (Lovaza) 2 gm PO HS [facility] Last Admin: 11/20/18 22:03 Dose: 2 gm - Labs Labs: 11/18/18 09:22 11/18/18 09:22 PT 12.7 Seconds (9.8-13.1) 11/15/18 04:25 INR 1.1 11/15/18 04:25 Assessment and Plan (1) Diabetic foot ulcer Status: Acute - Assessment and Plan (Free Text) Assessment: available diagnostic data reviewed monitor labs monitor vitals appreciate recommendations per consultants 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
[2018-11-21] MEDS: METFORMIN HCL PO SCH (16:20)
[2018-11-21] MEDS: EMPAGLIFLOZIN PO SCH (16:20)
[2018-11-21] MEDS: Bisacodyl 5mg EC Tab PO SCH (21:29)
[2018-11-21] MEDS: [UNRECOGNIZED DRUG - OTHER] SQ SCH (21:30)
[2018-11-21] MEDS: Omega-3-Acid Ethyl Esters 1 GM Cap PO SCH (21:30)
[2018-11-21] MEDS: LIRAGLUTIDE SQ SCH (21:30)
[2018-11-21] MEDS: INSULIN DEGLUDEC SQ SCH (21:30)
[2018-11-22] MEDS: Piperacillin/Tazobact 3.375 GM in Sodium Chloride 0.9% 100 ML IVPB SCH ×3 (04:05→16:01)
[2018-11-22 07:30] VITALS: O2SAT 96
--- NOTE | 2018-11-22 07:33 | CP.PCM.PN ---
Subjective - Date & Time of Evaluation Date of Evaluation: 11/22/18 Time of Evaluation: 07:31 - Subjective Subjective: Podiatry Progres Note: Dr. Deluna 68 year old male patient seen and evaluated for left ankle ulcer, 7 days s/p debridement of ulceration. Patient AAOx3 and in NAD. Patient states his pain has decreased since yesterday and is well controlled. Reports walking with physical therapy with use of surgical shoe. Denies tingling or numbness in the lower extremity. States he was told he might go to TCU for IV antibiotics Denies N/V/F/SOB/CP. Objective - Vital Signs/Intake and Output Vital Signs (last 24 hours): Temp Pulse Resp BP Pulse Ox 97.6 F 79 20 141/78 96 11/22/18 07:30 11/22/18 07:30 11/22/18 07:30 11/22/18 07:30 11/22/18 07:30 - Medications Medications: Current Medications Acetaminophen (Tylenol 325mg Tab) 650 mg PO Q6 PRN PRN Reason: Pain, Mild (1-3) Last Admin: 11/20/18 16:30 Dose: 650 mg Aspirin (Aspirin) 325 mg PO DAILY [facility] Last Admin: 11/21/18 09:23 Dose: 325 mg Atorvastatin Calcium (Lipitor) 40 mg PO HS [facility] Last Admin: 11/21/18 21:29 Dose: 40 mg Bisacodyl (Dulcolax) 5 mg PO HS [facility] Last Admin: 11/21/18 21:29 Dose: 5 mg Carvedilol (Coreg) 3.125 mg PO Q12 [facility] Last Admin: 11/21/18 20:07 Dose: 3.125 mg Clopidogrel Bisulfate (Plavix) 75 mg PO DAILY [facility] Last Admin: 11/21/18 09:21 Dose: 75 mg Collagenase (Santyl) 1 applic TOP DAILY [facility] Last Admin: 11/21/18 09:26 Dose: 1 applic Docusate Sodium (Colace) 100 mg PO BID [facility] Last Admin: 11/21/18 16:23 Dose: 100 mg Ergocalciferol (Drisdol 50,000 Intl Units Cap) 1 cap PO SAT [facility] Last Admin: 11/16/18 09:23 Dose: 1 cap Home Med (Cu/Se/Vit A/Vit C/Vit E/Zinc [Ocuvite]) 1 tab PO DAILY [facility] Last Admin: 11/21/18 09:23 Dose: 1 tab Home Med (Empagliflozin/Metformin Hcl [Synjardy Xr 12.5-1,000 Mg Tab]) 1 tab PO BID [facility] Last Admin: 11/21/18 16:20 Dose: Not Given Home Med (Insulin Degludec/Liraglutide [Xultophy 100 Unit-3.6mg/Ml Pen]) 38 units SQ HS [facility] Last Admin: 11/21/18 21:30 Dose: 38 units Home Med (Multivit-Min/Fa/Lycopen/Lutein [Centrum Silver Tablet]) 1 each PO DAILY [facility] Last Admin: 11/21/18 09:24 Dose: 1 each Home Med (Propylene Glycol/Peg 400 [Systane 0.3-0.4% Eye Drops]) 1 drop BOT HEYES DAILY [facility] Last Admin: 11/21/18 09:26 Dose: 1 drop Piperacillin Sod/Tazobactam (Sod 3.375 gm/ Sodium Chloride) 100 mls @ 100 mls/hr IVPB Q6 [facility]; Protocol Last Admin: 11/22/18 04:05 Dose: 100 mls/hr Vancomycin HCl 1 gm/ Sodium (Chloride) 250 mls @ 166.667 mls/hr IVPB Q12@0900,2100 [facility]; Protocol Last Admin: 11/21/18 20:08 Dose: 166.667 mls/hr Lactulose (Enulose) 10 gm PO DAILY PRN PRN Reason: Constipation Lisinopril (Zestril) 5 mg PO DAILY [facility] Last Admin: 11/21/18 09:22 Dose: 5 mg [id number]-[id number] Ethyl Esters (Lovaza) 2 gm PO HS [facility] Last Admin: 11/21/18 21:30 Dose: 2 gm - Labs Labs: 11/18/18 09:22 11/18/18 09:22 PT 12.7 Seconds (9.8-13.1) 11/15/18 04:25 INR 1.1 11/15/18 04:25 - Constitutional Appears: Well, Non-toxic - Head Exam Head Exam: ATRAUMATIC - Eye Exam Eye Exam: Normal appearance - Extremities Exam Additional comments: Right BKA noted Left lower extremity focused exam: Derm: Open ulceration appreciated to lateral malleolus with exposed tendon noted. Ulceration measures approximately 3cm x2cm x .4cm, with fibrous wound base and macerated wound border. No active drainage noted, no malodor, no purulence, no fluctuance. Vascular: DP/PT 1/4. CFT < 3seconds. Temperature gradient is warm to touch to [place]-wound area. + 1 edema noted perimalleolar region Ortho: Tenderness to palpation of malleolar site. MMT 4/5. No pain with calf compression Neuro: Gross and protective sensation diminished Assessment and Plan - Assessment and Plan (Free Text) Assessment: 68 year old diabetic male 7 days s/p debridement of left ankle ulcer secondary to diabetes with peripheral vascular disease Plan: Patient seen and evaluated at bedside Discussed patient's treatment plan with Dr. Deluna Local wound care to L ankle ulceration performed with saline cleanse and application of xeroform, DSD L ankle x-ray taken; soft tissue swelling without acute articular or osseous abnormality Wound cx taken: Staph aureus Intra-operative wound cultures: MSSA C/w with pain control per primary team Per Dr. Deluna- patient has had extensive vascular workup with unsuccessful intervention ID recs per Dr. Anderson, appreciate recommendations- IV ancef for 6-8 weeks Patient may be full WB with use of surgical shoe to L foot Will continue to follow Please perform daily dressing changes using santyl and DSD at [facility]. Patient will need to follow up with Dr. Deluna once a week.
[2018-11-22] MEDS: Patient's Own Med (Cu/Se/Vit A/Vit C/Vit E/Zinc [Ocuvite] 1 TAB) PO SCH (08:57)
[2018-11-22] MEDS: EMPAGLIFLOZIN PO SCH ×2 (09:00→16:06)
[2018-11-22] MEDS: PROPYLENE GLYCOL BOTHEYES SCH (09:00)
[2018-11-22] MEDS: METFORMIN HCL PO SCH ×2 (09:00→16:06)
[2018-11-22] MEDS: PEG BOTHEYES SCH (09:00)
[2018-11-22] MEDS: MULTIVIT MIN PO SCH (09:02)
[2018-11-22] MEDS: LUTEIN PO SCH (09:02)
[2018-11-22] MEDS: LYCOPEN PO SCH (09:02)
[2018-11-22] MEDS: [UNRECOGNIZED DRUG - OTHER] PO SCH (09:02)
[2018-11-22] MEDS: Santyl Collagenase OINTMENT TOP SCH (09:07)
[2018-11-22] MEDS ORDERED: Lidocaine 1% Inj (20ml) ONE (10:17)
[2018-11-22 10:19] VITALS: RESP 18
[2018-11-22] MEDS ORDERED: Iodixanol 320 mg/ml 50 ml Sol IV ONE (10:39)
--- NOTE | 2018-11-22 11:03 | PCM.SURG1 ---
Surgeon's Initial Post Op Note - Surgeon's Notes Surgeon: Alec Submarine Cable Equipment Technician: None Type of Anesthesia: Local Pre-Operative Diagnosis: Infection Operative Findings: Patent right brachial vein Post-Operative Diagnosis: Infection Operation Performed: Right brachial vein venogram demonstrating tortuous central veins. US and flouro guided placement of 4F SL 33cm PICC with the tip in the SVC. Specimen/Specimens Removed: None Estimated Blood Loss: EBL {In ML}: 1 Date of Surgery/Procedure: 11/22/18 Time of Surgery/Procedure: 10:45
--- NOTE | 2018-11-22 13:13 | CP.PCM.PN ---
Subjective - Date & Time of Evaluation Date of Evaluation: 11/22/18 Time of Evaluation: 08:00 - Subjective Subjective: afebrile alert nad PICC line in Objective - Vital Signs/Intake and Output Vital Signs (last 24 hours): Temp Pulse Resp BP Pulse Ox 98.7 F 92 H 18 134/78 96 11/22/18 10:18 11/22/18 10:18 11/22/18 10:18 11/22/18 10:18 11/22/18 07:30 - Medications Medications: Current Medications Acetaminophen (Tylenol 325mg Tab) 650 mg PO Q6 PRN PRN Reason: Pain, Mild (1-3) Last Admin: 11/20/18 16:30 Dose: 650 mg Aspirin (Aspirin) 325 mg PO DAILY [facility] Last Admin: 11/22/18 08:56 Dose: 325 mg Atorvastatin Calcium (Lipitor) 40 mg PO HS [facility] Last Admin: 11/21/18 21:29 Dose: 40 mg Bisacodyl (Dulcolax) 5 mg PO HS [facility] Last Admin: 11/21/18 21:29 Dose: 5 mg Carvedilol (Coreg) 3.125 mg PO Q12 [facility] Last Admin: 11/22/18 08:57 Dose: 3.125 mg Clopidogrel Bisulfate (Plavix) 75 mg PO DAILY [facility] Last Admin: 11/22/18 09:03 Dose: 75 mg Collagenase (Santyl) 1 applic TOP DAILY [facility] Last Admin: 11/22/18 09:07 Dose: 1 applic Docusate Sodium (Colace) 100 mg PO BID [facility] Last Admin: 11/22/18 08:56 Dose: 100 mg Ergocalciferol (Drisdol 50,000 Intl Units Cap) 1 cap PO SAT [facility] Last Admin: 11/16/18 09:23 Dose: 1 cap Home Med (Cu/Se/Vit A/Vit C/Vit E/Zinc [Ocuvite]) 1 tab PO DAILY [facility] Last Admin: 11/22/18 08:57 Dose: 1 tab Home Med (Empagliflozin/Metformin Hcl [Synjardy Xr 12.5-1,000 Mg Tab]) 1 tab PO BID [facility] Last Admin: 11/22/18 09:00 Dose: Not Given Home Med (Insulin Degludec/Liraglutide [Xultophy 100 Unit-3.6mg/Ml Pen]) 38 units SQ HS [facility] Last Admin: 11/21/18 21:30 Dose: 38 units Home Med (Multivit-Min/Fa/Lycopen/Lutein [Centrum Silver Tablet]) 1 each PO DAILY [facility] Last Admin: 11/22/18 09:02 Dose: 1 each Home Med (Propylene Glycol/Peg 400 [Systane 0.3-0.4% Eye Drops]) 1 drop BOTHEYES DAILY [facility] Last Admin: 11/22/18 09:00 Dose: 1 drop Piperacillin Sod/Tazobactam (Sod 3.375 gm/ Sodium Chloride) 100 mls @ 100 mls/hr IVPB Q6 [facility]; Protocol Last Admin: 11/22/18 09:10 Dose: 100 mls/hr Vancomycin HCl 1 gm/ Sodium (Chloride) 250 mls @ 166.667 mls/hr IVPB Q12@0900,2100 [facility]; Protocol Last Admin: 11/21/18 20:08 Dose: 166.667 mls/hr Lactulose (Enulose) 10 gm PO DAILY PRN PRN Reason: Constipation Lisinopril (Zestril) 5 mg PO DAILY [facility] Last Admin: 11/22/18 09:02 Dose: 5 mg Hmget-7-Trsi Ethyl Esters (Lovaza) 2 gm PO HS [facility] Last Admin: 11/21/18 21:30 Dose: 2 gm - Labs Labs: 11/18/18 09:22 11/18/18 09:22 PT 12.7 Seconds (9.8-13.1) 11/15/18 04:25 INR 1.1 11/15/18 04:25 - Constitutional Appears: Non-toxic, Chronically Ill - Head Exam Head Exam: NORMOCEPHALIC - Eye Exam Eye Exam: absent: Scleral icterus - ENT Exam ENT Exam: Mucous Membranes Dry - Neck Exam Neck Exam: absent: Lymphadenopathy - Respiratory Exam Respiratory Exam: Decreased Breath Sounds, Clear to Ausculation Bilateral - Cardiovascular Exam Cardiovascular Exam: REGULAR RHYTHM, +S1, +S2 - GI/Abdominal Exam GI & Abdominal Exam: Distended, Soft. absent: Tenderness - Rectal Exam Rectal Exam: Deferred - Exam Exam: NORMAL INSPECTION - Extremities Exam Additional comments: right BKA left foot wound same - Back Exam Back Exam: absent: CVA tenderness (L), CVA tenderness (R) - Neurological Exam Neurological Exam: Alert, Awake, CN II-XII Intact, Oriented x3 - Psychiatric Exam Psychiatric exam: Normal Mood - Skin Skin Exam: Dry Assessment and Plan (1) Cellulitis Status: Acute (2) Diabetic foot ulcer Status: Acute - Assessment and Plan (Free Text) Assessment: probable OM left lat calcaneus- wound + MSSA improving on Ancef cont rx for 6 weeks
[2018-11-22 15:48] VITALS: BP 133/78; PULSE 80; TEMP 97.9
--- NOTE | 2018-11-24 23:41 | CP.PCM.DIS ---
Provider - Provider Date of Admission: 11/11/18 18:01 Attending physician: Rupesh Pino MD Consults: 11/11/18 18:01 Infectious Disease Consult Stat Comment: requested by Dr. Pino Consulting Provider: Kadeem Anderson Consulting Physician: Kadeem Anderson Reason for Consult: DM foot ulcer with cellulitis 11/12/18 00:52 Podiatry Consult Routine Comment: Consulting Provider: Hector Deluna Consulting Physician: Hector Deluna Reason for Consult: left ankle ulcer 11/14/18 09:01 Cardiology Consult Routine Comment: Consulting Provider: Josseline Harman Consulting Physician: Josseline Harman Reason for Consult: cardiac clearance for OR Time Spent in preparation of Discharge (in minutes): 30 Diagnosis - Discharge Diagnosis (1) Diabetic foot ulcer Status: Acute (2) Cellulitis Status: Acute (3) Diabetes mellitus type 2 in obese Status: Acute (4) Anemia Status: Chronic (5) CAD (coronary artery disease) Status: Chronic Priority: Medium (6) Hypertension Status: Chronic (7) Peripheral vascular disease of extremity Status: Chronic Priority: High Onset Date: 10/20/14 Hospital Course - Lab Results Lab Results: Micro Results 11/15/18 17:30 Ankle - Left Anaerobic Culture - Final NO ANAEROBES ISOLATED. 11/15/18 17:30 Ankle - Left Gram Stain - Final 11/15/18 17:30 Ankle - Left Wound Culture - Final Staphylococcus Aureus 11/11/18 13:15 Blood-Venous Blood Culture - Final NO GROWTH AFTER 5 DAYS 11/11/18 13:15 Blood-Venous Gram Stain - Final TEST NOT PERFORMED 11/11/18 13:30 Blood-Venous Blood Culture - Final NO GROWTH AFTER 5 DAYS 11/11/18 13:30 Blood-Venous Gram Stain - Final TEST NOT PERFORMED 11/11/18 18:40 Urine,Clean Catch Urine Culture - Final No Growth (<1,000 CFU/ML) 11/11/18 16:20 Foot - Left Gram Stain - Final 11/11/18 16:20 Foot - Left Wound Culture - Final Staphylococcus Aureus Most Recent Lab Values WBC 7.6 K/uL (4.8-10.8) 11/18/18 09:22 RBC 5.14 Mil/uL (4.40-5.90) 11/18/18 09:22 Hgb 13.6 g/dL (12.0-18.0) 11/18/18 09:22 Hct 42.0 % (35.0-51.0) 11/18/18 09:22 MCV 81.7 fl (80.0-94.0) 11/18/18 09:22 MCH 26.5 pg (27.0-31.0) L 11/18/18 09:22 MCHC 32.5 g/dL (33.0-37.0) L 11/18/18 09:22 RDW 14.7 % (11.5-14.5) H 11/18/18 09:22 Plt Count 237 K/uL (130-400) 11/18/18 09:22 MPV 9.8 fl (7.2-11.7) 11/13/18 10:08 Neut % (Auto) 78.2 % (50.0-75.0) H 11/13/18 10:08 Lymph % (Auto) 8.2 % (20.0-40.0) L 11/13/18 10:08 [place] % (Auto) 9.5 % (0.0-10.0) 11/13/18 10:08 Eos % (Auto) 3.8 % (0.0-4.0) 11/13/18 10:08 Baso % (Auto) 0.3 % (0.0-2.0) 11/13/18 10:08 Neut # (Auto) 8.4 K/uL (1.8-7.0) H 11/13/18 10:08 Lymph # (Auto) 0.9 K/uL (1.0-4.3) L 11/13/18 10:08 [place] # (Auto) 1.0 K/uL (0.0-0.8) H 11/13/18 10:08 Eos # (Auto) 0.4 K/uL (0.0-0.7) 11/13/18 10:08 Baso # (Auto) 0.0 K/uL (0.0-0.2) 11/13/18 10:08 Neutrophils % (Manual) 73 % (42-75) 11/11/18 13:15 Lymphocytes % (Manual) 14 % (20-50) L 11/11/18 13:15 Monocytes % (Manual) 9 % (0-10) 11/11/18 13:15 Eosinophils % (Manual) 4 % (0-7) 11/11/18 13:15 Platelet Estimate Normal (NORMAL) 11/11/18 13:15 Anisocytosis (manual) Slight 11/11/18 13:15 Ovalocytes Slight 11/11/18 13:15 PT 12.7 Seconds (9.8-13.1) 11/15/18 04:25 INR 1.1 11/15/18 04:25 pO2 36 mm/Hg (30-55) 11/11/18 17:30 VBG pH 7.34 (7.32-7.43) 11/11/18 17:30 VBG pCO2 46 mmHg (40-60) 11/11/18 17:30 VBG HCO3 23.0 mmol/L 11/11/18 17:30 VBG Total CO2 26.2 mmol/L (22-28) 11/11/18 17:30 VBG O2 Sat (Calc) 71.3 % (40-65) H 11/11/18 17:30 VBG Base Excess -1.3 mmol/L (0.0-2.0) L 11/11/18 17:30 VBG Potassium 4.1 mmol/L (3.6-5.2) 11/11/18 17:30 Sodium 136.0 mmol/L (132-148) 11/11/18 17:30 Chloride 107.0 mmol/L (98-107) 11/11/18 17:30 Glucose 229 mg/dL (75-110) H 11/11/18 17:30 Lactate 2.0 mmol/L (0.7-2.1) 11/11/18 17:30 FiO2 21.0 % 11/11/18 17:30 Sodium 140 mmol/l (132-148) 11/18/18 09:22 Potassium 4.4 MMOL/L (3.6-5.0) 11/18/18 09:22 Chloride 101 mmol/L (98-107) 11/18/18 09:22 Carbon Dioxide 23 mmol/L (22-30) 11/18/18 09:22 Anion Gap 20 (10-20) 11/18/18 09:22 BUN 16 mg/dl (9-20) 11/18/18 09:22 Creatinine 0.9 mg/dl (0.8-1.5) 11/18/18 09:22 Est GFR ( Amer) > 60 11/18/18 09:22 Est GFR (Non-Af Amer) > 60 11/18/18 09:22 POC Glucose (mg/dL) 185 mg/dL (65-110) H 11/22/18 15:54 Random Glucose 189 mg/dL (75-110) H 11/18/18 09:22 Calcium 9.8 mg/dL (8.4-10.2) 11/18/18 09:22 Total Bilirubin 0.5 mg/dl (0.2-1.3) 11/15/18 04:25 AST 25 U/L (17-59) 11/15/18 04:25 ALT 30 U/L (21-72) 11/15/18 04:25 Alkaline Phosphatase 119 U/L (38-126) 11/15/18 04:25 Total Protein 7.3 G/DL (6.3-8.2) 11/15/18 04:25 Albumin 3.8 g/dL (3.5-5.0) 11/15/18 04:25 Globulin 3.6 gm/dL (2.2-3.9) 11/15/18 04:25 Albumin/Globulin Ratio 1.1 (1.0-2.1) 11/15/18 04:25 Venous Blood Potassium 4.1 mmol/L (3.6-5.2) 11/11/18 17:30 Urine Color Yellow (YELLOW) 11/11/18 18:40 Urine Clarity Clear (Clear) 11/11/18 18:40 Urine pH 6.0 (5.0-8.0) 11/11/18 18:40 Ur Specific [place] 1.026 (1.003-1.030) 11/11/18 18:40 Urine Protein Negative mg/dL (NEGATIVE) 11/11/18 18:40 Urine Glucose (UA) >=500 mg/dL (NEGATIVE) 11/11/18 18:40 Urine Ketones Negative mg/dL (NEGATIVE) 11/11/18 18:40 Urine Blood Negative (NEGATIVE) 11/11/18 18:40 Urine Nitrate Negative (NEGATIVE) 11/11/18 18:40 Urine Bilirubin Negative (NEGATIVE) 11/11/18 18:40 Urine Urobilinogen 0.2-1.0 mg/dL (0.2-1.0) 11/11/18 18:40 Ur Leukocyte Esterase Trace [place]/uL (Negative) 11/11/18 18:40 Urine RBC (Auto) 3 /hpf (0-3) 11/11/18 18:40 Urine Microscopic WBC 9 /hpf (0-5) H 11/11/18 18:40 Urine Bacteria Rare (<OCC) 11/11/18 18:40 Vancomycin Trough 13.2 ug/mL (5.0-10.0) H 11/18/18 09:22 Influenza Typ A,B (EIA) Negative for flu a/b (NEGATIVE) 11/11/18 14:55 - Hospital Course Hospital Course: This is a 68 y/o male with hx of DM 2 , PAD, admitted for recurrence of left ankle infection. 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 He was started on IV antibioitcs and DR Anderson was called for evaluation. Wound care , phsy therapy was started. He was advised to continue IV antibiotics and was sent to subacute rehab for continuation of iv antibiotics for 6 weeks. He was discharged in stable condition. Discharge Exam - Head Exam Head Exam: NORMOCEPHALIC - Eye Exam Eye Exam: Normal appearance - Respiratory Exam Respiratory Exam: Clear to PA & Lateral - Cardiovascular Exam Cardiovascular Exam: REGULAR RHYTHM - GI/Abdominal Exam GI & Abdominal Exam: Normal Bowel Sounds - Neurological Exam Neurological exam: CN II-XII Intact - Psychiatric Exam Psychiatric exam: Normal Mood Discharge Plan - Discharge Medications Prescriptions: ceFAZolin 1 gm in NS [Ancef 1GM in NS] 2 gm IVPB Q12 42 Days bag Empagliflozin/Metformin HCl [Synjardy Xr 12.5-1,000 mg Tab] 1 tab PO BID #60 tab.bp.24h Insulin Degludec/Liraglutide [Xultophy 100 Unit-3.6MG/ml Pen] 38 units SQ HS #1 insuln.pen - Follow Up Plan Condition: FAIR Disposition: TRANSF TO SNF Instructions: Diabetic Foot Ulcer (DC), Cellulitis (Skin Infection), Adult (DC) Additional Instructions: Patient was discharged in stable condition to [facility] for further phsy therapy and continuation of iv antibiotics. Referrals: Alfredo Hutton MD [Staff Provider] - Hector Deluna DPM [Staff Provider] -
--- NOTE | 2018-11-28 20:27 | VASCULAR ---
Procedure: Ultrasound and fluoroscopically placed Right upper extremity PICC. Clinical indication: Long-term IV antibiotics. Technique: The relative risks and indications of the procedure were explained to the patient and written informed consent obtained. The patient was placed supine on the angiographic table and the right arm prepped and draped in the usual sterile fashion. A tourniquet was applied to the right axilla. 1% lidocaine was used to anesthetize the skin and soft tissues at the puncture site above the elbow. The right basilic vein was punctured under direct ultrasound guidance with a micropuncture set. A permanent image was stored. A 0.018 guidewire was advanced however could not be in fat centrally. Of venogram was then performed of the right upper extremity which demonstrated a tortuous appearance of the axillary vein/subclavian vein junction. Using the venogram as a roadmap, a guidewire was extended centrally over a guidewire. Subsequently a 4 [place] single-lumen PICC, size 33 cm, was advanced to the SVC/RA junction under fluoroscopic guidance. The catheter was flushed and secured. The patient tolerated the procedure well. Postprocedure chest image was obtained to ensure location of the catheter tip at the SVC right atrial junction. Impression: Ultrasound and fluoroscopically placed right upper extremity PICC. A 4 [place] single-lumen PICC, size 33 cm was advanced to the SVC/RA junction. PICC ready for use.
== END 2018-11-22 17:11 | DRG 622 ==
LOC: H.ER 11:47 → H.ERHOLD 18:01 → H.TEL 20:32 → H.MEDSURG1 11-20 18:27
PROVIDERS: ADMIT Family Medicine; ATTEND Family Medicine
PROC: 02HV33Z Insertion of Infusion Device into Superior Vena Cava, Percutaneous Approach (ICD-10-PCS; 2018-11-15)
PROC: B518ZZA Fluoroscopy of Superior Vena Cava, Guidance (ICD-10-PCS; 2018-11-15)
PROC: B548ZZA Ultrasonography of Superior Vena Cava, Guidance (ICD-10-PCS; 2018-11-15)
PROC: 0JBP0ZZ Excision of Left Lower Leg Subcutaneous Tissue and Fascia, Open Approach (ICD-10-PCS; principal; 2018-11-15 13:00)
DX: E11.621 Type 2 diabetes mellitus with foot ulcer (principal); A41.9 Sepsis, unspecified organism; L03.116 Cellulitis of left lower limb; L97.329 Non-pressure chronic ulcer of left ankle with unspecified severity; M86.8X7 Other osteomyelitis, ankle and foot; E11.622 Type 2 diabetes mellitus with other skin ulcer; Z89.511 Acquired absence of right leg below knee; E11.51 Type 2 diabetes mellitus with diabetic peripheral angiopathy without gangrene; Z79.4 Long term (current) use of insulin; B95.61 Methicillin susceptible Staphylococcus aureus infection as the cause of diseases classified elsewhere; D64.9 Anemia, unspecified; E11.59 Type 2 diabetes mellitus with other circulatory complications; E66.9 Obesity, unspecified; Z68.38 Body mass index [BMI] 38.0-38.9, adult; E78.00 Pure hypercholesterolemia, unspecified; I10 Essential (primary) hypertension; I25.10 Atherosclerotic heart disease of native coronary artery without angina pectoris; K21.9 Gastro-esophageal reflux disease without esophagitis; Z79.02 Long term (current) use of antithrombotics/antiplatelets; Z79.2 Long term (current) use of antibiotics; Z95.5 Presence of coronary angioplasty implant and graft; H26.9 Unspecified cataract; Z79.899 Other long term (current) drug therapy; R00.0 Tachycardia, unspecified